=== PATIENT | female | born 1950 ===

== ENCOUNTER 2018-04-23 08:14 | Inpatient (IN) | payer MEDICARE, MEDICAID ==
[2018-04-23 08:14] VITALS: BMI 29.8
[2018-04-23] MEDS ORDERED: Sodium Chloride 0.9% 1,000 ML IV ONE (08:51)
--- NOTE | 2018-04-23 08:56 | C.PDOC ---
History Of Present Illness 67 y/o female presents to ED c/o abdominal pain associated with n/v/d ongoing for the past 10 days. Notes being seen by PMD 3 days ago and was instructed to report to ER if symptoms persist. Patient is on IV antibiotics for back skin infection secondary to back surgery. Denies recent travel, blood in stool, or other complaints. [employer] used. 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) History/Exam Limitations: no limitations Past Medical History Reviewed: Historical Data, Nursing Documentation, Vital Signs Vital Signs: Last Vital Signs Temp 101.4 F H 04/23/18 14:35 Pulse 104 H 04/23/18 14:35 Resp 20 04/23/18 14:35 BP 122/73 04/23/18 14:35 Pulse Ox 98 04/23/18 12:37 - Medical History PMH: HTN - [facility] Procedures LAPAROSCOPIC CHOLECYSTECTOMY (04/09/13) VASCULAR CATH IRRIGATION (04/10/13) Family History: States: Unknown Family Hx - Social History Hx Alcohol Use: No Hx Substance Use: No - Immunization History Hx Tetanus Toxoid Vaccination: No Hx Influenza Vaccination: No Hx Pneumococcal Vaccination: No Review Of Systems Except As Marked, All Systems Reviewed And Found Negative. Constitutional: Positive for: Fever (tactile). Negative for: Chills Gastrointestinal: Positive for: Nausea, Vomiting, Abdominal Pain, Diarrhea. Negative for: Melena, Hematochezia, Hematemesis Genitourinary: Negative for: Dysuria, Frequency, Hematuria, Vaginal Discharge Physical Exam - Physical Exam Appears: Non-toxic, No Acute Distress Skin: Normal Color, Warm, Dry Head: Atraumatic, Normacephalic Eye(s): bilateral: Normal Inspection Oral Mucosa: Moist Neck: Normal ROM, Supple Cardiovascular: Rhythm Regular, No Murmur Respiratory: Normal Breath Sounds, No Rales, No Rhonchi, No Wheezing Gastrointestinal/Abdominal: Soft, Tenderness (periumbilical), No Guarding, No Rebound Back: Normal Inspection Extremity: Normal ROM Neurological/Psych: Oriented x3, Normal Speech ED Course And Treatment - Laboratory Results Result Diagrams: 04/23/18 09:12 04/23/18 09:12 ECG: Interpreted By Me, Viewed By Me ECG Rhythm: Sinus Rhythm ECG Interpretation: No Acute Changes Interpretation Of ECG: Normal intervals, normal axis. Non-specific ST wave changes. Rate From EC O2 Sat by Pulse Oximetry: 98 (RA) Pulse Ox Interpretation: Normal Medical Decision Making Medical Decision Making: Impression: Abdominal pain Plan: Abd Pelvis CT Blood work UA CXR EKG Pepcid, Zofran, Toradol, IV fluids cdiff ordered krider given case discussed with DR Vik Gauthier and will admit to medical surgical floor. Disposition Discussed With Dr.: Compa Gauthier Counseled Patient/Family Regarding: Studies Performed, Diagnosis - Disposition Disposition: HOSPITALIZED Disposition Time: 12:35 Condition: FAIR - Clinical Impression Clinical Impression: Colitis, Hypokalemia - Scribe Statement The provider has reviewed the documentation as recorded by the Scribe KP All medical record entries made by the Scribe were at my direction and personally dictated by me. I have reviewed the chart and agree that the record accurately reflects my personal performance of the history, physical exam, medical decision making, and the department course for this patient. I have also personally directed, reviewed, and agree with the discharge instructions and disposition.
[2018-04-23 09:15] LABS: PLATELET COUNT 351 K/uL (130-400)
[2018-04-23 09:25] LABS: BASO % 0.2 % (0.0-2.0); HEMOGLOBIN 9.8 g/dL (11.0-16.0); LYMPH # 0.7 K/uL (1.0-4.3); LYMPH % 4.6 % (20.0-40.0); MEAN CELL VOLUME 77.8 fL (81.0-99.0); MEAN CORPUSCULAR HEMOGLOBIN 25.6 pg (27.0-31.0); MEAN CORPUSCULAR HGB CONC 32.9 g/dL (33.0-37.0); MEAN PLATELET VOLUME 7.7 fL (7.2-11.7); MONO # 0.5 K/uL (0.0-0.8); MONO % 3.3 % (0.0-10.0); NEUT # 13.8 K/uL (1.8-7.0); NEUT % 91.9 % (50.0-75.0); RBC 3.83 Mil/uL (3.80-5.20); RED CELL DISTRIBUTION WIDTH 14.8 % (11.5-14.5)
[2018-04-23] MEDS ORDERED: Sodium Chloride 0.9% 1,000 ML ONE (09:28)
[2018-04-23 09:41] LABS: ALB/GLOB RATIO 1.2 (1.0-2.1); ALBUMIN 3.7 g/dL (3.5-5.0); ALT/SGPT 23 U/L (9-52); AST/SGOT 16 U/L (14-36); BLOOD UREA NITROGEN 9 mg/dL (7-17); CALCIUM 7.9 mg/dl (8.6-10.4); GFR AFRICAN-AMERICAN > 60; GFR NON-AFRICAN AMERICAN > 60; LIPASE 31 U/L (23-300)
[2018-04-23] MEDS ORDERED: Potassium Chloride 20 mEq 100 ML ONE ×2 (09:46→12:08)
--- NOTE | 2018-04-23 09:57 | RAD ---
Date of service: 04/23/2018 PROCEDURE: CHEST RADIOGRAPH, 1 VIEW HISTORY: abd pain COMPARISON: None available. FINDINGS: LUNGS: No acute infiltrate bilaterally. PLEURA: No pneumothorax or pleural fluid seen. CARDIOVASCULAR: Cardiac size appears normal. No pulmonary vascular congestion. Right sided MediPort in place terminating at the cavoatrial junction region. OSSEOUS STRUCTURES: No significant abnormalities. VISUALIZED UPPER ABDOMEN: Surgical clips noted right upper quadrant abdomen. OTHER FINDINGS: None. IMPRESSION: No acute cardiopulmonary disease appreciated.
[2018-04-23] MEDS ORDERED: Iodixanol 320 MG/ML 100 ML BOTTLE IV ONE (10:24)
[2018-04-23 10:50] LABS: GRANULAR CAST 1 /lpf (0-1); SQUAMOUS EPITHIAL 1 /hpf (0-5); URINE BACTERIA RARE (<OCC); URINE BILIRUBIN NEGATIVE (NEGATIVE); URINE BLOOD 1+ (NEGATIVE); URINE CLARITY Hazy (Clear); URINE COLOR Yellow (YELLOW); URINE GLUCOSE (UA) NORMAL (Normal); URINE LEUKOCYTE ESTERASE 1+ Leu/uL (Negative); URINE PROTEIN 2+ mg/dL (NEGATIVE); URINE UROBILINOGEN NORMAL mg/dL (0.2-1.0)
[2018-04-23 11:59] LABS: LYMPHOCYTE 4 % (20-40); MONOCYTE 6 % (0-10); NEUTROPHIL 90 % (50-75); TOTAL CELLS COUNTED 100
[2018-04-23 12:00] LABS: ANISOCYTOSIS SLIGHT; HYPOCHROMIC SLIGHT; OVALOCYTES SLIGHT; PLATELET ESTIMATE NORMAL (NORMAL); POLYCHROMIC SLIGHT
--- NOTE | 2018-04-23 12:07 | CT ---
Date of service: 04/23/2018 PROCEDURE: CT Abdomen and Pelvis with contrast HISTORY: abd pain COMPARISON: None. TECHNIQUE: Contrast dose: Visipaque 320, 100 cc Radiation dose: Total exam DLP = 533.32 mGy-cm. This CT exam was performed using one or more of the following dose reduction techniques: Automated exposure control, adjustment of the mA and/or kV according to patient size, and/or use of iterative reconstruction technique. FINDINGS: LOWER THORAX: Bibasilar dependent atelectasis identified as well a small hiatal hernia. Cardiomegaly is identified as well. No pleural or pericardial effusion appreciated. A catheter is identified in the distal superior vena cava and right atrium. LIVER: Diffuse diminished attenuation throughout the liver suggests hepatic steatosis without focal mass or intrahepatic biliary dilatation identified. GALLBLADDER AND BILE DUCTS: Gallbladder is not identified and may be surgically absent. Clinically correlate. PANCREAS: Unremarkable. No gross lesion or ductal dilatation. SPLEEN: Unremarkable. ADRENALS: Unremarkable. No mass. KIDNEYS AND URETERS: No obstructive uropathy bilaterally. Small lucencies are seen at the upper as well as midpole left kidney, both of which too small to characterize. No perinephric reaction bilaterally. VASCULATURE: Unremarkable. No aortic aneurysm. BOWEL: The stomach is collapsed and is not evaluated well. There is no small or large bowel obstruction identified however there is diffuse thickening of the entire large bowel including the rectum suggestive of potential C difficile colitis. Clinically correlate further. No abscess or free air. No significant ascites. Small-bowel appears unremarkable as imaged. APPENDIX: The appendix not identified. No CT evidence to suggest appendicitis at this time peer PERITONEUM: Unremarkable. No free fluid. No free air. LYMPH NODES: Unremarkable. No enlarged lymph nodes. BLADDER: Unremarkable. REPRODUCTIVE: Unremarkable. BONES: There is a moderate anterior wedge compression fracture of L1, age indeterminate. Further, there are bilateral laminectomies at L4 and L5 with posterior spinal fusion achieved by transpedicular screws and interconnecting rods and as well as bone graft material from L4-S1 inclusively. L4-5 Grade 1 spondylolisthesis stabilized by the fusion. OTHER FINDINGS: None. IMPRESSION: 1. Pancolitis as discussed above without abscess or free air or ascites. Consider potential C difficile etiology. 2. Hepatic steatosis. 3. L1 anterior wedge compression fracture, moderate severity of indeterminate age. 4. Postoperative changes lower lumbar sacral spine as discussed above.
--- NOTE | 2018-04-23 13:36 | CP.PCM.HP ---
Present on Admission - Present on Admission Any Indicators Present on Admission: No Past Patient History - Past Social History Smoking Status: Never Smoked - CARDIAC Hx Hypertension: Yes - MUSCULOSKELETAL/RHEUMATOLOGICAL Other/Comment: Ambulates with a cane. - GASTROINTESTINAL Other/Comment: Colon CA - PSYCHIATRIC Hx Substance Use: No - SURGICAL HISTORY Other/Comment: back surgery ,March 2018,in [facility] - ANESTHESIA Hx Anesthesia: No Hx Anesthesia Reactions: No Meds Allergies/Adverse Reactions: Allergies Allergy/AdvReac Type Severity Reaction Status Date / Time morphine Allergy Verified 04/23/18 08:25 Physical Exam - Constitutional Appears: Well - Head Exam Head Exam: ATRAUMATIC, NORMAL INSPECTION, NORMOCEPHALIC - Eye Exam Eye Exam: EOMI, Normal appearance, PERRL Pupil Exam: NORMAL ACCOMODATION, PERRL - ENT Exam ENT Exam: Mucous Membranes Moist, Normal Exam - Respiratory Exam Respiratory Exam: Decreased Breath Sounds - Cardiovascular Exam Cardiovascular Exam: REGULAR RHYTHM, +S1, +S2 - GI/Abdominal Exam GI & Abdominal Exam: Diminished Bowel Sounds, Soft - Rectal Exam Rectal Exam: Deferred Results - Vital Signs Recent Vital Signs: Last Vital Signs Temp 98.7 F 04/23/18 08:15 Pulse 97 H 04/23/18 12:32 Resp 22 04/23/18 12:32 BP 136/81 04/23/18 12:32 Pulse Ox 98 04/23/18 12:37 - Labs Result Diagrams: 04/23/18 09:12 04/23/18 09:12 Labs: Laboratory Results - last 24 hr 04/23/18 04/23/18 04/23/18 09:12 09:12 10:22 WBC 15.0 H RBC 3.83 Hgb 9.8 L Hct 29.8 L MCV 77.8 L MCH 25.6 L MCHC 32.9 L RDW 14.8 H Plt Count 351 MPV 7.7 Neut % (Auto) 91.9 H Lymph % (Auto) 4.6 L Gilmer % (Auto) 3.3 Eos % (Auto) 0.0 Baso % (Auto) 0.2 Neut # (Auto) 13.8 H Lymph # (Auto) 0.7 L Gil[place] # (Auto) 0.5 Eos # (Auto) 0.0 Baso # (Auto) 0.0 Neutrophils % (Manual) 90 H Lymphocytes % (Manual) 4 L Monocytes % (Manual) 6 Platelet Estimate Normal Polychromasia Slight Hypochromasia (manual) Slight Anisocytosis (manual) Slight Ovalocytes Slight Sodium 142 Potassium 2.5 L* Chloride 97 L Carbon Dioxide 30 Anion Gap 17 BUN 9 Creatinine 0.9 Est GFR ( Amer) > 60 Est GFR (Non-Af Amer) > 60 Random Glucose 140 H Calcium 7.9 L Total Bilirubin 0.6 AST 16 ALT 23 Alkaline Phosphatase 141 H Troponin I 0.0290 Total Protein 6.9 Albumin 3.7 Globulin 3.2 Albumin/Globulin Ratio 1.2 Lipase 31 Urine Color Yellow Urine Clarity Hazy Urine pH 5.0 Ur Specific [place] 1.016 Urine Protein 2+ H Urine Glucose (UA) Normal Urine Ketones Negative Urine Blood 1+ H Urine Nitrate Negative Urine Bilirubin Negative Urine Urobilinogen Normal Ur Leukocyte Esterase 1+ H Urine WBC (Auto) 21 H Urine RBC (Auto) 7 H Ur Squamous Epith Cells 1 Urine Bacteria Rare Hyaline Casts 3-5 H Granular Casts (Auto) 1 Assessment & Plan - Assessment and Plan (Free Text) Plan: cipro ivpb bid protonix lovenox flagyl 500mg iv pb bid id with dr. chavarria kcl 20 total 5 dose cbc cmp mg po4 tomorrow gi with dr. dwyer
[2018-04-23] MEDS: metroNIDAZOLE IV 500 mg/100 ml 500 MG/100 ML BAG IVPB SCH (18:40)
[2018-04-23] MEDS: Ciprofloxacin 400mg/200ml D5W 400 MG/200 ML BAG IVPB SCH (19:40)
--- NOTE | 2018-04-23 19:54 | PCM.FALL ---
Post Fall Progress Note - Post Fall Fall Date: 04/23/18 Fall Time: 07:18 Description of Fall: Patient is a 67 year female who is admitted for colitis. Patient reports that she had a fall as she was trying to get to the bathroom; she was entangled in the IV lines. Patient reports that she did not hit her head but did landed on her right hip. Patient states that she is not in pain. Patient was AA0x3; oriented to place, time and person. Patient had an unremarkable Neurology exam but with unsteady gait. - Post Fall Exam Vital Sign: Vital Sign Post- Fall: BP: 142/84, HR: 110, Temp: 97.6, O2: 95 % RA and RR: 18 Temp Pulse Resp BP Pulse Ox 99.3 F 95 H 22 135/85 97 04/23/18 16:50 04/23/18 16:50 04/23/18 16:50 04/23/18 16:50 04/23/18 16:50 Skull Exam: Negative for: Scalp wound, Scalp hematoma, Scalp depression, Ridge in skull Eye Exam: Positive for: Pupils equal, Pupils reactive Ear Exam: Negative for: Discharge, Bleeding Nose Exam: Negative for: Discharge, Bleeding Skin Exam: Negative for: Colour, Lacerations, Grazes, Bruising Mouth Exam: Negative for: Tongue bitten, Teeth dislodge Neck Exam: Negative for: Tenderness, Tingling, Weakness Spinal Exam: Negative for: Tenderness, Tingling, Weakness Chest Exam: Negative for: Difficulty breathing, Tenderness in collar bones, Tenderness in ribs Abdomen Exam: Positive for: Tenderness (Lower abdominal tenderness due to patient's current diagnosis of colitis ) Pelvic Exam: Negative for: Tenderness Arm Exam: Negative for: Deformity, Alteration in range of movement Leg Exam: Negative for: Deformity, Alteration in range of movement Impression/Plan: Patient is a 67 year female who is admitted for colitis. Patient reports that she had a fall as she was trying to get to the bathroom; she was entangled in the IV lines; mechanical fall: 1. Encourage to call nursing staff for assistance 2. Bedside commode 3. Fall risk precautions 4. Initiate bed alarm 5. Order right hip X-ray, to rule any acute issues post -fall \
[2018-04-23] MEDS: Enoxaparin 40 mg Syringe SC SCH (23:00)
[2018-04-24] MEDS: metroNIDAZOLE IV 500 mg/100 ml 500 MG/100 ML BAG IVPB SCH ×2 (05:21→18:17)
[2018-04-24] MEDS: Ciprofloxacin 400mg/200ml D5W 400 MG/200 ML BAG IVPB SCH ×2 (06:27→19:09)
[2018-04-24 07:18] LABS: BASO # 0.1 K/uL (0.0-0.2); BASO % 0.2 % (0.0-2.0); EOS % 0.1 % (0.0-4.0); HEMOGLOBIN 11.5 g/dL (11.0-16.0); LYMPH # 0.7 K/uL (1.0-4.3); LYMPH % 2.6 % (20.0-40.0); MEAN CELL VOLUME 78.3 fL (81.0-99.0); MEAN CORPUSCULAR HEMOGLOBIN 25.9 pg (27.0-31.0); MEAN CORPUSCULAR HGB CONC 33.1 g/dL (33.0-37.0); MEAN PLATELET VOLUME 8.3 fL (7.2-11.7); MONO # 0.6 K/uL (0.0-0.8); MONO % 2.3 % (0.0-10.0); NEUT # 26.2 K/uL (1.8-7.0); NEUT % 94.8 % (50.0-75.0); PLATELET COUNT 436 K/uL (130-400); RBC 4.43 Mil/uL (3.80-5.20); RED CELL DISTRIBUTION WIDTH 15.1 % (11.5-14.5)
[2018-04-24 07:25] LABS: WHITE BLOOD COUNT 27.7 K/uL (4.8-10.8)
[2018-04-24 07:38] LABS: ALT/SGPT 20 U/L (9-52); AST/SGOT 22 U/L (14-36); BLOOD UREA NITROGEN 15 mg/dL (7-17); CALCIUM 6.8 mg/dl (8.6-10.4); GFR AFRICAN-AMERICAN > 60; GFR NON-AFRICAN AMERICAN > 60
--- NOTE | 2018-04-24 07:49 | CP.PCM.CON ---
<Darlene Gauthier - Last Filed: 04/24/18 14:36> History of Present Illness - History of Present Illness History of Present Illness: PGY5 GI Initial COnsult Lois Garrison is a 67 y/o female who presents to ED c/o abdominal pain associated with nausea vomiting and diarrhea for the past 2 weeks. Pt states that her symptoms started after her back surgery. She notes starting multiple courses of abx inpt and oupt. She notes having 4-5x BM daily. She notes that the BM are liquidy with some formed BM. Denies any rectal bleeding. Pt also reports having nausea and vomiting for the past 3 days. Her last episode was last night. She notes bilous emesis w/o blood. She is also complaining of abd pain which is diffuse, she notes the pain as 4 out of 10. denies any recent travel or sick exposure. She notes previous colonoscopy but does not recall the findings or results. CT abd revealed lucas colitis. Pt was started on Cipro, IV flagyl and Po vanco. PMHx: HTN, lower back pain PSHx: lumbar back fixation, lap jase Family hx: reviewed, neg otherwise ROS: 12 point ROS conducted, neg other than above Past Patient History - Past Medical History & Family History Past Medical History?: Yes - Past Social History Smoking Status: Never Smoked - CARDIAC Hx Cardiac Disorders: No - PULMONARY Hx Respiratory Disorders: No - NEUROLOGICAL Hx Neurological Disorder: Yes Hx Alzheimer's Disease: Yes (slight as per pt. daughter) - HEENT Hx HEENT Problems: Yes Other/Comment: wear eyeglasses - RENAL Hx Chronic Kidney Disease: No - ENDOCRINE/METABOLIC Hx Endocrine Disorders: No - HEMATOLOGICAL/ONCOLOGICAL Hx Blood Disorders: No - INTEGUMENTARY Hx Dermatological Problems: No - MUSCULOSKELETAL/RHEUMATOLOGICAL Hx Arthritis: Yes Hx Back Pain: Yes Hx Falls: Yes Hx Unsteady Gait: Yes Other/Comment: Ambulates with a cane, pt. uses walker - GASTROINTESTINAL Hx Gastrointestinal Disorders: Yes Hx Colitis: Yes Hx Diarrhea: Yes Hx Gastritis: Yes Other/Comment: Colon CA - GENITOURINARY/GYNECOLOGICAL Hx Genitourinary Disorders: No - PSYCHIATRIC Hx Psychophysiologic Disorder: No Hx Substance Use: No - SURGICAL HISTORY Hx Surgeries: Yes Hx Cholecystectomy: Yes Other/Comment: back surgery ,March 2018,in [facility] - ANESTHESIA Hx Anesthesia: No Hx Anesthesia Reactions: No Hx Malignant Hyperthermia: No Has any member of the family had a problem w/ anesthesia?: No Meds Allergies/Adverse Reactions: Allergies Allergy/AdvReac Type Severity Reaction Status Date / Time morphine Allergy Verified 04/23/18 08:25 - Medications Medications: Current Medications Acetaminophen (Tylenol 325mg Tab) 650 mg PO Q8 PRN PRN Reason: fever Aspirin (Aspirin Chewable) 81 mg PO DAILY [facility] Enoxaparin Sodium (Lovenox) 40 mg SC DAILY [facility] Last Admin: 04/23/18 23:00 Dose: 40 mg Ergocalciferol (Drisdol 50,000 Intl Units Cap) 1 cap PO QWK [facility] Home Med (Meloxicam [Mobic]) 1 tab PO DAILY [facility] Ciprofloxacin (Cipro 400mg/200ml Dsw) 400 mg in 200 mls @ 133 mls/hr IVPB Q12H [facility] PRN Reason: Protocol Last Admin: 04/24/18 06:27 Dose: 133 mls/hr Metronidazole (Flagyl) 500 mg in 100 mls @ 100 mls/hr IVPB Q12H [facility] PRN Reason: Protocol Last Admin: 04/24/18 05:21 Dose: 100 mls/hr Ondansetron HCl (Zofran Inj) 4 mg IVP Q8 PRN PRN Reason: Nausea/Vomiting Last Admin: 04/24/18 04:12 Dose: 4 mg Tramadol HCl (Ultram) 50 mg PO Q6H PRN PRN Reason: Pain, moderate (4-7) Physical Exam - Constitutional Appears: In Acute Distress - Head Exam Head Exam: ATRAUMATIC, NORMOCEPHALIC - Eye Exam Eye Exam: Normal appearance - ENT Exam ENT Exam: Mucous Membranes Moist, Normal Exam - Neck Exam Neck exam: Positive for: Normal Inspection - Respiratory Exam Respiratory Exam: Clear to Auscultation Bilateral, NORMAL BREATHING PATTERN. absent: Rales, Rhonchi, Wheezes, Respiratory Distress - Cardiovascular Exam Cardiovascular Exam: REGULAR RHYTHM, +S1, +S2 - GI/Abdominal Exam GI & Abdominal Exam: Normal Bowel Sounds, Soft. absent: Firm, Guarding, Organomegaly, Rebound, Rigid - Extremities Exam Extremities exam: Negative for: joint swelling, pedal edema - Neurological Exam Neurological exam: Alert, Oriented x3 - Psychiatric Exam Psychiatric exam: Normal Affect, Normal Mood - Skin Skin Exam: Dry, Intact, Normal Color, Warm Results - Vital Signs Recent Vital Signs: Last Vital Signs Temp 98.2 F 04/24/18 04:20 Pulse 112 H 04/24/18 04:20 Resp 20 04/24/18 04:20 BP 116/70 04/24/18 04:20 Pulse Ox 97 04/24/18 04:20 - Labs Result Diagrams: 04/24/18 07:03 04/24/18 07:03 Labs: Laboratory Results - last 24 hr 04/23/18 04/23/18 04/23/18 09:12 09:12 10:22 WBC 15.0 H RBC 3.83 Hgb 9.8 L Hct 29.8 L MCV 77.8 L MCH 25.6 L MCHC 32.9 L RDW 14.8 H Plt Count 351 MPV 7.7 Neut % (Auto) 91.9 H Lymph % (Auto) 4.6 L [place] % (Auto) 3.3 Eos % (Auto) 0.0 Baso % (Auto) 0.2 Neut # (Auto) 13.8 H Lymph # (Auto) 0.7 L [place] # (Auto) 0.5 Eos # (Auto) 0.0 Baso # (Auto) 0.0 Neutrophils % (Manual) 90 H Lymphocytes % (Manual) 4 L Monocytes % (Manual) 6 Platelet Estimate Normal Polychromasia Slight Hypochromasia (manual) Slight Anisocytosis (manual) Slight Ovalocytes Slight Sodium 142 Potassium 2.5 L* Chloride 97 L Carbon Dioxide 30 Anion Gap 17 BUN 9 Creatinine 0.9 Est GFR ( Amer) > 60 Est GFR (Non-Af Amer) > 60 Random Glucose 140 H Calcium 7.9 L Phosphorus Total Bilirubin 0.6 AST 16 ALT 23 Alkaline Phosphatase 141 H Troponin I 0.0290 Total Protein 6.9 Albumin 3.7 Globulin 3.2 Albumin/Globulin Ratio 1.2 Lipase 31 Urine Color Yellow Urine Clarity Hazy Urine pH 5.0 Ur Specific [place] 1.016 Urine Protein 2+ H Urine Glucose (UA) Normal Urine Ketones Negative Urine Blood 1+ H Urine Nitrate Negative Urine Bilirubin Negative Urine Urobilinogen Normal Ur Leukocyte Esterase 1+ H Urine WBC (Auto) 21 H Urine RBC (Auto) 7 H Ur Squamous Epith Cells 1 Urine Bacteria Rare Hyaline Casts 3-5 H Granular Casts (Auto) 1 04/24/18 04/24/18 07:03 07:03 WBC 27.7 H D RBC 4.43 Hgb 11.5 Hct 34.7 MCV 78.3 L MCH 25.9 L MCHC 33.1 RDW 15.1 H Plt Count 436 H MPV 8.3 Neut % (Auto) 94.8 H Lymph % (Auto) 2.6 L [place] % (Auto) 2.3 Eos % (Auto) 0.1 Baso % (Auto) 0.2 Neut # (Auto) 26.2 H Lymph # (Auto) 0.7 L [place] # (Auto) 0.6 Eos # (Auto) 0.0 Baso # (Auto) 0.1 Neutrophils % (Manual) Lymphocytes % (Manual) Monocytes % (Manual) Platelet Estimate Polychromasia Hypochromasia (manual) Anisocytosis (manual) Ovalocytes Sodium 137 Potassium 3.3 L Chloride 104 Carbon Dioxide 22 Anion Gap 15 BUN 15 Creatinine 0.8 Est GFR ( Amer) > 60 Est GFR (Non-Af Amer) > 60 Random Glucose 174 H Calcium 6.8 L Phosphorus 2.1 L Total Bilirubin 0.5 AST 22 ALT 20 Alkaline Phosphatase 146 H Troponin I Total Protein 5.9 L Albumin 3.0 L Globulin 2.9 Albumin/Globulin Ratio 1.0 Lipase Urine Color Urine Clarity Urine pH Ur Specific Barron Urine Protein Urine Glucose (UA) Urine Ketones Urine Blood Urine Nitrate Urine Bilirubin Urine Urobilinogen Ur Leukocyte Esterase Urine WBC (Auto) Urine RBC (Auto) Ur Squamous Epith Cells Urine Bacteria Hyaline Casts Granular Casts (Auto) Assessment & Plan - Assessment and Plan (Free Text) Assessment: Lois Garrison is a 67 y/o female who presents to ED c/o abdominal pain associated with nausea vomiting and diarrhea for the past 2 weeks. Pancolitis, etiology unknown, suspect c. diff; r/o autoimmune and other infectous etiology intractable nausea and vomiting diarrhea 2/2 above SIRS recent lumbar sx Plan: -continue cipro flagyl as per ID -started on vanco 500mg QID -stool c.diff and culture pending -blood cultures pending -continue diet as tolerated -continue IV fluids -recommend strict K monitoring - will eventually benefit from oupt colonoscopy D/W Dr. Myrick <Ariella Myrick - Last Filed: 04/25/18 08:51> Meds - Medications Medications: Current Medications Acetaminophen (Tylenol 325mg Tab) 650 mg PO Q8 PRN PRN Reason: fever Aspirin (Aspirin Chewable) 81 mg PO DAILY [facility] Last Admin: 04/24/18 09:29 Dose: 81 mg Enoxaparin Sodium (Lovenox) 40 mg SC DAILY [facility] Last Admin: 04/24/18 09:29 Dose: 40 mg Ergocalciferol (Drisdol 50,000 Intl Units Cap) 1 cap PO QWK [facility] Last Admin: 04/24/18 09:29 Dose: 1 cap Dexmedetomidine HCl 200 mcg/ (Sodium Chloride) 50 mls @ 3.74 mls/hr IV TITR PRN ; Protocol; 0.2 MCG/KG/HR PRN Reason: Agitation Last Admin: 04/25/18 07:40 Dose: 0.2 mcg/kg/hr, 3.74 mls/hr Meropenem 500 mg/ Sodium (Chloride) 100 mls @ 100 mls/hr IVPB Q8H [facility] PRN Reason: Protocol Last Admin: 04/25/18 07:42 Dose: 100 mls/hr Metronidazole (Flagyl) 500 mg in 100 mls @ 100 mls/hr IVPB Q8H [facility] PRN Reason: Protocol Last Admin: 04/25/18 08:38 Dose: 100 mls/hr Sodium Bicarbonate 100 meq/ (Sodium Chloride) 1,100 mls @ 75 mls/hr IV .[id number] [facility] Last Admin: 04/25/18 07:57 Dose: 75 mls/hr Lactated Ringer's (Lactated Ringer's) 1,000 mls @ 125 mls/hr IV .Q8H [facility] Last Admin: 04/25/18 08:36 Dose: 125 mls/hr Ondansetron HCl (Zofran Inj) 4 mg IVP Q8 PRN PRN Reason: Nausea/Vomiting Last Admin: 04/24/18 13:09 Dose: 4 mg Vancomycin HCl (Vancocin (Oral Or Rectal Use)) 500 mg PO QID [facility] PRN Reason: Protocol Last Admin: 04/24/18 22:50 Dose: 500 mg Results - Vital Signs Recent Vital Signs: Last Vital Signs Temp 98.7 F 04/25/18 06:00 Pulse 113 H 04/25/18 07:10 Resp 20 04/25/18 07:10 BP 108/90 04/25/18 06:48 Pulse Ox 96 04/25/18 07:10 - Labs Result Diagrams: 04/25/18 04:19 04/25/18 04:19 Labs: Laboratory Results - last 24 hr 04/24/18 04/24/18 04/25/18 07:03 22:27 04:13 WBC RBC Hgb Hct MCV MCH MCHC RDW Plt Count MPV Neut % (Auto) Lymph % (Auto) [place] % (Auto) Eos % (Auto) Baso % (Auto) Neut # (Auto) Lymph # (Auto) [place] # (Auto) Eos # (Auto) Baso # (Auto) Neutrophils % (Manual) 92 H Band Neutrophils % 4 H Lymphocytes % (Manual) 3 L Monocytes % (Manual) 1 Myelocytes % Platelet Estimate Normal Large Platelets Present Hypochromasia (manual) Slight Poikilocytosis (manual Slight Anisocytosis (manual) Slight D-Dimer, Quantitative Puncture Site Femoral by pCO2 23 L pO2 56 L HCO3 6.0 L* ABG pH 7.03 L* ABG Total CO2 6.8 L ABG O2 Saturation 82.9 L ABG Base Excess -23.3 L Brandon Test Pos ABG Potassium 4.3 A-a O2 Difference 628.0 Respiratory Index 11.2 Sodium 130.0 L Chloride 97.0 L Glucose 373 H Lactate 12.9 H* Vent Mode Mechanical Rate FiO2 100.0 Tidal Volume PEEP Inspiratory BiPAP 12 Expiratory BiPAP 5 Crit Value Called To Crit Value Called By Devin Crit Value Read Back Y Blood Gas Notified Time 416 Potassium Carbon Dioxide Anion Gap BUN Creatinine Est GFR ( Amer) Est GFR (Non-Af Amer) Random Glucose Calcium Phosphorus Magnesium Total Bilirubin AST ALT Alkaline Phosphatase Troponin I Total Protein Albumin Globulin Albumin/Globulin Ratio Arterial Blood Potassium 4.3 Influenza Typ A,B (EIA) Negative for flu a/b Blood Type Antibody Screen 04/25/18 04/25/18 04/25/18 04:19 04:19 05:06 WBC 70.2 H* D RBC 5.55 H Hgb 13.9 D Hct 46.0 MCV 82.8 D MCH 25.1 L MCHC 30.3 L RDW 16.2 H Plt Count 347 MPV 9.3 Neut % (Auto) 90.9 H Lymph % (Auto) 6.1 L [place] % (Auto) 2.4 Eos % (Auto) 0.4 Baso % (Auto) 0.2 Neut # (Auto) 63.8 H Lymph # (Auto) 4.2 [place] # (Auto) 1.7 H Eos # (Auto) 0.3 Baso # (Auto) 0.1 Neutrophils % (Manual) 75 Band Neutrophils % 12 H* Lymphocytes % (Manual) 9 L Monocytes % (Manual) 2 Myelocytes % 2 H Platelet Estimate Normal Large Platelets Hypochromasia (manual) Poikilocytosis (manual Anisocytosis (manual) Slight D-Dimer, Quantitative Puncture Site R fem pCO2 23 L pO2 226 H HCO3 9.2 L* ABG pH 7.12 L* ABG Total CO2 8.2 L ABG O2 Saturation 100.7 H ABG Base Excess -20.2 L Brandon Test Na ABG Potassium 3.1 L A-a O2 Difference 458.0 Respiratory Index 2.0 Sodium 136 134.0 Chloride 101 104.0 Glucose 291 H Lactate 8.5 H* Vent Mode Prvc Mechanical Rate 20 FiO2 100.0 Tidal Volume 400 PEEP 5 Inspiratory BiPAP Expiratory BiPAP Crit Value Called To Crit Value Called By Jose R mallet cutter Crit Value Read Back Y Blood Gas Notified Time 510 Potassium 4.2 Carbon Dioxide 8 L* D Anion Gap 31 H BUN 23 H Creatinine 2.3 H Est GFR ( Amer) 26 Est GFR (Non-Af Amer) 21 Random Glucose 335 H Calcium 6.7 L Phosphorus 5.7 H Magnesium 2.2 Total Bilirubin 0.5 AST 50 H D ALT 18 Alkaline Phosphatase 160 H Troponin I 0.0370 Total Protein 5.8 L Albumin 2.7 L Globulin 3.1 Albumin/Globulin Ratio 0.9 L Arterial Blood Potassium 3.1 L Influenza Typ A,B (EIA) Blood Type Antibody Screen 04/25/18 04/25/18 05:30 05:35 WBC RBC Hgb Hct MCV MCH MCHC RDW Plt Count MPV Neut % (Auto) Lymph % (Auto) [place] % (Auto) Eos % (Auto) Baso % (Auto) Neut # (Auto) Lymph # (Auto) [place] # (Auto) Eos # (Auto) Baso # (Auto) Neutrophils % (Manual) Band Neutrophils % Lymphocytes % (Manual) Monocytes % (Manual) Myelocytes % Platelet Estimate Large Platelets Hypochromasia (manual) Poikilocytosis (manual Anisocytosis (manual) D-Dimer, Quantitative 5364 H Puncture Site pCO2 pO2 HCO3 ABG pH ABG Total CO2 ABG O2 Saturation ABG Base Excess Brandon Test ABG Potassium A-a O2 Difference Respiratory Index Sodium Chloride Glucose Lactate Vent Mode Mechanical Rate FiO2 Tidal Volume PEEP Inspiratory BiPAP Expiratory BiPAP Crit Value Called To Crit Value Called By Crit Value Read Back Blood Gas Notified Time Potassium Carbon Dioxide Anion Gap BUN Creatinine Est GFR ( Amer) Est GFR (Non-Af Amer) Random Glucose Calcium Phosphorus Magnesium Total Bilirubin AST ALT Alkaline Phosphatase Troponin I Total Protein Albumin Globulin Albumin/Globulin Ratio Arterial Blood Potassium Influenza Typ A,B (EIA) Blood Type O NEGATIVE Antibody Screen Negative Attending/Attestation - Attestation I have personally seen and examined this patient.: Yes I have fully participated in the care of the patient.: Yes I have reviewed all pertinent clinical information: Yes Notes (Text): 04/25/18 08:50 This is a 67 y/o female who presents to ED c/o abdominal pain associated with nausea vomiting and diarrhea for the past 2 weeks likely C diff colitis. Ct reviewed. Will start vancomycin po due to age and SIRS. Send stool infectious work up. Diet as tolerated
[2018-04-24 09:23] LABS: BANDS 4 % (0-2); LYMPHOCYTE 3 % (20-40); MONOCYTE 1 % (0-10); NEUTROPHIL 92 % (50-75); PLATELET ESTIMATE NORMAL (NORMAL); TOTAL CELLS COUNTED 100
[2018-04-24 09:24] LABS: ANISOCYTOSIS SLIGHT; HYPOCHROMIC SLIGHT; LARGE PLATELETS PRESENT; POIKILOCYTOSIS SLIGHT
[2018-04-24] MEDS: Enoxaparin 40 mg Syringe SC SCH (09:29)
[2018-04-24] MEDS ORDERED: Ergocalciferol 50,000 Intl Units Cap PO SCH (10:00)
[2018-04-24] MEDS: Magnesium Sulfate 1 gm in D5W 1 GM/100 ML BAG IVPB SCH ×2 (10:17→10:47)
--- NOTE | 2018-04-24 10:27 | RAD ---
PROCEDURE: Radiographs of the pelvis and bilateral hips HISTORY: Post-fall COMPARISON: None. FINDINGS: BONES: Pelvis: Unremarkable. Right hip:Unremarkable. Left hip:Unremarkable. JOINTS: Right hip: Unremarkable. Left hip: Unremarkable. Sacroiliac Joints: Unremarkable. Pubic symphysis: Unremarkable. SOFT TISSUES: Normal. OTHER FINDINGS: Incidentally noted excreted contrast material in the urinary bladder. Evidence of prior lumbar fixation with pedicle screws and rods. IMPRESSION: No acute fracture.
--- NOTE | 2018-04-24 12:11 | CP.PCM.CON ---
History of Present Illness - History of Present Illness History of Present Illness: 67 y/o female who presents to ED c/o abdominal pain associated with nausea vomiting and diarrhea for the past 2 weeks. Pt states that her symptoms started after her back surgery. hx HTN/ LBP /Colon Ca admitted with colitis PO Vanco added cultures pending GI eval in progress Review of Systems - Review of Systems All systems: reviewed and no additional remarkable complaints except - Constitutional Constitutional: As Per HPI - EENT Eyes: absent: As Per HPI, Blind Spots, Blurred Vision, Change in Vision, Decreased Night Vision, Diplopia, Discharge, Dry Eye, Exophthalmos, Floaters, Irritation, Itchy Eyes, Loss of Peripheral Vision, Pain, Photophobia, Requires Corrective Lenses, Sees Flashes, Spots in Vision, Tunnel Vision, Other Visual Disturbances, Loss of Vision, Other Ears: absent: As Per HPI, Decreased Hearing, Ear Discharge, Ear Pain, Tinnitus, Abnormal Hearing, Disequilibrium, Dizziness, Other Nose/Mouth/Throat: absent: As Per HPI, Epistaxis, Nasal Congestion, Nasal Discharge, Nasal Obstruction, Nasal Trauma, Nose Pain, Post Nasal Drip, Sinus Pain, Sinus Pressure, Bleeding Gums, Change in Voice, Dental Pain, Dry Mouth, Dysphagia, Halitosis, Hoarsness, Lip Swelling, Mouth Lesions, Mouth Pain, Odynophagia, Sore Throat, Throat Swelling, Tongue Swelling, Facial Pain, Neck Pain, Neck Mass, Other - Breasts Breasts: absent: As Per HPI, Change in Shape, Mass, Pain, Nipple Discharge, Nipple Inversion, Skin Changes, Swelling, Other - Cardiovascular Cardiovascular: As Per HPI - Respiratory Respiratory: absent: As Per HPI, Cough, Dyspnea, Hemoptysis, Dyspnea on Exertion , Wheezing, Snoring, Stridor, Pain on Inspiration, Chest Congestion, Excessive Mucous Production, Change in Mucous Color, Pain with Coughing, Other - Gastrointestinal Gastrointestinal: As Per HPI - Genitourinary Genitourinary: absent: As Per HPI, Change in Urinary Stream, Difficulty Urinating, Dysuria, Flank Pain, Hematuria, Pyuria, Nocturia, Urinary Incontinence, Urinary Frequency, Urinary Hesitance, Urinary Urgency, Voiding Freq/Small Amts, Freq UTI, Hx Renal/Bladder Calculi, Hx /Renal Surgery, Bladder Distension, Other - Reproductive: Female Reproductive:Female: absent: As Per HPI, Amenorrhea, Amenorrhea/ Control, Currently Menstual, Cycle <21 Days, Cycle >35 Days, Cycle Variable, Menses 1-7 Days, Menses >/= 8 Days, Menses Variable, Cycle > 4 Weeks Between, No Menses for 6 Months, Heavy Menses, Light Menses, Normal Menses, Spotting Between Cycles , S/P Hysterectomy, Menopausal, Post Menopausal, Premenarche, Abnormal Vaginal Bleeding, Dysmenorrhea, Dyspareunia, Genital Lesions, Genital Pruritis, Pelvic Pain, Prolapse Symptoms, Sexual Dysfunction, Vaginal Discharge, Vaginal Dryness , Vaginal Odor, Vaginal Pruritis, Other - Menstruation Menstruation: absent: As Per HPI, Amenorrhea, Amenorrhea/ Control, Currently Menstual, Cycle <21 Days, Cycle >35 Days, Cycle Variable, Menses 1-7 Days, Menses >/= 8 Days, Menses Variable, Cycle > 4 Weeks Between, No Menses for 6 Months, Heavy Menses, Light Menses, Normal Menses, Spotting Between Cycles , S/P Hysterectomy, Menopausal, Post Menopausal, Premenarche, Abnormal Vaginal Bleeding, Dysmenorrhea, Other - Musculoskeletal Musculoskeletal: absent: As Per HPI, Abnormal Gait, Arthralgias, Atrophy, Back Pain, Deformity, Joint Swelling, Limited Range of Motion, Loss of Height, Muscle Cramps, Muscle Weakness, Myalgias, Neck Pain, Numbness, Radiating Pain into Limb, Stiffness, Tingling, Other - Integumentary Integumentary: absent: As Per HPI, Acne, Alopecia, Bleeding Lesions, Change in Hair, Change in Nails, Change in Pigmentation, Changing Lesions, Dry Skin, Erythema, Furuncle, Hirsutism, Lesions, New Lesions, Non-Healing Lesions, Photosensitivity, Pruritus, Rash, Skin Pain, Skin Ulcer, Sores, Striae, Swelling , Unusual Bruising, Wounds, Jaundice, Other Past Patient History - Past Medical History & Family History Past Medical History?: Yes - Past Social History Smoking Status: Never Smoked - CARDIAC Hx Cardiac Disorders: No - PULMONARY Hx Respiratory Disorders: No - NEUROLOGICAL Hx Neurological Disorder: Yes Hx Alzheimer's Disease: Yes (slight as per pt. daughter) - HEENT Hx HEENT Problems: Yes Other/Comment: wear eyeglasses - RENAL Hx Chronic Kidney Disease: No - ENDOCRINE/METABOLIC Hx Endocrine Disorders: No - HEMATOLOGICAL/ONCOLOGICAL Hx Blood Disorders: No - INTEGUMENTARY Hx Dermatological Problems: No - MUSCULOSKELETAL/RHEUMATOLOGICAL Hx Arthritis: Yes Hx Back Pain: Yes Hx Falls: Yes Hx Unsteady Gait: Yes Other/Comment: Ambulates with a cane, pt. uses walker - GASTROINTESTINAL Hx Gastrointestinal Disorders: Yes Hx Colitis: Yes Hx Diarrhea: Yes Hx Gastritis: Yes Other/Comment: Colon CA - GENITOURINARY/GYNECOLOGICAL Hx Genitourinary Disorders: No - PSYCHIATRIC Hx Psychophysiologic Disorder: No Hx Substance Use: No - SURGICAL HISTORY Hx Surgeries: Yes Hx Cholecystectomy: Yes Other/Comment: back surgery ,March 2018,in [facility] - ANESTHESIA Hx Anesthesia: No Hx Anesthesia Reactions: No Hx Malignant Hyperthermia: No Has any member of the family had a problem w/ anesthesia?: No Meds Allergies/Adverse Reactions: Allergies Allergy/AdvReac Type Severity Reaction Status Date / Time morphine Allergy Verified 04/23/18 08:25 - Medications Medications: Current Medications Acetaminophen (Tylenol 325mg Tab) 650 mg PO Q8 PRN PRN Reason: fever Aspirin (Aspirin Chewable) 81 mg PO DAILY [facility] Last Admin: 04/24/18 09:29 Dose: 81 mg Enoxaparin Sodium (Lovenox) 40 mg SC DAILY [facility] Last Admin: 04/24/18 09:29 Dose: 40 mg Ergocalciferol (Drisdol 50,000 Intl Units Cap) 1 cap PO QWK [facility] Last Admin: 04/24/18 09:29 Dose: 1 cap Home Med (Meloxicam [Mobic]) 1 tab PO DAILY [facility] Ciprofloxacin (Cipro 400mg/200ml Dsw) 400 mg in 200 mls @ 133 mls/hr IVPB Q12H [facility] PRN Reason: Protocol Last Admin: 04/24/18 06:27 Dose: 133 mls/hr Metronidazole (Flagyl) 500 mg in 100 mls @ 100 mls/hr IVPB Q12H [facility] PRN Reason: Protocol Last Admin: 04/24/18 05:21 Dose: 100 mls/hr Ondansetron HCl (Zofran Inj) 4 mg IVP Q8 PRN PRN Reason: Nausea/Vomiting Last Admin: 04/24/18 04:12 Dose: 4 mg Tramadol HCl (Ultram) 50 mg PO Q6H PRN PRN Reason: Pain, moderate (4-7) Vancomycin HCl (Vancocin (Oral Or Rectal Use)) 500 mg PO QID [facility] PRN Reason: Protocol Physical Exam - Constitutional Appears: Non-toxic, Chronically Ill - Head Exam Head Exam: NORMOCEPHALIC - Eye Exam Eye Exam: absent: Scleral icterus - ENT Exam ENT Exam: Mucous Membranes Dry - Neck Exam Neck exam: Negative for: Lymphadenopathy - Respiratory Exam Respiratory Exam: Decreased Breath Sounds - Cardiovascular Exam Cardiovascular Exam: REGULAR RHYTHM - GI/Abdominal Exam GI & Abdominal Exam: Diminished Bowel Sounds, Distended, Tenderness. absent: Guarding, Rebound, Rigid - Rectal Exam Rectal Exam: Deferred - Exam Exam: NORMAL INSPECTION - Extremities Exam Extremities exam: Negative for: calf tenderness, pedal edema - Back Exam Back exam: absent: CVA tenderness (L), CVA tenderness (R) - Neurological Exam Neurological exam: Alert, CN II-XII Intact, Oriented x3, Reflexes Normal - Psychiatric Exam Psychiatric exam: Normal Mood - Skin Skin Exam: Dry Results - Vital Signs Recent Vital Signs: Last Vital Signs Temp 98.2 F 04/24/18 08:41 Pulse 110 H 04/24/18 08:41 Resp 18 04/24/18 08:41 BP 101/67 04/24/18 08:41 Pulse Ox 94 L 04/24/18 08:41 - Labs Result Diagrams: 04/25/18 10:42 04/25/18 04:19 Labs: Laboratory Results - last 24 hr 04/24/18 04/24/18 07:03 07:03 WBC 27.7 H D RBC 4.43 Hgb 11.5 Hct 34.7 MCV 78.3 L MCH 25.9 L MCHC 33.1 RDW 15.1 H Plt Count 436 H MPV 8.3 Neut % (Auto) 94.8 H Lymph % (Auto) 2.6 L [place] % (Auto) 2.3 Eos % (Auto) 0.1 Baso % (Auto) 0.2 Neut # (Auto) 26.2 H Lymph # (Auto) 0.7 L [place] # (Auto) 0.6 Eos # (Auto) 0.0 Baso # (Auto) 0.1 Neutrophils % (Manual) 92 H Band Neutrophils % 4 H Lymphocytes % (Manual) 3 L Monocytes % (Manual) 1 Platelet Estimate Normal Large Platelets Present Hypochromasia (manual) Slight Poikilocytosis (manual Slight Anisocytosis (manual) Slight Sodium 137 Potassium 3.3 L Chloride 104 Carbon Dioxide 22 Anion Gap 15 BUN 15 Creatinine 0.8 Est GFR ( Amer) > 60 Est GFR (Non-Af Amer) > 60 Random Glucose 174 H Calcium 6.8 L Phosphorus 2.1 L Magnesium 1.0 L* Total Bilirubin 0.5 AST 22 ALT 20 Alkaline Phosphatase 146 H Total Protein 5.9 L Albumin 3.0 L Globulin 2.9 Albumin/Globulin Ratio 1.0 Assessment & Plan - Assessment and Plan (Free Text) Plan: colitis r/o c diff hx colon Ca GI eval start PO Vanco send cultures and c diff
[2018-04-24] MEDS: Vancomycin 125 MG/5 ML SOLN (ORAL/RECTAL) PO SCH ×3 (13:43→22:50)
[2018-04-24] MEDS ORDERED: Sodium Chloride 0.9% 500 ML IV ONE (17:08)
--- NOTE | 2018-04-24 17:22 | PCM.RRT ---
NUCLEAR SECURITY OFFICER Nurses Assessment New IV Insertion Tolerance: Good - Head Head Exam: ATRAUMATIC, NORMAL INSPECTION, NORMOCEPHALIC - Eyes Eye Exam: EOMI, Normal appearance, PERRL - Respiratory Exam Respiratory Exam: Clear to Ausculation Bilateral, NORMAL BREATHING PATTERN - Cardiovascular Exam Cardiovascular Exam: REGULAR RHYTHM, +S1, +S2 - GI/Abdominal Exam GI & Abdominal Exam: Soft, Normal Bowel Sounds - Neurological Exam Neurological Exam: Alert, Awake, CN II-XII Intact, Oriented x3 Plan - Assessment of Findings&Treatment Plan 67 year old female with a past medical history of hypertension and lower back pain who was admitted for abdominal pain associated with nausea and vomiting for the past two weeks. NUCLEAR SECURITY OFFICER was called when patient finished urinating and extremities began to shake and her eyes rolled began rolling per Nurse. NUCLEAR SECURITY OFFICER was called for suspected Seizure. After examining patient it was ruled out a seizure and more likely a vasovagal response from using the toilet. Initial VS: BP:116/83 T:97.3 95% on Room Air Blood sugar:225 Heart Rate:96 Plan: -Ativan 2mg IVP (Ativan cancelled after examining patient and was found to not have seizure activity) -500 CC NS Bolus -STAT EKG (showed Sinus tachycardia @109bpm) Dispo: Patient given fluid boluse. Repeat Vital signs after bolus is completed in an hour. Patient hemodynamically stable. NUCLEAR SECURITY OFFICER called @5:20p.m.
[2018-04-24] MEDS ORDERED: Naproxen 550 mg Tab PO PRN (18:00)
--- NOTE | 2018-04-24 19:20 | CP.PCM.PN ---
Subjective - Date & Time of Evaluation Date of Evaluation: 04/24/18 Time of Evaluation: 10:00 - Subjective Subjective: clinically same Objective - Vital Signs/Intake and Output Vital Signs (last 24 hours): Temp Pulse Resp BP Pulse Ox 98.3 F 115 H 20 124/86 96 04/24/18 16:00 04/24/18 16:00 04/24/18 16:00 04/24/18 16:00 04/24/18 16:00 - Medications Medications: Current Medications Acetaminophen (Tylenol 325mg Tab) 650 mg PO Q8 PRN PRN Reason: fever Aspirin (Aspirin Chewable) 81 mg PO DAILY [facility] Last Admin: 04/24/18 09:29 Dose: 81 mg Enoxaparin Sodium (Lovenox) 40 mg SC DAILY [facility] Last Admin: 04/24/18 09:29 Dose: 40 mg Ergocalciferol (Drisdol 50,000 Intl Units Cap) 1 cap PO QWK [facility] Last Admin: 04/24/18 09:29 Dose: 1 cap Ciprofloxacin (Cipro 400mg/200ml Dsw) 400 mg in 200 mls @ 133 mls/hr IVPB Q12H [facility] PRN Reason: Protocol Last Admin: 04/24/18 19:09 Dose: 133 mls/hr Metronidazole (Flagyl) 500 mg in 100 mls @ 100 mls/hr IVPB Q12H [facility] PRN Reason: Protocol Last Admin: 04/24/18 18:17 Dose: 100 mls/hr Naproxen (Anaprox Ds) 550 mg PO BID PRN PRN Reason: Pain, Mild (1-3) Ondansetron HCl (Zofran Inj) 4 mg IVP Q8 PRN PRN Reason: Nausea/Vomiting Last Admin: 04/24/18 13:09 Dose: 4 mg Tramadol HCl (Ultram) 50 mg PO Q6H PRN PRN Reason: Pain, moderate (4-7) Vancomycin HCl (Vancocin (Oral Or Rectal Use)) 500 mg PO QID [facility] PRN Reason: Protocol Last Admin: 04/24/18 13:43 Dose: 500 mg - Labs Labs: 04/24/18 07:03 04/24/18 07:03 - Constitutional Appears: Well - Head Exam Head Exam: ATRAUMATIC, NORMAL INSPECTION, NORMOCEPHALIC - Eye Exam Eye Exam: EOMI, Normal appearance, PERRL Pupil Exam: NORMAL ACCOMODATION, PERRL - ENT Exam ENT Exam: Mucous Membranes Moist, Normal Exam - Neck Exam Neck Exam: Full ROM, Normal Inspection. absent: Lymphadenopathy - Respiratory Exam Respiratory Exam: Decreased Breath Sounds - Cardiovascular Exam Cardiovascular Exam: REGULAR RHYTHM, +S1, +S2 - GI/Abdominal Exam GI & Abdominal Exam: Soft, Diminished Bowel Sounds - Rectal Exam Rectal Exam: Deferred
[2018-04-24] MEDS ORDERED: Dextrose 5%/0.45% NS 1,000 ML IV SCH (19:45)
--- NOTE | 2018-04-24 23:59 | CARD ---
APPROVED REPORT Date of service: 04/23/2018 EKG Measurement Heart [id number] [id number] <Conclusion> Normal sinus rhythm Nonspecific ST abnormality Abnormal ECG
[2018-04-25] MEDS: Magnesium Sulfate 1 gm in D5W 1 GM/100 ML BAG IVPB SCH ×2 (04:10→04:30)
[2018-04-25 04:16] LABS: ABG ALLEN TEST POS; ARTERIAL BLOOD GAS O2 SAT 82.9 % (95-98); ARTERIAL BLOOD GAS PCO2 23 mm/Hg (35-45); ARTERIAL BLOOD GAS PH 7.03 (7.35-7.45); ARTERIAL BLOOD GAS PO2 56 mm/Hg (80-100); ARTERIAL BLOOD GAS TCO2 6.8 mmol/L (22-28)
[2018-04-25 04:32] LABS: BASO # 0.1 K/uL (0.0-0.2); BASO % 0.2 % (0.0-2.0); EOS # 0.3 K/uL (0.0-0.7); EOS % 0.4 % (0.0-4.0); LYMPH # 4.2 K/uL (1.0-4.3); LYMPH % 6.1 % (20.0-40.0); MEAN CELL VOLUME 82.8 fL (81.0-99.0); MEAN CORPUSCULAR HEMOGLOBIN 25.1 pg (27.0-31.0); MEAN CORPUSCULAR HGB CONC 30.3 g/dL (33.0-37.0); MEAN PLATELET VOLUME 9.3 fL (7.2-11.7); MONO # 1.7 K/uL (0.0-0.8); MONO % 2.4 % (0.0-10.0); NEUT # 63.8 K/uL (1.8-7.0); NEUT % 90.9 % (50.0-75.0); PLATELET COUNT 347 K/uL (130-400); RBC 5.55 Mil/uL (3.80-5.20); RED CELL DISTRIBUTION WIDTH 16.2 % (11.5-14.5)
[2018-04-25 04:36] LABS: HEMOGLOBIN 13.9 g/dL (11.0-16.0); WHITE BLOOD COUNT 70.2 K/uL (4.8-10.8)
[2018-04-25 04:49] LABS: TROPONIN I 0.037 ng/mL (0.00-0.120)
[2018-04-25 05:06] LABS: ALB/GLOB RATIO 0.9 (1.0-2.1); ALBUMIN 2.7 g/dL (3.5-5.0); CALCIUM 6.7 mg/dl (8.6-10.4)
[2018-04-25 05:10] LABS: ARTERIAL BLOOD GAS HCO3 9.2 mmol/L (21-28); ARTERIAL BLOOD GAS O2 SAT 100.7 % (95-98); ARTERIAL BLOOD GAS PCO2 23 mm/Hg (35-45); ARTERIAL BLOOD GAS PH 7.12 (7.35-7.45); ARTERIAL BLOOD GAS PO2 226 mm/Hg (80-100); ARTERIAL BLOOD GAS TCO2 8.2 mmol/L (22-28)
[2018-04-25] MEDS ORDERED: Sodium Chloride 0.9% 1,000 ML IV ONE ×2 (05:30→06:24)
--- NOTE | 2018-04-25 06:03 | CP.PCM.CON ---
History of Present Illness - History of Present Illness History of Present Illness: CCM 67 yo female with hx HTN/ LBP /Colon Ca admitted with colitis had rapid response yest for ?vagal episode after bathroom. Today had Rapid responise for tachypnea / lethargy /hypotension. Pt placed on BIPAP then intubated by hospitalist and brought to ICU. Pt receiving IV fluid. Pt received etomidate and ativan. Unable to give hx at present. ROS- as noted All-morphine social- no tob/ etoh/ drugs Meds- reviewed FH- Unknown PE T-98.7 P-112 R-25 BP85/63-->109/78 Intubated, sedated Perrl Neck- no jvd lungs- bilat bs Heart-rr abd-sl. distended, bs+, soft Ext- no edema Labs, EKG, x-rays reviewed A&P Acute Resp Failure Metabolic Acidosis Sauer-Colitis- r/o C.Dif CHANDAN Hx Colon Ca Hx HTN cont IV fluid optimize vent support cont C.Dif emperic Rx maintain optimal lytes Repeat labs /lactate/ abg titrate sedation / analesia ID f/u Surgery eval DVT & GI prophylaxis Critical care time with patient 40 min Past Patient History - Past Medical History & Family History Past Medical History?: Yes - Past Social History Smoking Status: Never Smoked - CARDIAC Hx Cardiac Disorders: No - PULMONARY Hx Respiratory Disorders: No - NEUROLOGICAL Hx Neurological Disorder: Yes Hx Alzheimer's Disease: Yes (slight as per pt. daughter) - HEENT Hx HEENT Problems: Yes Other/Comment: wear eyeglasses - RENAL Hx Chronic Kidney Disease: No - ENDOCRINE/METABOLIC Hx Endocrine Disorders: No - HEMATOLOGICAL/ONCOLOGICAL Hx Blood Disorders: No - INTEGUMENTARY Hx Dermatological Problems: No - MUSCULOSKELETAL/RHEUMATOLOGICAL Hx Arthritis: Yes Hx Back Pain: Yes Hx Falls: Yes Hx Unsteady Gait: Yes Other/Comment: Ambulates with a cane, pt. uses walker - GASTROINTESTINAL Hx Gastrointestinal Disorders: Yes Hx Colitis: Yes Hx Diarrhea: Yes Hx Gastritis: Yes Other/Comment: Colon CA - GENITOURINARY/GYNECOLOGICAL Hx Genitourinary Disorders: No - PSYCHIATRIC Hx Psychophysiologic Disorder: No Hx Substance Use: No - SURGICAL HISTORY Hx Surgeries: Yes Hx Cholecystectomy: Yes Other/Comment: back surgery ,March 2018,in [facility] - ANESTHESIA Hx Anesthesia: No Hx Anesthesia Reactions: No Hx Malignant Hyperthermia: No Has any member of the family had a problem w/ anesthesia?: No Meds Allergies/Adverse Reactions: Allergies Allergy/AdvReac Type Severity Reaction Status Date / Time morphine Allergy Verified 04/23/18 08:25 - Medications Medications: Current Medications Acetaminophen (Tylenol 325mg Tab) 650 mg PO Q8 PRN PRN Reason: fever Aspirin (Aspirin Chewable) 81 mg PO DAILY [facility] Last Admin: 04/24/18 09:29 Dose: 81 mg Enoxaparin Sodium (Lovenox) 40 mg SC DAILY [facility] Last Admin: 04/24/18 09:29 Dose: 40 mg Ergocalciferol (Drisdol 50,000 Intl Units Cap) 1 cap PO QWK [facility] Last Admin: 04/24/18 09:29 Dose: 1 cap Ciprofloxacin (Cipro 400mg/200ml Dsw) 400 mg in 200 mls @ 133 mls/hr IVPB Q12H [facility] PRN Reason: Protocol Last Admin: 04/24/18 19:09 Dose: 133 mls/hr Metronidazole (Flagyl) 500 mg in 100 mls @ 100 mls/hr IVPB Q12H [facility] PRN Reason: Protocol Last Admin: 04/24/18 18:17 Dose: 100 mls/hr Dextrose/Sodium Chloride (Dextrose 5%/0.45% Ns 1000 Ml) 1,000 mls @ 50 mls/hr IV .Q20H [facility] Last Admin: 04/24/18 20:01 Dose: 50 mls/hr Sodium Chloride (Sodium Chloride 0.9%) 1,000 mls @ 1,000 mls/hr IV .Q1H ONE Stop: 04/25/18 06:29 Fentanyl Citrate 2,500 mcg/ (Sodium Chloride) 250 mls @ 14.96 mls/hr IV .[id number] [facility]; 2 MCG/KG/HR PRN Reason: Protocol Naproxen (Anaprox Ds) 550 mg PO BID PRN PRN Reason: Pain, Mild (1-3) Ondansetron HCl (Zofran Inj) 4 mg IVP Q8 PRN PRN Reason: Nausea/Vomiting Last Admin: 04/24/18 13:09 Dose: 4 mg Vancomycin HCl (Vancocin (Oral Or Rectal Use)) 500 mg PO QID [facility] PRN Reason: Protocol Last Admin: 04/24/18 22:50 Dose: 500 mg Results - Vital Signs Recent Vital Signs: Last Vital Signs Temp 97.3 F L 04/24/18 23:55 Pulse 115 H 04/24/18 23:55 Resp 20 04/24/18 23:55 BP 108/81 04/24/18 23:55 Pulse Ox 96 04/24/18 23:55 - Labs Result Diagrams: 04/25/18 04:19 04/25/18 04:19 Labs: Laboratory Results - last 24 hr 04/24/18 04/24/18 04/24/18 07:03 07:03 22:27 WBC 27.7 H D RBC 4.43 Hgb 11.5 Hct 34.7 MCV 78.3 L MCH 25.9 L MCHC 33.1 RDW 15.1 H Plt Count 436 H MPV 8.3 Neut % (Auto) 94.8 H Lymph % (Auto) 2.6 L [place] % (Auto) 2.3 Eos % (Auto) 0.1 Baso % (Auto) 0.2 Neut # (Auto) 26.2 H Lymph # (Auto) 0.7 L [place] # (Auto) 0.6 Eos # (Auto) 0.0 Baso # (Auto) 0.1 Neutrophils % (Manual) 92 H Band Neutrophils % 4 H Lymphocytes % (Manual) 3 L Monocytes % (Manual) 1 Platelet Estimate Normal Large Platelets Present Hypochromasia (manual) Slight Poikilocytosis (manual Slight Anisocytosis (manual) Slight Puncture Site pCO2 pO2 HCO3 ABG pH ABG Total CO2 ABG O2 Saturation ABG Base Excess [place] Test ABG Potassium A-a O2 Difference Respiratory Index Glucose Lactate Vent Mode Mechanical Rate FiO2 Tidal Volume PEEP Inspiratory BiPAP Expiratory BiPAP Crit Value Called To Crit Value Called By Crit Value Read Back Blood Gas Notified Time Sodium 137 Potassium 3.3 L Chloride 104 Carbon Dioxide 22 Anion Gap 15 BUN 15 Creatinine 0.8 Est GFR ( Amer) > 60 Est GFR (Non-Af Amer) > 60 Random Glucose 174 H Calcium 6.8 L Phosphorus 2.1 L Magnesium 1.0 L* Total Bilirubin 0.5 AST 22 ALT 20 Alkaline Phosphatase 146 H Troponin I Total Protein 5.9 L Albumin 3.0 L Globulin 2.9 Albumin/Globulin Ratio 1.0 Arterial Blood Potassium Influenza Typ A,B (EIA) Negative for flu a/b 04/25/18 04/25/18 04/25/18 04:13 04:19 04:19 WBC 70.2 H* D RBC 5.55 H Hgb 13.9 D Hct 46.0 MCV 82.8 D MCH 25.1 L MCHC 30.3 L RDW 16.2 H Plt Count 347 MPV 9.3 Neut % (Auto) 90.9 H Lymph % (Auto) 6.1 L [place] % (Auto) 2.4 Eos % (Auto) 0.4 Baso % (Auto) 0.2 Neut # (Auto) 63.8 H Lymph # (Auto) 4.2 [place] # (Auto) 1.7 H Eos # (Auto) 0.3 Baso # (Auto) 0.1 Neutrophils % (Manual) Band Neutrophils % Lymphocytes % (Manual) Monocytes % (Manual) Platelet Estimate Large Platelets Hypochromasia (manual) Poikilocytosis (manual Anisocytosis (manual) Puncture Site Femoral by pCO2 23 L pO2 56 L HCO3 6.0 L* ABG pH 7.03 L* ABG Total CO2 6.8 L ABG O2 Saturation 82.9 L ABG Base Excess -23.3 L Brandon Test Pos ABG Potassium 4.3 A-a O2 Difference 628.0 Respiratory Index 11.2 Glucose 373 H Lactate 12.9 H* Vent Mode Mechanical Rate FiO2 100.0 Tidal Volume PEEP Inspiratory BiPAP 12 Expiratory BiPAP 5 Crit Value Called To Crit Value Called By Devin Crit Value Read Back Y Blood Gas Notified Time 416 Sodium 130.0 L 136 Potassium 4.2 Chloride 97.0 L 101 Carbon Dioxide 8 L* D Anion Gap 31 H BUN 23 H Creatinine 2.3 H Est GFR ( Amer) 26 Est GFR (Non-Af Amer) 21 Random Glucose 335 H Calcium 6.7 L Phosphorus 5.7 H Magnesium 2.2 Total Bilirubin 0.5 AST 50 H D ALT 18 Alkaline Phosphatase 160 H Troponin I 0.0370 Total Protein 5.8 L Albumin 2.7 L Globulin 3.1 Albumin/Globulin Ratio 0.9 L Arterial Blood Potassium 4.3 Influenza Typ A,B (EIA) 04/25/18 05:06 WBC RBC Hgb Hct MCV MCH MCHC RDW Plt Count MPV Neut % (Auto) Lymph % (Auto) [place] % (Auto) Eos % (Auto) Baso % (Auto) Neut # (Auto) Lymph # (Auto) [place] # (Auto) Eos # (Auto) Baso # (Auto) Neutrophils % (Manual) Band Neutrophils % Lymphocytes % (Manual) Monocytes % (Manual) Platelet Estimate Large Platelets Hypochromasia (manual) Poikilocytosis (manual Anisocytosis (manual) Puncture Site R fem pCO2 23 L pO2 226 H HCO3 9.2 L* ABG pH 7.12 L* ABG Total CO2 8.2 L ABG O2 Saturation 100.7 H ABG Base Excess -20.2 L [place] Test Na ABG Potassium 3.1 L A-a O2 Difference 458.0 Respiratory Index 2.0 Glucose 291 H Lactate 8.5 H* Vent Mode Prvc Mechanical Rate 20 FiO2 100.0 Tidal Volume 400 PEEP 5 Inspiratory BiPAP Expiratory BiPAP Crit Value Called To Crit Value Called By Jose R medication aide Crit Value Read Back Y Blood Gas Notified Time 510 Sodium 134.0 Potassium Chloride 104.0 Carbon Dioxide Anion Gap BUN Creatinine Est GFR ( Amer) Est GFR (Non-Af Amer) Random Glucose Calcium Phosphorus Magnesium Total Bilirubin AST ALT Alkaline Phosphatase Troponin I Total Protein Albumin Globulin Albumin/Globulin Ratio Arterial Blood Potassium 3.1 L Influenza Typ A,B (EIA) Assessment & Plan (1) Acute respiratory failure Status: Acute (2) Colitis Status: Acute (3) CHANDAN (acute kidney injury) Status: Acute (4) Metabolic acidosis due to diabetes mellitus Status: Acute (5) Metabolic acidosis Status: Acute
[2018-04-25] MEDS ORDERED: Dexmedetomidine Hydrochloride 200 MCG in Sodium Chloride 0.9% 48 ML IV PRN (06:07)
--- NOTE | 2018-04-25 06:16 | CP.PCM.PN ---
Subjective - Date & Time of Evaluation Date of Evaluation: 04/25/18 Time of Evaluation: 04:00 - Subjective Subjective: Responded to eval as patient noticed sob, tachypnic, cold, clammy, vital could not be recorded, she was admitted with lucas colitis, leucocytosis. Again patient was cold clammy pulses hard to feel by me, RR 40-50/min, HR 130/min sinus on the monitor, VBG showed ph7 co2 23, lactate 12. Decision made to intubate her, as she was unable to compenseate severe acidosis, ivf bolus was run, her port was accessed, CXR done didn't show any pulmonary pathology. Patient intubated by me second attempt with size 7, see note, initial attempt made with size 7.5 but difficult to insert. Patient brought to ICU, type and cross ordered, OG tube inserted, 18G line inserted in right EJ, with good flow and return. IJ viewed with USG was very collapsable. lab started to show wbc 70K, hemoglobin 13.9, creat2.3, bicarb8. CXR showed ET tip at aye, ET will be pulled 2-3 cm. Patient signed out to executive marketing assistant at bedside in ICU. Objective - Vital Signs/Intake and Output Vital Signs (last 24 hours): Temp Pulse Resp BP Pulse Ox 97.3 F L 115 H 20 108/81 96 04/24/18 23:55 04/24/18 23:55 04/24/18 23:55 04/24/18 23:55 04/24/18 23:55 Intake and Output: 04/24/18 04/25/18 18:59 06:59 Intake Total 1200 Balance 1200 - Medications Medications: Current Medications Acetaminophen (Tylenol 325mg Tab) 650 mg PO Q8 PRN PRN Reason: fever Aspirin (Aspirin Chewable) 81 mg PO DAILY [facility] Last Admin: 04/24/18 09:29 Dose: 81 mg Enoxaparin Sodium (Lovenox) 40 mg SC DAILY [facility] Last Admin: 04/24/18 09:29 Dose: 40 mg Ergocalciferol (Drisdol 50,000 Intl Units Cap) 1 cap PO QWK [facility] Last Admin: 04/24/18 09:29 Dose: 1 cap Ciprofloxacin (Cipro 400mg/200ml Dsw) 400 mg in 200 mls @ 133 mls/hr IVPB Q12H [facility] PRN Reason: Protocol Last Admin: 04/24/18 19:09 Dose: 133 mls/hr Metronidazole (Flagyl) 500 mg in 100 mls @ 100 mls/hr IVPB Q12H [facility] PRN Reason: Protocol Last Admin: 04/24/18 18:17 Dose: 100 mls/hr Dextrose/Sodium Chloride (Dextrose 5%/0.45% Ns 1000 Ml) 1,000 mls @ 50 mls/hr IV .Q20H [facility] Last Admin: 04/24/18 20:01 Dose: 50 mls/hr Sodium Chloride (Sodium Chloride 0.9%) 1,000 mls @ 1,000 mls/hr IV .Q1H ONE Stop: 04/25/18 06:29 Fentanyl Citrate 2,500 mcg/ (Sodium Chloride) 250 mls @ 14.96 mls/hr IV .[id number] [facility]; 2 MCG/KG/HR PRN Reason: Protocol Dexmedetomidine HCl 200 mcg/ (Sodium Chloride) 50 mls @ 3.74 mls/hr IV TITR PRN ; Protocol; 0.2 MCG/KG/HR PRN Reason: Agitation Naproxen (Anaprox Ds) 550 mg PO BID PRN PRN Reason: Pain, Mild (1-3) Ondansetron HCl (Zofran Inj) 4 mg IVP Q8 PRN PRN Reason: Nausea/Vomiting Last Admin: 04/24/18 13:09 Dose: 4 mg Vancomycin HCl (Vancocin (Oral Or Rectal Use)) 500 mg PO QID [facility] PRN Reason: Protocol Last Admin: 04/24/18 22:50 Dose: 500 mg - Labs Labs: 04/25/18 04:19 04/25/18 04:19
--- NOTE | 2018-04-25 06:18 | PCM.RRT ---
<Orly Wills E - Last Filed: 04/25/18 09:43> [employer] Nurses Assessment - Situation Date: 04/24/18 Time [employer] was called: 03:58 [employer] Responder Arrival Time:: 03:58 [employer] Location:: Med/Surg Room Number: 671a [employer] Reason for Call: Tachycardia [employer] Called By: RN - IV IV Inserted during [employer]ANG[employer]?: Yes New IV Insertion Tolerance: Good - Respiratory [employer] Delivery Method: Intubated Oxygen Flow Rate: 2 Received Nebulizer Treatments: No Was the Patient Ventilated with Bag/Mask 100% O2?: Yes Secretions Suctioned?: Yes Was the Patient Intubated?: Yes Was the Patient Placed on a Ventilator?: Yes - Ventilator Settings Mode: PRVC Ventilator Respiratory Rate Settin Ventilator Tidal Volume Settin PEEP/CPAP (cm H2O): 5 SAO2 %: 97 FIO2 (% Oxygen): 100 - Medication Medications Administered During [employer]: none,ivf 500cc bolus - Diagnostic Test Ordered EKG: Yes (sinus tachy) Chest X-Ray: No CT Scan: No CPR started during [employer]?: No - Vital Signs Vital Signs: Rapid Response Vital Sign Blood Pressure 116/83 Pulse Rate 106 Respiratory Rate 20 Temperature 97.3 F Oxygen Saturation 96 - [place] Coma Scale Coma Scale Eye Opening: Spontaneous Coma Scale Motor: Obeys Commands Movement Coma Scale Verbal: Oriented Coma Scale Total: 15 - Sepsis Screen Part 1 Sepsis Screen Part 1: Hypotensive, Skin Mottled - Time [employer] Ended Time [employer] Ended: 05:30 - Vital Signs at end of [employer] Vital Signs at end of [employer]: Rapid Response End Vital Sign, right Before was transferred to the ICU Blood Pressure 118/82 Pulse Rate 106 Respiratory Rate 20 Temperature 97.2 F O2 Sat by Pulse Oximetry 98% on Intubation - Recommendations Notifications: Attending Physician I.Reason for [employer] - A) Acute Change in Patient: (Select all that apply): Acute change in mental status, Acute change in SBP below Subjective: Patient is 67 year old female admitted for colitis, who had a [employer] at 3:58am for shallow breathing and hypotension. Patient was given 500cc bolus X2 through her tiffany-cath, EJ line was placed, labs were drawn, patient was placed ib BiPAP. Patient was very agitated and attempted to pull off BiPAP, therefore, decision was made to intubate patient and transfer to the ICU - Neurological Status (Select all that apply): Responsive, Verbal, Follows Commands, Aggressive - Respiratory Oxygen Delivery Method: Intubated Oxygen Flow Rate: 2 - Constitutional Appears: No Acute Distress - Head Head Exam: ATRAUMATIC, NORMAL INSPECTION - Eyes Eye Exam: EOMI - Respiratory Exam Respiratory Exam: Accessory Muscle Use, Respiratory Distress. absent: Chest Wall Tenderness, Decreased Breath Sounds, Clear to Ausculation Bilateral, Prolonged Expiratory Phase, Rales, Rhonchi, Wheezes - Cardiovascular Exam Cardiovascular Exam: Tachycardia, REGULAR RHYTHM, +S1, +S2 - GI/Abdominal Exam GI & Abdominal Exam: Soft, Normal Bowel Sounds. absent: Firm, Guarding, Rigid, Tenderness, Hyperactive Bowel Sounds - Neurological Exam Neurological Exam: Alert, Awake. absent: Oriented x3 - Extremities Exam Extremities Exam: Normal Inspection Plan - Assessment of Findings&Treatment Plan Intubation Transfer to the ICU 500 cc boluses X2 EJ line placed <Fabrice Marrero P - Last Filed: 04/28/18 07:54> [employer] Nurses Assessment - Vital Signs Vital Signs: Rapid Response Vital Sign Blood Pressure 90/58 Pulse Rate 133 Respiratory Rate 20 Temperature 97.3 F Oxygen Saturation 96 - Vital Signs at end of [employer] Vital Signs at end of [employer]: Rapid Response End Vital Sign Blood Pressure 118/63 Pulse Rate 113 Respiratory Rate 20 Temperature 97.2 F O2 Sat by Pulse Oximetry 98 Attending/Attestation - Attestation I have personally seen and examined this patient.: Yes I have fully participated in the care of the patient.: Yes I have reviewed all pertinent clinical information, including history, physical exam and plan: Yes Notes (Text): See notes on the same day.
--- NOTE | 2018-04-25 06:20 | PCM.PROC ---
Procedures Attestation:: I certify that I have explained the specified Operation(s) or Procedure(s), risks, benefits and reasonable alternatives to the Patient and/or other person responsible. The opportunity was given to ask questions and all questions answered - Intubation Time Out Performed: Yes Sedative: Etomidate Laryngoscope: Silvia (3) Assist Device Used: Other (stylet) ET Tube Size: 7.0 ET Tube Uncuffed: No ET Tube Secured at Depth: 21 ET Tube Secured Locarion: Teeth ET Tube Placement Confirmation: Visualized Passing Through Cords, Breath Sounds Equal Bilaterally, No Breath Sounds Over Epigastrum, Confirmation w/Capnometry Patient Tolerated Procedure: Well Procedure Immediate Complications: None Additional comments: Patient initially tried to intubate with ET size 7.5, would not pass, then used 7.0 which passed. Patient given ativan 2mg post eotmidate during intubation as patient was clenching her teeth.
[2018-04-25] MEDS ORDERED: Lactated Ringer's 1,000 ML IV SCH (07:00)
[2018-04-25] MEDS: Ciprofloxacin 400mg/200ml D5W 400 MG/200 ML BAG IVPB SCH (07:00)
--- NOTE | 2018-04-25 07:03 | CP.PCM.PN ---
<Darlene Gauthier - Last Filed: 04/25/18 08:18> Subjective - Date & Time of Evaluation Date of Evaluation: 04/25/18 Time of Evaluation: 07:00 - Subjective Subjective: PGY5 GI follow-up Pt seen and examined bedside Overnight events noted upgraded to ICU and intubated sedated at the time of evaluation stable in the ICU at this moment ROS: could not be conducted 2/2 AMS Objective - Vital Signs/Intake and Output Vital Signs (last 24 hours): Temp Pulse Resp BP Pulse Ox 98.7 F 115 H 20 108/81 96 04/25/18 06:00 04/24/18 23:55 04/24/18 23:55 04/24/18 23:55 04/24/18 23:55 Intake and Output: 04/25/18 04/25/18 06:59 18:59 Intake Total 3200 Output Total 0 Balance 3200 - Medications Medications: Current Medications Acetaminophen (Tylenol 325mg Tab) 650 mg PO Q8 PRN PRN Reason: fever Aspirin (Aspirin Chewable) 81 mg PO DAILY [facility] Last Admin: 04/24/18 09:29 Dose: 81 mg Enoxaparin Sodium (Lovenox) 40 mg SC DAILY [facility] Last Admin: 04/24/18 09:29 Dose: 40 mg Ergocalciferol (Drisdol 50,000 Intl Units Cap) 1 cap PO QWK [facility] Last Admin: 04/24/18 09:29 Dose: 1 cap Ciprofloxacin (Cipro 400mg/200ml Dsw) 400 mg in 200 mls @ 133 mls/hr IVPB Q12H OSMAR PRN Reason: Protocol Last Admin: 04/24/18 19:09 Dose: 133 mls/hr Dextrose/Sodium Chloride (Dextrose 5%/0.45% Ns 1000 Ml) 1,000 mls @ 50 mls/hr IV .Q20H [facility] Last Admin: 04/24/18 20:01 Dose: 50 mls/hr Dexmedetomidine HCl 200 mcg/ (Sodium Chloride) 50 mls @ 3.74 mls/hr IV TITR PRN ; Protocol; 0.2 MCG/KG/HR PRN Reason: Agitation Sodium Chloride (Sodium Chloride 0.9%) 1,000 mls @ 1,000 mls/hr IV .Q1H ONE Stop: 04/25/18 07:23 Last Admin: 04/25/18 06:59 Dose: 1,000 mls/hr Meropenem 500 mg/ Sodium (Chloride) 100 mls @ 100 mls/hr IVPB Q8H OSMAR PRN Reason: Protocol Lactated Ringer's (Lactated Ringer's) 1,000 mls @ 200 mls/hr IV .Q5H [facility] Metronidazole (Flagyl) 500 mg in 100 mls @ 100 mls/hr IVPB Q8H OSMAR PRN Reason: Protocol Ondansetron HCl (Zofran Inj) 4 mg IVP Q8 PRN PRN Reason: Nausea/Vomiting Last Admin: 04/24/18 13:09 Dose: 4 mg Vancomycin HCl (Vancocin (Oral Or Rectal Use)) 500 mg PO QID [facility] PRN Reason: Protocol Last Admin: 04/24/18 22:50 Dose: 500 mg - Labs Labs: 04/25/18 04:19 04/25/18 04:19 - Constitutional Appears: No Acute Distress - Head Exam Head Exam: ATRAUMATIC, NORMOCEPHALIC - Eye Exam Eye Exam: Normal appearance - ENT Exam ENT Exam: Mucous Membranes Moist, Normal Exam - Neck Exam Neck Exam: Normal Inspection - Respiratory Exam Respiratory Exam: Clear to Ausculation Bilateral, NORMAL BREATHING PATTERN. absent: Rales, Rhonchi, Wheezes, Respiratory Distress - Cardiovascular Exam Cardiovascular Exam: REGULAR RHYTHM, +S1, +S2 - GI/Abdominal Exam GI & Abdominal Exam: Distended, Guarding, Soft, Hypoactive Bowel Sounds. absent : Firm, Hernia, Mass, Organomegaly, Rebound - Extremities Exam Extremities Exam: absent: Joint Swelling, Pedal Edema - Neurological Exam Neurological Exam: Altered - Psychiatric Exam Additional comments: could not assess 2/2 AMS - Skin Skin Exam: Dry, Intact, Normal Color, Warm Assessment and Plan - Assessment and Plan (Free Text) Assessment: Lois Garrison is a 67 y/o female who presents to ED c/o abdominal pain associated with nausea vomiting and diarrhea for the past 2 weeks. Pancolitis, etiology unknown, suspect c. diff, r/o fulminant colitis, toxic megacolon, perforation intractable nausea and vomiting diarrhea 2/2 above Sepsis recent lumbar sx hx of rectal cancer, as per pt diagnosed 11 years prior only radiation, denies surgery; colonoscopy 1 year prior Plan: -merrem added by primary team, agree with broadening coverage, continue IV flagyl -continue vanco 500mg QID -stool c.diff and culture pending -keep NPO -continue IV fluids -spoke with ICU team, will get a abd flat plate -recommend surgical eval -repeat CT pending will d/w Dr. Bergman <Tom Bergman - Last Filed: 04/25/18 08:37> Objective - Vital Signs/Intake and Output Vital Signs (last 24 hours): Temp Pulse Resp BP Pulse Ox 98.7 F 113 H 20 108/90 96 04/25/18 06:00 04/25/18 07:10 04/25/18 07:10 04/25/18 06:48 04/25/18 07:10 Intake and Output: 04/25/18 04/25/18 06:59 18:59 Intake Total 3200 1200 Output Total 0 Balance 3200 1200 - Medications Medications: Current Medications Acetaminophen (Tylenol 325mg Tab) 650 mg PO Q8 PRN PRN Reason: fever Aspirin (Aspirin Chewable) 81 mg PO DAILY [facility] Last Admin: 04/24/18 09:29 Dose: 81 mg Enoxaparin Sodium (Lovenox) 40 mg SC DAILY [facility] Last Admin: 04/24/18 09:29 Dose: 40 mg Ergocalciferol (Drisdol 50,000 Intl Units Cap) 1 cap PO QWK [facility] Last Admin: 04/24/18 09:29 Dose: 1 cap Dexmedetomidine HCl 200 mcg/ (Sodium Chloride) 50 mls @ 3.74 mls/hr IV TITR PRN ; Protocol; 0.2 MCG/KG/HR PRN Reason: Agitation Last Admin: 04/25/18 07:40 Dose: 0.2 mcg/kg/hr, 3.74 mls/hr Meropenem 500 mg/ Sodium (Chloride) 100 mls @ 100 mls/hr IVPB Q8H OSMAR PRN Reason: Protocol Last Admin: 04/25/18 07:42 Dose: 100 mls/hr Metronidazole (Flagyl) 500 mg in 100 mls @ 100 mls/hr IVPB Q8H OSMAR PRN Reason: Protocol Sodium Bicarbonate 100 meq/ (Sodium Chloride) 1,100 mls @ 75 mls/hr IV .[id number] [facility] Last Admin: 04/25/18 07:57 Dose: 75 mls/hr Lactated Ringer's (Lactated Ringer's) 1,000 mls @ 125 mls/hr IV .Q8H [facility] Ondansetron HCl (Zofran Inj) 4 mg IVP Q8 PRN PRN Reason: Nausea/Vomiting Last Admin: 04/24/18 13:09 Dose: 4 mg Vancomycin HCl (Vancocin (Oral Or Rectal Use)) 500 mg PO QID [facility] PRN Reason: Protocol Last Admin: 04/24/18 22:50 Dose: 500 mg - Labs Labs: 04/25/18 04:19 04/25/18 04:19 Attending/Attestation - Attestation I have personally seen and examined this patient.: Yes I have fully participated in the care of the patient.: Yes I have reviewed all pertinent clinical information, including history, physical exam and plan: Yes Notes (Text): 04/25/18 08:33 I have seen and examined patient with GI fellow. Events from overnight noted, patient with respiratory distress s/p intubation, currently seen in intensive care unit. She is currently sedated, as per nursing staff no bowel movements since being moved to intensive care. Receiving oral medication via OGT. Review of vitals shows elevated BP, tachycardia. Abdominal pain Colitis - unclear etiology though suspect infectious given clinical presentation History of rectal cancer Sepsis Respiratory distress s/p intubation Acute renal insufficiency - NPO - Continue with antibiotic therapy, broaden coverage - Obtain abdominal imaging to rule out toxic megacolon - Suggest surgical evaluation - Continue with IVF hydration, monitor creatinine - Obtain blood, stool, urine cultures - Will continue to monitor patient clinical course
[2018-04-25] MEDS ORDERED: Sodium Bicarbonate (8.4%) 50 Meq Syringe ONE ×4 (07:30→17:31)
[2018-04-25] MEDS: Meropenem 500 MG in Sodium Chloride 0.9% 100 ML IVPB SCH ×3 (07:42→22:30)
[2018-04-25 07:51] LABS: LYMPHOCYTE 9 % (20-40); MONOCYTE 2 % (0-10); NEUTROPHIL 75 % (50-75); TOTAL CELLS COUNTED 100
[2018-04-25 07:52] LABS: MYELOCYTE 2 % (0-0)
[2018-04-25 07:55] LABS: ANISOCYTOSIS SLIGHT; BANDS 12 % (0-2); PLATELET ESTIMATE NORMAL (NORMAL)
[2018-04-25] MEDS ORDERED: Sodium Bicarbonate (8.4%) 50 Meq Syringe IVP ONE ×5 (07:58→22:11)
[2018-04-25] MEDS: Lactated Ringer's 1,000 ML IV SCH ×4 (08:36→23:59)
[2018-04-25] MEDS: metroNIDAZOLE IV 500 mg/100 ml 500 MG/100 ML BAG IVPB SCH ×3 (08:38→23:57)
--- NOTE | 2018-04-25 08:49 | CP.PCM.CON ---
History of Present Illness - History of Present Illness History of Present Illness: General surgery consult note for Dr. Garcia Consulted for possible fulminant colitis, possible perforation Mrs. Garrison is a 67 yr old female PMH HTN, Lower back pain, and Colon Cancer who presented to [facility] on 04/23 complaining of 2 weeks of nausea vomiting and diarrhea. She recently had a Lumbar fusion March 2018 at [facility] and had been on IV antibiotics for a postoperative skin infection. Yesterday the patient had an DIRECTOR [employer] called and it was determined that she had had a vagal episode. This morning at approximately 0400 an additional DIRECT[employer] was called d/t hypotension lethargy and respiratory distress. Lowest recorded BP 74/52. Patient was intubated, sedated on precedex and transferred to the ICU. Her abg at that time revealed a pH of 7.03 bicarb of 6 and a lactate of 12.5. Bicarb was given and repeat abg at approximately 0500 revealed pH of 7.12 bicarb 9.2 and lactate 8.5. Additionally her WBC has increased from 27.7 to 70 this morning. PMH: HTN, chronic low back pain, colon cancer PSH: laparoscopic cholecystectomy (04/10/2013), vascular catheter irrigation () Allergies: Morphine Social: nonsmoker Review of Systems - Review of Systems Systems not reviewed;Unavailable: Acuity of Condition, Intubated Past Patient History - Past Medical History & Family History Past Medical History?: Yes - Past Social History Smoking Status: Never Smoked - CARDIAC Hx Cardiac Disorders: No - PULMONARY Hx Respiratory Disorders: No - NEUROLOGICAL Hx Neurological Disorder: Yes Hx Alzheimer's Disease: Yes (slight as per pt. daughter) - HEENT Hx HEENT Problems: Yes Other/Comment: wear eyeglasses - RENAL Hx Chronic Kidney Disease: No - ENDOCRINE/METABOLIC Hx Endocrine Disorders: No - HEMATOLOGICAL/ONCOLOGICAL Hx Blood Disorders: No - INTEGUMENTARY Hx Dermatological Problems: No - MUSCULOSKELETAL/RHEUMATOLOGICAL Hx Arthritis: Yes Hx Back Pain: Yes Hx Falls: Yes Hx Unsteady Gait: Yes Other/Comment: Ambulates with a cane, pt. uses walker - GASTROINTESTINAL Hx Gastrointestinal Disorders: Yes Hx Colitis: Yes Hx Diarrhea: Yes Hx Gastritis: Yes Other/Comment: Colon CA - GENITOURINARY/GYNECOLOGICAL Hx Genitourinary Disorders: No - PSYCHIATRIC Hx Psychophysiologic Disorder: No Hx Substance Use: No - SURGICAL HISTORY Hx Surgeries: Yes Hx Cholecystectomy: Yes Other/Comment: back surgery ,March 2018,in [facility] - ANESTHESIA Hx Anesthesia: No Hx Anesthesia Reactions: No Hx Malignant Hyperthermia: No Has any member of the family had a problem w/ anesthesia?: No Meds Allergies/Adverse Reactions: Allergies Allergy/AdvReac Type Severity Reaction Status Date / Time morphine Allergy Verified 04/23/18 08:25 - Medications Medications: Current Medications Acetaminophen (Tylenol 325mg Tab) 650 mg PO Q8 PRN PRN Reason: fever Aspirin (Aspirin Chewable) 81 mg PO DAILY [facility] Last Admin: 04/24/18 09:29 Dose: 81 mg Enoxaparin Sodium (Lovenox) 40 mg SC DAILY [facility] Last Admin: 04/24/18 09:29 Dose: 40 mg Ergocalciferol (Drisdol 50,000 Intl Units Cap) 1 cap PO QWK [facility] Last Admin: 04/24/18 09:29 Dose: 1 cap Dexmedetomidine HCl 200 mcg/ (Sodium Chloride) 50 mls @ 3.74 mls/hr IV TITR PRN ; Protocol; 0.2 MCG/KG/HR PRN Reason: Agitation Last Admin: 04/25/18 07:40 Dose: 0.2 mcg/kg/hr, 3.74 mls/hr Meropenem 500 mg/ Sodium (Chloride) 100 mls @ 100 mls/hr IVPB Q8H [facility] PRN Reason: Protocol Last Admin: 04/25/18 07:42 Dose: 100 mls/hr Metronidazole (Flagyl) 500 mg in 100 mls @ 100 mls/hr IVPB Q8H [facility] PRN Reason: Protocol Last Admin: 04/25/18 08:38 Dose: 100 mls/hr Sodium Bicarbonate 100 meq/ (Sodium Chloride) 1,100 mls @ 75 mls/hr IV .[id number] [facility] Last Admin: 04/25/18 07:57 Dose: 75 mls/hr Lactated Ringer's (Lactated Ringer's) 1,000 mls @ 125 mls/hr IV .Q8H [facility] Last Admin: 04/25/18 08:36 Dose: 125 mls/hr Ondansetron HCl (Zofran Inj) 4 mg IVP Q8 PRN PRN Reason: Nausea/Vomiting Last Admin: 04/24/18 13:09 Dose: 4 mg Vancomycin HCl (Vancocin (Oral Or Rectal Use)) 500 mg PO QID OSMAR PRN Reason: Protocol Last Admin: 04/24/18 22:50 Dose: 500 mg Physical Exam - Constitutional Appears: Toxic Additional comments: Patient is intubated and sedated - Head Exam Head Exam: ATRAUMATIC, NORMOCEPHALIC - ENT Exam ENT Exam: Mucous Membranes Dry - Respiratory Exam Respiratory Exam: Clear to Auscultation Bilateral Additional comments: patient is intubated - Cardiovascular Exam Cardiovascular Exam: Tachycardia - GI/Abdominal Exam GI & Abdominal Exam: Normal Bowel Sounds, Soft, Tenderness. absent: Distended, Guarding, Rebound, Rigid Additional comments: Diffuse tenderness and grimacing with palpation - Neurological Exam Additional comments: patient is intubated and sedated on precedex - Skin Skin Exam: Dry, Intact, Normal Color, Warm Results - Vital Signs Recent Vital Signs: Last Vital Signs Temp 98.7 F 04/25/18 06:00 Pulse 113 H 04/25/18 07:10 Resp 20 04/25/18 07:10 BP 108/90 04/25/18 06:48 Pulse Ox 96 04/25/18 07:10 - Labs Result Diagrams: 04/25/18 18:12 04/25/18 18:12 Labs: Laboratory Results - last 24 hr 04/24/18 04/24/18 04/25/18 07:03 22:27 04:13 WBC RBC Hgb Hct MCV MCH MCHC RDW Plt Count MPV Neut % (Auto) Lymph % (Auto) Mcleod % (Auto) Eos % (Auto) Baso % (Auto) Neut # (Auto) Lymph # (Auto) Mcleod # (Auto) Eos # (Auto) Baso # (Auto) Neutrophils % (Manual) 92 H Band Neutrophils % 4 H Lymphocytes % (Manual) 3 L Monocytes % (Manual) 1 Myelocytes % Platelet Estimate Normal Large Platelets Present Hypochromasia (manual) Slight Poikilocytosis (manual Slight Anisocytosis (manual) Slight D-Dimer, Quantitative Puncture Site Femoral by pCO2 23 L pO2 56 L HCO3 6.0 L* ABG pH 7.03 L* ABG Total CO2 6.8 L ABG O2 Saturation 82.9 L ABG Base Excess -23.3 L Brandon Test Pos ABG Potassium 4.3 A-a O2 Difference 628.0 Respiratory Index 11.2 Sodium 130.0 L Chloride 97.0 L Glucose 373 H Lactate 12.9 H* Vent Mode Mechanical Rate FiO2 100.0 Tidal Volume PEEP Inspiratory BiPAP 12 Expiratory BiPAP 5 Crit Value Called To Crit Value Called By Devin Crit Value Read Back Y Blood Gas Notified Time 416 Potassium Carbon Dioxide Anion Gap BUN Creatinine Est GFR ( Amer) Est GFR (Non-Af Amer) Random Glucose Calcium Phosphorus Magnesium Total Bilirubin AST ALT Alkaline Phosphatase Troponin I Total Protein Albumin Globulin Albumin/Globulin Ratio Arterial Blood Potassium 4.3 Influenza Typ A,B (EIA) Negative for flu a/b Blood Type Antibody Screen 04/25/18 04/25/18 04/25/18 04:19 04:19 05:06 WBC 70.2 H* D RBC 5.55 H Hgb 13.9 D Hct 46.0 MCV 82.8 D MCH 25.1 L MCHC 30.3 L RDW 16.2 H Plt Count 347 MPV 9.3 Neut % (Auto) 90.9 H Lymph % (Auto) 6.1 L Mcleod % (Auto) 2.4 Eos % (Auto) 0.4 Baso % (Auto) 0.2 Neut # (Auto) 63.8 H Lymph # (Auto) 4.2 Mcleod # (Auto) 1.7 H Eos # (Auto) 0.3 Baso # (Auto) 0.1 Neutrophils % (Manual) 75 Band Neutrophils % 12 H* Lymphocytes % (Manual) 9 L Monocytes % (Manual) 2 Myelocytes % 2 H Platelet Estimate Normal Large Platelets Hypochromasia (manual) Poikilocytosis (manual Anisocytosis (manual) Slight D-Dimer, Quantitative Puncture Site R fem pCO2 23 L pO2 226 H HCO3 9.2 L* ABG pH 7.12 L* ABG Total CO2 8.2 L ABG O2 Saturation 100.7 H ABG Base Excess -20.2 L Brandon Test Na ABG Potassium 3.1 L A-a O2 Difference 458.0 Respiratory Index 2.0 Sodium 136 134.0 Chloride 101 104.0 Glucose 291 H Lactate 8.5 H* Vent Mode Prvc Mechanical Rate 20 FiO2 100.0 Tidal Volume 400 PEEP 5 Inspiratory BiPAP Expiratory BiPAP Crit Value Called To Crit Value Called By Joes R pie baker Crit Value Read Back Y Blood Gas Notified Time 510 Potassium 4.2 Carbon Dioxide 8 L* D Anion Gap 31 H BUN 23 H Creatinine 2.3 H Est GFR ( Amer) 26 Est GFR (Non-Af Amer) 21 Random Glucose 335 H Calcium 6.7 L Phosphorus 5.7 H Magnesium 2.2 Total Bilirubin 0.5 AST 50 H D ALT 18 Alkaline Phosphatase 160 H Troponin I 0.0370 Total Protein 5.8 L Albumin 2.7 L Globulin 3.1 Albumin/Globulin Ratio 0.9 L Arterial Blood Potassium 3.1 L Influenza Typ A,B (EIA) Blood Type Antibody Screen 04/25/18 04/25/18 05:30 05:35 WBC RBC Hgb Hct MCV MCH MCHC RDW Plt Count MPV Neut % (Auto) Lymph % (Auto) Mcleod % (Auto) Eos % (Auto) Baso % (Auto) Neut # (Auto) Lymph # (Auto) Mcleod # (Auto) Eos # (Auto) Baso # (Auto) Neutrophils % (Manual) Band Neutrophils % Lymphocytes % (Manual) Monocytes % (Manual) Myelocytes % Platelet Estimate Large Platelets Hypochromasia (manual) Poikilocytosis (manual Anisocytosis (manual) D-Dimer, Quantitative 5364 H Puncture Site pCO2 pO2 HCO3 ABG pH ABG Total CO2 ABG O2 Saturation ABG Base Excess Brandon Test ABG Potassium A-a O2 Difference Respiratory Index Sodium Chloride Glucose Lactate Vent Mode Mechanical Rate FiO2 Tidal Volume PEEP Inspiratory BiPAP Expiratory BiPAP Crit Value Called To Crit Value Called By Crit Value Read Back Blood Gas Notified Time Potassium Carbon Dioxide Anion Gap BUN Creatinine Est GFR ( Amer) Est GFR (Non-Af Amer) Random Glucose Calcium Phosphorus Magnesium Total Bilirubin AST ALT Alkaline Phosphatase Troponin I Total Protein Albumin Globulin Albumin/Globulin Ratio Arterial Blood Potassium Influenza Typ A,B (EIA) Blood Type O NEGATIVE Antibody Screen Negative Assessment & Plan - Assessment and Plan (Free Text) Assessment: 67 yr old female with pancolitis likely c difficile Plan: - upright XR shows no signs of free air or perforation - stat PT, PTT and INR ordered - management of acid base status and electrolyte abnormalities as per ICU team - Dusty morales - called grandson Robb Anderson to obtain consent for surgery - Patient acutely worsened in ICU; refractory to medical management - plan emergent colectomy, discussed risks and benefits with family, all questions answered, family elected to proceed with surgery - discussed plan with Dr. Radha Jewell, PGY 1 - Date & Time Date: 04/25/18 Time: 07:40
[2018-04-25] MEDS ORDERED: Iohexol 240 (50 ml) PO ONE (09:15)
[2018-04-25] MEDS ORDERED: Albumin Human 25% (12.5 gm/50 ml) IV ONE (10:00)
[2018-04-25] MEDS: Vancomycin 125 MG/5 ML SOLN (ORAL/RECTAL) PO SCH ×4 (10:18→22:00)
--- NOTE | 2018-04-25 10:20 | RAD ---
Date of service: 04/25/2018 HISTORY: SOB COMPARISON: 04/23/2018 FINDINGS: LUNGS: No consolidation. Lung volumes now more shallow than before. Heart size accentuated with shallow inspiration. Pulmonary vasculature probably top-normal for same reasons. MediPort right sided tip cavoatrial junction as before. PLEURA: No significant pleural effusion identified, no pneumothorax apparent. Probable minimal right costophrenic angle pleural thickening and/or trace fluid. Can be reassessed with follow-up chest x-ray with greater inspiration. CARDIOVASCULAR: Heart size accentuated with shallow inspiration. Pulmonary vasculature probably top-normal for same reasons. OSSEOUS STRUCTURES: Thoraco lumbar spondylosis. Partially visualized is inferior lumbar spine pedicle screws. VISUALIZED UPPER ABDOMEN: Right upper quadrant post cholecystectomy clips. OTHER FINDINGS: None. IMPRESSION: Current chest x-ray more shallow than before. Probable trace right costophrenic angle pleural thickening and/or trace fluid here -as discussed above. Pulmonary vasculature probably top-normal.
--- NOTE | 2018-04-25 10:27 | RAD ---
Date of service: 04/25/2018 HISTORY: s/p intubation COMPARISON: 04/25/2018 FINDINGS: LUNGS: No consolidation appreciated. Study rotated towards the right. Endotracheal tube at and/or approximating the entry to the right mainstem bronchus. Recommend retraction 1-1/2 cm. PLEURA: No significant pleural effusion identified, no pneumothorax apparent. CARDIOVASCULAR: Top-normal heart size. Pulmonary vasculature minimally increased-accentuated in large part as well due to shallow lung inspiration. Right-sided MediPort tip in right atrium. OSSEOUS STRUCTURES: Thoracic spondylosis. Bilateral shoulder arthrosis. VISUALIZED UPPER ABDOMEN: An NG tube is also inserted is a expected to be progressing into the and/or along the stomach and/or coursing on the inferior edge of this image. Past the GE junction OTHER FINDINGS: None. IMPRESSION: Interval endotracheal tube insertion - tip at and/or bordering the orifice to the right mainstem bronchus. This was called up to the ICU floor and given to nurse, Norma Trotter at 10:23 a.m. on 04/25/2018. The feedback from Norma is that this has already been retracted. No post retraction chest x-ray available. NG tube insertion as above. Lung volumes. Minimally increased pulmonary vasculature also likely present.
[2018-04-25 10:31] LABS: ARTERIAL BLOOD GAS HCO3 16.1 mmol/L (21-28); ARTERIAL BLOOD GAS O2 SAT 98.9 % (95-98); ARTERIAL BLOOD GAS PCO2 21 mm/Hg (35-45); ARTERIAL BLOOD GAS PH 7.36 (7.35-7.45); ARTERIAL BLOOD GAS PO2 91 mm/Hg (80-100); ARTERIAL BLOOD GAS TCO2 12.5 mmol/L (22-28)
--- NOTE | 2018-04-25 10:51 | RAD ---
Date of service: 04/25/2018 HISTORY: rule out free air COMPARISON: 04/25/2018 at 0546 hours FINDINGS: LUNGS: Lung volumes still low. Interval endotracheal tube retraction tip approximately 3.5 cm from the aye. PLEURA: There is trace fluid in the right minor fissure. No more significant appearing pleural effusion present. No pneumothorax apparent. CARDIOVASCULAR: Probable top-normal heart size pulmonary vasculature appears minimally increased. The right sided MediPort tip in the right atrium is similar. OSSEOUS STRUCTURES: Minimal thoraco lumbar spondylosis. VISUALIZED UPPER ABDOMEN: Faint right upper quadrant cholecystectomy clips suggested. The NG tube tip is visually included now over the gastric greater curvature upper body location OTHER FINDINGS: None. IMPRESSION: Interval retraction endotracheal tube its position is satisfactory. NG tube tip satisfactory Interval trace fluid in the minor fissure Pulmonary vasculature minimally increased.
[2018-04-25 10:53] LABS: BASO # 0.5 K/uL (0.0-0.2); BASO % 0.7 % (0.0-2.0); EOS # 0.3 K/uL (0.0-0.7); EOS % 0.4 % (0.0-4.0); HEMOGLOBIN 13.3 g/dL (11.0-16.0); LYMPH # 3.5 K/uL (1.0-4.3); LYMPH % 4.8 % (20.0-40.0); MEAN CORPUSCULAR HGB CONC 31.2 g/dL (33.0-37.0); MEAN PLATELET VOLUME 9.5 fL (7.2-11.7); MONO # 1.2 K/uL (0.0-0.8); MONO % 1.7 % (0.0-10.0); NEUT # 67.1 K/uL (1.8-7.0); NEUT % 92.4 % (50.0-75.0); NRBC % 0.1 % (0.0-2.0); PLATELET COUNT 294 K/uL (130-400); RBC 5.33 Mil/uL (3.80-5.20); RED CELL DISTRIBUTION WIDTH 16.3 % (11.5-14.5)
[2018-04-25 10:57] LABS: WHITE BLOOD COUNT 72.6 K/uL (4.8-10.8)
[2018-04-25 11:03] LABS: INR 1.4
--- NOTE | 2018-04-25 11:03 | RAD ---
Date of service: 04/25/2018 HISTORY: r/o megacolon COMPARISON: And pelvis CT 04/23/2018. FINDINGS: BOWEL: Gas is mildly distending the stomach with gas in both small large-bowel segments. Pattern suggests potential mild ileus developing. Surgical clips are identified in the right upper quadrant abdomen. No prominent free intra peritoneal gas identified. BONES: Prior L4-L5 laminectomies with post spinal fusion from L4-S1 bilaterally. OTHER FINDINGS: None. IMPRESSION: Potential developing ileus pattern. Bowel obstruction unlikely. Continued clinical and radiographic monitor advised.
[2018-04-25 11:05] LABS: PROTHROMBIN TIME 15.2 SECONDS (9.7-12.2)
--- NOTE | 2018-04-25 11:05 | CP.CCUPN ---
<Chance Vazquez - Last Filed: 04/25/18 13:00> CCU Subjective - Physician Review Subjective (Free Text): Chance Vazquez DO PGY-1, ICU progress note for Dr. Dodge Pt was seen and examined at bedside. ROS is unobtainable due to intubation and sedation. Surgery team evaluated the pt at bedside and will bring the pt to the OR. Pt noted to be hypotensive with NIBP systolic in the 60s and NIBP diastolic in the 40s (MAP in the 40s). Decision was made to place on Levophed gtt for septic shock. Right femoral TLC successfully placed by digital field service technician. After a-line placement, pt's SBP is noted to be in 80s, with MAP of 60. Phenylephrine added to maintain MAP>65 mmHg. A 12-point ROS is unobtainable due to intubation and sedation. CCU Objective - Vital Signs / Intake & Output Vital Signs (Last 4 hours): Vital Signs Temp Pulse Resp BP Pulse Ox 04/25/18 10:42 101/69 04/25/18 10:41 118 H 30 H 80 L 04/25/18 10:40 118 H 32 H 82 L 04/25/18 10:37 117 H 26 H 96 04/25/18 09:37 110 H 32 H 67/58 L 98 04/25/18 08:00 99.1 F 125 H 26 H 125/100 H 96 04/25/18 07:10 113 H 20 96 Intake and Output (Last 8hrs): Intake & Output 04/24/18 04/25/18 04/25/18 22:59 06:59 14:59 Intake Total 3200 2131.2 Output Total 0 0 Balance 3200 2131.2 Weight 75.115 kg Intake: Intake, IV Amount 2900 2131.2 Right Antecubital 900 Right Distal Port Femoral 37.5 Right Medial Port Femoral 43.7 Right Proximal Port 225 Femoral Right Subclavian 2000 1375 Rt SC Y-port 450 Oral 300 Output: Urine 0 0 Urethral (Frazier) 0 0 Other: # Voids Urine, Voided 2 - Physical Exam Head: Positive for: Normocephalic Pupils: Positive for: PERRL Extroacular Muscles: Positive for: EOMI Conjunctiva: Positive for: Normal Mouth: Positive for: Moist Mucous Membranes, Other ((+) ETT, (+) NGT) Respiratory/Chest: Positive for: Clear to Auscultation Cardiovascular: Positive for: Tachycardic Abdomen: Negative for: Normal Bowel Sounds (decreased bowel sounds in all four quadrants), Peritoneal Signs ((+) firmness, non-rigid) Upper Extremity: Positive for: Normal Inspection, NORMAL PULSES Lower Extremity: Negative for: NORMAL PULSES (bilateral DPs not obtainable by dopplars prior to femoral TLC placement, (+) popliteal and femoral pulses on palpation) Neurological: Positive for: Other (intubated and sedated). Negative for: GCS=15 Skin: Positive for: Warm, Dry Psychiatric: Positive for: Other (intubated and sedated) - Medications Active Medications: Active Medications Generic Name Dose Route Start Last Admin Trade Name Freq PRN Reason Stop Dose Admin Acetaminophen 650 mg 04/23/18 17:44 Tylenol 325mg Tab PO Q8 PRN fever Aspirin 81 mg 04/24/18 10:00 04/25/18 10:18 Aspirin Chewable PO Not Given DAILY OSMAR Enoxaparin Sodium 40 mg 04/23/18 17:45 04/24/18 09:29 Lovenox SC 40 mg DAILY OSMAR Administration Ergocalciferol 1 cap 04/24/18 10:00 04/24/18 09:29 Drisdol 50,000 Intl Units Cap PO 1 cap QWK OSMAR Administration Hydromorphone HCl 0.5 mg 04/25/18 10:26 Dilaudid IVP 04/25/18 10:27 STAT STA Dexmedetomidine HCl 200 mcg/ 50 mls @ 3.74 mls/hr 04/25/18 06:07 04/25/18 07: 40 Sodium Chloride IV 0.2 mcg/kg/hr TITR PRN 3.74 mls/hr Agitation Administration Protocol 0.2 MCG/KG/HR Meropenem 500 mg/ Sodium 100 mls @ 100 mls/hr 04/25/18 06:30 04/25/18 07:42 Chloride IVPB 100 mls/hr Q8H OSMAR Administration Protocol Metronidazole 500 mg in 100 mls @ 100 mls/hr 04/25/18 07:30 04/25/18 08:38 Flagyl IVPB 100 mls/hr Q8H OSMAR Administration Protocol Sodium Bicarbonate 100 meq/ 1,100 mls @ 75 mls/hr 04/25/18 07:45 04/25/18 07: 57 Sodium Chloride IV 75 mls/hr .[id number] OSMAR Administration Lactated Ringer's 1,000 mls @ 125 mls/hr 04/25/18 07:58 04/25/18 08:36 Lactated Ringer's IV 125 mls/hr .Q8H OSMAR Administration Norepinephrine Bitartrate 8 mg 258 mls @ 7.74 mls/hr 04/25/18 09:25 04/25/18 09:37 / Dextrose IV 4 mcg/min .Q24H PRN 7.74 mls/hr TITRATE PER MD ORDER Administration Protocol 4 MCG/MIN Ondansetron HCl 4 mg 04/23/18 17:42 04/24/18 13:09 Zofran Inj IVP 4 mg Q8 PRN Administration Nausea/Vomiting Vancomycin HCl 500 mg 04/24/18 14:00 04/25/18 10:18 Vancocin (Oral Or Rectal Use) PO Not Given QID [facility] Protocol - Patient Studies Lab Studies: Microbiology Studies 04/23/18 09:30 Blood Culture - Preliminary Blood NO GROWTH AFTER 48 HOURS 04/23/18 09:00 Blood Culture - Preliminary Blood NO GROWTH AFTER 48 HOURS 04/23/18 10:22 Urine Culture - Final Urine No Growth (<1,000 CFU/ML) Lab Studies 04/25/18 04/25/18 04/25/18 Range/Units 10:42 10:27 05:35 WBC 72.6 H* (4.8-10.8) K/uL RBC 5.33 H (3.80-5.20) Mil/uL Hgb 13.3 (11.0-16.0) g/dL Hct 42.6 (34.0-47.0) % MCV 80.0 L D (81.0-99.0) fL MCH 25.0 L (27.0-31.0) pg MCHC 31.2 L (33.0-37.0) g/dL RDW 16.3 H (11.5-14.5) % Plt Count 294 (130-400) K/uL MPV 9.5 (7.2-11.7) fL Neut % (Auto) 92.4 H (50.0-75.0) % Lymph % (Auto) 4.8 L (20.0-40.0) % Starr % (Auto) 1.7 (0.0-10.0) % Eos % (Auto) 0.4 (0.0-4.0) % Baso % (Auto) 0.7 (0.0-2.0) % Neut # (Auto) 67.1 H (1.8-7.0) K/uL Lymph # (Auto) 3.5 (1.0-4.3) K/uL Starr # (Auto) 1.2 H (0.0-0.8) K/uL Eos # (Auto) 0.3 (0.0-0.7) K/uL Baso # (Auto) 0.5 H (0.0-0.2) K/uL Neutrophils % (Manual) (50-75) % Band Neutrophils % (0-2) % Lymphocytes % (Manual) (20-40) % Monocytes % (Manual) (0-10) % Myelocytes % (0-0) % Platelet Estimate (NORMAL) Anisocytosis (manual) Smear Path Review D-Dimer, Quantitative 5364 H (0-243) ng/mlDDU Puncture Site Lf pCO2 21 L (35-45) mm/Hg pO2 91 (80-100) mm/Hg HCO3 16.1 L (21-28) mmol/L ABG pH 7.36 (7.35-7.45) ABG Total CO2 12.5 L (22-28) mmol/L ABG O2 Saturation 98.9 H (95-98) % ABG Base Excess -11.3 L (-2.0-3.0) mmol/L Brandon Test Na ABG Potassium 3.7 (3.6-5.2) mmol/L A-a O2 Difference 311.0 mm/Hg Respiratory Index 3.4 Sodium 135.0 (132-148) mmol/l Chloride 105.0 (98-107) mmol/L Glucose 164 H (65-105) mg/dl Lactate 6.1 H* (0.7-2.1) mmol/L Vent Mode Prvc Mechanical Rate 25 FiO2 60.0 % Tidal Volume 500 PEEP 5 Inspiratory BiPAP Expiratory BiPAP Crit Value Called To Dr antoine dodge Crit Value Called By Nicole turner drill presser Crit Value Read Back Y Blood Gas Notified Time 1030 Potassium (3.6-5.2) mmol/L Carbon Dioxide (22-30) mmol/L Anion Gap (10-20) BUN (7-17) mg/dL Creatinine (0.7-1.2) mg/dL Est GFR ( Amer) Est GFR (Non-Af Amer) POC Glucose (mg/dL) (65-110) mg/dL Random Glucose (65-105) mg/dL Calcium (8.6-10.4) mg/dl Phosphorus (2.5-4.5) mg/dL Magnesium (1.6-2.3) mg/dL Total Bilirubin (0.2-1.3) mg/dL AST (14-36) U/L ALT (9-52) U/L Alkaline Phosphatase (38-126) U/L Troponin I (0.00-0.120) ng/mL Total Protein (6.3-8.3) g/dL Albumin (3.5-5.0) g/dL Globulin (2.2-3.9) gm/dL Albumin/Globulin Ratio (1.0-2.1) Arterial Blood Potassium 3.7 (3.6-5.2) mmol/L Influenza Typ A,B (EIA) (NEGATIVE) Blood Type Antibody Screen 04/25/18 04/25/18 04/25/18 Range/Units 05:30 05:06 04:19 WBC (4.8-10.8) K/uL RBC (3.80-5.20) Mil/uL Hgb (11.0-16.0) g/dL Hct (34.0-47.0) % MCV (81.0-99.0) fL MCH (27.0-31.0) pg MCHC (33.0-37.0) g/dL RDW (11.5-14.5) % Plt Count (130-400) K/uL MPV (7.2-11.7) fL Neut % (Auto) (50.0-75.0) % Lymph % (Auto) (20.0-40.0) % Starr % (Auto) (0.0-10.0) % Eos % (Auto) (0.0-4.0) % Baso % (Auto) (0.0-2.0) % Neut # (Auto) (1.8-7.0) K/uL Lymph # (Auto) (1.0-4.3) K/uL Starr # (Auto) (0.0-0.8) K/uL Eos # (Auto) (0.0-0.7) K/uL Baso # (Auto) (0.0-0.2) K/uL Neutrophils % (Manual) (50-75) % Band Neutrophils % (0-2) % Lymphocytes % (Manual) (20-40) % Monocytes % (Manual) (0-10) % Myelocytes % (0-0) % Platelet Estimate (NORMAL) Anisocytosis (manual) Smear Path Review D-Dimer, Quantitative (0-243) ng/mlDDU Puncture Site R fem pCO2 23 L (35-45) mm/Hg pO2 226 H (80-100) mm/Hg HCO3 9.2 L* (21-28) mmol/L ABG pH 7.12 L* (7.35-7.45) ABG Total CO2 8.2 L (22-28) mmol/L ABG O2 Saturation 100.7 H (95-98) % ABG Base Excess -20.2 L (-2.0-3.0) mmol/L Brandon Test Na ABG Potassium 3.1 L (3.6-5.2) mmol/L A-a O2 Difference 458.0 mm/Hg Respiratory Index 2.0 Sodium 134.0 136 (132-148) mmol/l Chloride 104.0 101 (98-107) mmol/L Glucose 291 H (65-105) mg/dl Lactate 8.5 H* (0.7-2.1) mmol/L Vent Mode Prvc Mechanical Rate 20 FiO2 100.0 % Tidal Volume 400 PEEP 5 Inspiratory BiPAP Expiratory BiPAP Crit Value Called To Crit Value Called By Jose R drill presser Crit Value Read Back Y Blood Gas Notified Time 510 Potassium 4.2 (3.6-5.2) mmol/L Carbon Dioxide 8 L* D (22-30) mmol/L Anion Gap 31 H (10-20) BUN 23 H (7-17) mg/dL Creatinine 2.3 H (0.7-1.2) mg/dL Est GFR ( Amer) 26 Est GFR (Non-Af Amer) 21 POC Glucose (mg/dL) (65-110) mg/dL Random Glucose 335 H (65-105) mg/dL Calcium 6.7 L (8.6-10.4) mg/dl Phosphorus 5.7 H (2.5-4.5) mg/dL Magnesium 2.2 (1.6-2.3) mg/dL Total Bilirubin 0.5 (0.2-1.3) mg/dL AST 50 H D (14-36) U/L ALT 18 (9-52) U/L Alkaline Phosphatase 160 H (38-126) U/L Troponin I 0.0370 (0.00-0.120) ng/mL Total Protein 5.8 L (6.3-8.3) g/dL Albumin 2.7 L (3.5-5.0) g/dL Globulin 3.1 (2.2-3.9) gm/dL Albumin/Globulin Ratio 0.9 L (1.0-2.1) Arterial Blood Potassium 3.1 L (3.6-5.2) mmol/L Influenza Typ A,B (EIA) (NEGATIVE) Blood Type O NEGATIVE Antibody Screen Negative 04/25/18 04/25/18 04/25/18 Range/Units 04:19 04:13 04:02 WBC 70.2 H* D (4.8-10.8) K/uL RBC 5.55 H (3.80-5.20) Mil/uL Hgb 13.9 D (11.0-16.0) g/dL Hct 46.0 (34.0-47.0) % MCV 82.8 D (81.0-99.0) fL MCH 25.1 L (27.0-31.0) pg MCHC 30.3 L (33.0-37.0) g/dL RDW 16.2 H (11.5-14.5) % Plt Count 347 (130-400) K/uL MPV 9.3 (7.2-11.7) fL Neut % (Auto) 90.9 H (50.0-75.0) % Lymph % (Auto) 6.1 L (20.0-40.0) % Starr % (Auto) 2.4 (0.0-10.0) % Eos % (Auto) 0.4 (0.0-4.0) % Baso % (Auto) 0.2 (0.0-2.0) % Neut # (Auto) 63.8 H (1.8-7.0) K/uL Lymph # (Auto) 4.2 (1.0-4.3) K/uL Starr # (Auto) 1.7 H (0.0-0.8) K/uL Eos # (Auto) 0.3 (0.0-0.7) K/uL Baso # (Auto) 0.1 (0.0-0.2) K/uL Neutrophils % (Manual) 75 (50-75) % Band Neutrophils % 12 H* (0-2) % Lymphocytes % (Manual) 9 L (20-40) % Monocytes % (Manual) 2 (0-10) % Myelocytes % 2 H (0-0) % Platelet Estimate Normal (NORMAL) Anisocytosis (manual) Slight Smear Path Review D-Dimer, Quantitative (0-243) ng/mlDDU Puncture Site Femoral by pCO2 23 L (35-45) mm/Hg pO2 56 L (80-100) mm/Hg HCO3 6.0 L* (21-28) mmol/L ABG pH 7.03 L* (7.35-7.45) ABG Total CO2 6.8 L (22-28) mmol/L ABG O2 Saturation 82.9 L (95-98) % ABG Base Excess -23.3 L (-2.0-3.0) mmol/L Brandon Test Pos ABG Potassium 4.3 (3.6-5.2) mmol/L A-a O2 Difference 628.0 mm/Hg Respiratory Index 11.2 Sodium 130.0 L (132-148) mmol/l Chloride 97.0 L (98-107) mmol/L Glucose 373 H (65-105) mg/dl Lactate 12.9 H* (0.7-2.1) mmol/L Vent Mode Mechanical Rate FiO2 100.0 % Tidal Volume PEEP Inspiratory BiPAP 12 Expiratory BiPAP 5 Crit Value Called To Crit Value Called By Devin Crit Value Read Back Y Blood Gas Notified Time 416 Potassium (3.6-5.2) mmol/L Carbon Dioxide (22-30) mmol/L Anion Gap (10-20) BUN (7-17) mg/dL Creatinine (0.7-1.2) mg/dL Est GFR ( Amer) Est GFR (Non-Af Amer) POC Glucose (mg/dL) 288 H (65-110) mg/dL Random Glucose (65-105) mg/dL Calcium (8.6-10.4) mg/dl Phosphorus (2.5-4.5) mg/dL Magnesium (1.6-2.3) mg/dL Total Bilirubin (0.2-1.3) mg/dL AST (14-36) U/L ALT (9-52) U/L Alkaline Phosphatase (38-126) U/L Troponin I (0.00-0.120) ng/mL Total Protein (6.3-8.3) g/dL Albumin (3.5-5.0) g/dL Globulin (2.2-3.9) gm/dL Albumin/Globulin Ratio (1.0-2.1) Arterial Blood Potassium 4.3 (3.6-5.2) mmol/L Influenza Typ A,B (EIA) (NEGATIVE) Blood Type Antibody Screen 04/24/18 04/24/18 04/24/18 Range/Units 22:27 17:04 13:22 WBC (4.8-10.8) K/uL RBC (3.80-5.20) Mil/uL Hgb (11.0-16.0) g/dL Hct (34.0-47.0) % MCV (81.0-99.0) fL MCH (27.0-31.0) pg MCHC (33.0-37.0) g/dL RDW (11.5-14.5) % Plt Count (130-400) K/uL MPV (7.2-11.7) fL Neut % (Auto) (50.0-75.0) % Lymph % (Auto) (20.0-40.0) % Starr % (Auto) (0.0-10.0) % Eos % (Auto) (0.0-4.0) % Baso % (Auto) (0.0-2.0) % Neut # (Auto) (1.8-7.0) K/uL Lymph # (Auto) (1.0-4.3) K/uL Starr # (Auto) (0.0-0.8) K/uL Eos # (Auto) (0.0-0.7) K/uL Baso # (Auto) (0.0-0.2) K/uL Neutrophils % (Manual) (50-75) % Band Neutrophils % (0-2) % Lymphocytes % (Manual) (20-40) % Monocytes % (Manual) (0-10) % Myelocytes % (0-0) % Platelet Estimate (NORMAL) Anisocytosis (manual) Smear Path Review D-Dimer, Quantitative (0-243) ng/mlDDU Puncture Site pCO2 (35-45) mm/Hg pO2 (80-100) mm/Hg HCO3 (21-28) mmol/L ABG pH (7.35-7.45) ABG Total CO2 (22-28) mmol/L ABG O2 Saturation (95-98) % ABG Base Excess (-2.0-3.0) mmol/L Brandon Test ABG Potassium (3.6-5.2) mmol/L A-a O2 Difference mm/Hg Respiratory Index Sodium (132-148) mmol/l Chloride (98-107) mmol/L Glucose (65-105) mg/dl Lactate (0.7-2.1) mmol/L Vent Mode Mechanical Rate FiO2 % Tidal Volume PEEP Inspiratory BiPAP Expiratory BiPAP Crit Value Called To Crit Value Called By Crit Value Read Back Blood Gas Notified Time Potassium (3.6-5.2) mmol/L Carbon Dioxide (22-30) mmol/L Anion Gap (10-20) BUN (7-17) mg/dL Creatinine (0.7-1.2) mg/dL Est GFR ( Amer) Est GFR (Non-Af Amer) POC Glucose (mg/dL) 225 H 228 H (65-110) mg/dL Random Glucose (65-105) mg/dL Calcium (8.6-10.4) mg/dl Phosphorus (2.5-4.5) mg/dL Magnesium (1.6-2.3) mg/dL Total Bilirubin (0.2-1.3) mg/dL AST (14-36) U/L ALT (9-52) U/L Alkaline Phosphatase (38-126) U/L Troponin I (0.00-0.120) ng/mL Total Protein (6.3-8.3) g/dL Albumin (3.5-5.0) g/dL Globulin (2.2-3.9) gm/dL Albumin/Globulin Ratio (1.0-2.1) Arterial Blood Potassium (3.6-5.2) mmol/L Influenza Typ A,B (EIA) Negative for flu a/b (NEGATIVE) Blood Type Antibody Screen Laboratory Results - last 24 hr 04/24/18 04/24/18 04/24/18 13:22 17:04 22:27 WBC RBC Hgb Hct MCV MCH MCHC RDW Plt Count MPV Neut % (Auto) Lymph % (Auto) Starr % (Auto) Eos % (Auto) Baso % (Auto) Neut # (Auto) Lymph # (Auto) Starr # (Auto) Eos # (Auto) Baso # (Auto) Neutrophils % (Manual) Band Neutrophils % Lymphocytes % (Manual) Monocytes % (Manual) Myelocytes % Platelet Estimate Anisocytosis (manual) Smear Path Review D-Dimer, Quantitative Puncture Site pCO2 pO2 HCO3 ABG pH ABG Total CO2 ABG O2 Saturation ABG Base Excess Brandon Test ABG Potassium A-a O2 Difference Respiratory Index Sodium Chloride Glucose Lactate Vent Mode Mechanical Rate FiO2 Tidal Volume PEEP Inspiratory BiPAP Expiratory BiPAP Crit Value Called To Crit Value Called By Crit Value Read Back Blood Gas Notified Time Potassium Carbon Dioxide Anion Gap BUN Creatinine Est GFR ( Amer) Est GFR (Non-Af Amer) POC Glucose (mg/dL) 228 H 225 H Random Glucose Calcium Phosphorus Magnesium Total Bilirubin AST ALT Alkaline Phosphatase Troponin I Total Protein Albumin Globulin Albumin/Globulin Ratio Arterial Blood Potassium Influenza Typ A,B (EIA) Negative for flu a/b Blood Type Antibody Screen 04/25/18 04/25/18 04/25/18 04:02 04:13 04:19 WBC 70.2 H* D RBC 5.55 H Hgb 13.9 D Hct 46.0 MCV 82.8 D MCH 25.1 L MCHC 30.3 L RDW 16.2 H Plt Count 347 MPV 9.3 Neut % (Auto) 90.9 H Lymph % (Auto) 6.1 L Starr % (Auto) 2.4 Eos % (Auto) 0.4 Baso % (Auto) 0.2 Neut # (Auto) 63.8 H Lymph # (Auto) 4.2 Starr # (Auto) 1.7 H Eos # (Auto) 0.3 Baso # (Auto) 0.1 Neutrophils % (Manual) 75 Band Neutrophils % 12 H* Lymphocytes % (Manual) 9 L Monocytes % (Manual) 2 Myelocytes % 2 H Platelet Estimate Normal Anisocytosis (manual) Slight Smear Path Review D-Dimer, Quantitative Puncture Site Femoral by md pCO2 23 L pO2 56 L HCO3 6.0 L* ABG pH 7.03 L* ABG Total CO2 6.8 L ABG O2 Saturation 82.9 L ABG Base Excess -23.3 L Brandon Test Pos ABG Potassium 4.3 A-a O2 Difference 628.0 Respiratory Index 11.2 Sodium 130.0 L Chloride 97.0 L Glucose 373 H Lactate 12.9 H* Vent Mode Mechanical Rate FiO2 100.0 Tidal Volume PEEP Inspiratory BiPAP 12 Expiratory BiPAP 5 Crit Value Called To Crit Value Called By Devin Crit Value Read Back Y Blood Gas Notified Time 416 Potassium Carbon Dioxide Anion Gap BUN Creatinine Est GFR ( Amer) Est GFR (Non-Af Amer) POC Glucose (mg/dL) 288 H Random Glucose Calcium Phosphorus Magnesium Total Bilirubin AST ALT Alkaline Phosphatase Troponin I Total Protein Albumin Globulin Albumin/Globulin Ratio Arterial Blood Potassium 4.3 Influenza Typ A,B (EIA) Blood Type Antibody Screen 04/25/18 04/25/18 04/25/18 04:19 05:06 05:30 WBC RBC Hgb Hct MCV MCH MCHC RDW Plt Count MPV Neut % (Auto) Lymph % (Auto) Starr % (Auto) Eos % (Auto) Baso % (Auto) Neut # (Auto) Lymph # (Auto) Starr # (Auto) Eos # (Auto) Baso # (Auto) Neutrophils % (Manual) Band Neutrophils % Lymphocytes % (Manual) Monocytes % (Manual) Myelocytes % Platelet Estimate Anisocytosis (manual) Smear Path Review D-Dimer, Quantitative Puncture Site R fem pCO2 23 L pO2 226 H HCO3 9.2 L* ABG pH 7.12 L* ABG Total CO2 8.2 L ABG O2 Saturation 100.7 H ABG Base Excess -20.2 L Brandon Test Na ABG Potassium 3.1 L A-a O2 Difference 458.0 Respiratory Index 2.0 Sodium 136 134.0 Chloride 101 104.0 Glucose 291 H Lactate 8.5 H* Vent Mode Prvc Mechanical Rate 20 FiO2 100.0 Tidal Volume 400 PEEP 5 Inspiratory BiPAP Expiratory BiPAP Crit Value Called To Crit Value Called By Jose R drill presser Crit Value Read Back Y Blood Gas Notified Time 510 Potassium 4.2 Carbon Dioxide 8 L* D Anion Gap 31 H BUN 23 H Creatinine 2.3 H Est GFR ( Amer) 26 Est GFR (Non-Af Amer) 21 POC Glucose (mg/dL) Random Glucose 335 H Calcium 6.7 L Phosphorus 5.7 H Magnesium 2.2 Total Bilirubin 0.5 AST 50 H D ALT 18 Alkaline Phosphatase 160 H Troponin I 0.0370 Total Protein 5.8 L Albumin 2.7 L Globulin 3.1 Albumin/Globulin Ratio 0.9 L Arterial Blood Potassium 3.1 L Influenza Typ A,B (EIA) Blood Type O NEGATIVE Antibody Screen Negative 04/25/18 04/25/18 04/25/18 05:35 10:27 10:42 WBC 72.6 H* RBC 5.33 H Hgb 13.3 Hct 42.6 MCV 80.0 L D MCH 25.0 L MCHC 31.2 L RDW 16.3 H Plt Count 294 MPV 9.5 Neut % (Auto) 92.4 H Lymph % (Auto) 4.8 L Starr % (Auto) 1.7 Eos % (Auto) 0.4 Baso % (Auto) 0.7 Neut # (Auto) 67.1 H Lymph # (Auto) 3.5 Starr # (Auto) 1.2 H Eos # (Auto) 0.3 Baso # (Auto) 0.5 H Neutrophils % (Manual) Band Neutrophils % Lymphocytes % (Manual) Monocytes % (Manual) Myelocytes % Platelet Estimate Anisocytosis (manual) Smear Path Review D-Dimer, Quantitative 5364 H Puncture Site Lf pCO2 21 L pO2 91 HCO3 16.1 L ABG pH 7.36 ABG Total CO2 12.5 L ABG O2 Saturation 98.9 H ABG Base Excess -11.3 L Brandon Test Na ABG Potassium 3.7 A-a O2 Difference 311.0 Respiratory Index 3.4 Sodium 135.0 Chloride 105.0 Glucose 164 H Lactate 6.1 H* Vent Mode Prvc Mechanical Rate 25 FiO2 60.0 Tidal Volume 500 PEEP 5 Inspiratory BiPAP Expiratory BiPAP Crit Value Called To Dr antoine dodge Crit Value Called By Nicole turner drill presser Crit Value Read Back Y Blood Gas Notified Time 1030 Potassium Carbon Dioxide Anion Gap BUN Creatinine Est GFR ( Amer) Est GFR (Non-Af Amer) POC Glucose (mg/dL) Random Glucose Calcium Phosphorus Magnesium Total Bilirubin AST ALT Alkaline Phosphatase Troponin I Total Protein Albumin Globulin Albumin/Globulin Ratio Arterial Blood Potassium 3.7 Influenza Typ A,B (EIA) Blood Type Antibody Screen EKG/Cardiology Studies: Cardiology / EKG Studies 04/24/18 17:07 EKG [ELECTROCARDIOGRAM] Stat Comment: Mode Of Transportation: Reason For Exam: ?seizure 04/25/18 03:55 EKG [ELECTROCARDIOGRAM] Stat Comment: Mode Of Transportation: Reason For Exam: SOB Isolation: Contact Review of Systems - Review of Systems Systems not reviewed;Unavailable: Intubated All systems: reviewed and no additional remarkable complaints except (as per HPI ) Critical Care Progress Note - Vent Settings MODE:: PRVC TIDAL VOLUME:: 500 RESP RATE:: 25 FIO2:: 100 PEEP:: 5 - Extremities/Vascular Does the Patient have a Central Venous Catheter?: Yes Insertion Site: Femoral Vein (right) Does the Patient have a Frazier Catheter?: Yes Does the Patient need a Frazier Catheter?: Yes (chandan, strict i and o) - Nutrition Nutrition: Nutrition Category Date Time Status NPO Diet [DIET] Diets 04/25/18 Breakfast Active Assessment/Plan - Assessment and Plan (Free Text) Assessment: This is a 67 y/o female with PMHx of HTN, lap jase, rectal ca (11 years ago treated with radiation only), lumbar back fixation who presented to the ED on 04/23/18 with complaints of abdominal pain w/ n/v/d. Pt was admitted to a regular floor after Abdominal CT showed pancolitis and pt was started on antibiotics. Later that day, pt sustained a fall without head trauma and normal subsequent neurological exam. On 04/24 a BOX TOE CUTTER was called at 1720 for vasovagal episode after using the toilet. EKG at that time was ST at 109, and she was given a 500 mL bolus of NS. Earlier this morning at 0358, BOX TOE CUTTER was called for tachypnea (rr 40-50)/sinus tach at 130 with lethargy and hypotension. Pt was placed on BPAP, but quickly intubated as ABG showed severe metabolic acidosis ( lactate 12.9). Pt treated with 1 amp of sodium bicarb and sodium bicarb gtt. Latest ABG shows some improvement of metabolic acidosis. Pt is currently intubated on PRVC mode, receiving Precedex for sedation, with levophed and phenylephrine for BP management. Pt will go to OR today. Treated in ICU for septic shock secondary to pancolitis, with chandan. Plan: Neuro: - monitor for mental status changes - Pt is AAOx3 at baseline - continue precedex for sedation Cardio: - maintain MAP>65 mmHg - levophed, phenylephrine drips - continue LR at 125 - troponin is negative x 2 Pulmonary: - PRVC: 500/5/25/100; 1005 spo2 - CXR: shows minimal increase of pulmonary vasculature - maintain HoB>30 degrees - oral hygiene - ABG shows improving metabolic acidosis GI: - (04/23) Abd/Pelv CT: Pancolitis without abcess or free air or ascites. hepatic steatosis. compression fx. (see report) - (04/25) abdominal x-ray shows potential developing ileus (see report) - surgical team evaluated the pt, and will bring the pt to OR today - NPO; zofran prn nausea - transaminitis (50/18/160) - GI is following, recs appreciated - pepcid for pud ppx ID: - ct scan shows pancolitis as above (see report) - pt noted to be in septic shock, secondary to pancolitis (possible perforation , r/o toxic megacolon) - leukocytosis is uptrending (70.2) with 12 bands - continue merrem, flagyl, oral vancomycin - ID consulted, recs appreciated - f/u c.diff toxin Renal: - CHANDAN (BUN/Cr is 23/2.3) - continue ivf - continue sodium bicarb gtt as pt with metabolic acidosis and CO2 of 8 - frazier catheter in place - strict I's and O's - avoid nephrotoxic medications - lactate is downtrending - maintain euvolemia Endo: - maintain euglycemia - ISS low q6h - accucheck q6h Heme: - H/H is stable - hold heparin as pt is going to OR today PPX: pepcid for pud; hold heparin for OR, SCDs Dispo: prognosis guarded; OR planned for today Case was reviewed and discussed with attending physician, Dr. Dodge <Darnell Dodge - Last Filed: 04/25/18 17:01> CCU Objective - Vital Signs / Intake & Output Vital Signs (Last 4 hours): Vital Signs Temp Pulse Resp BP 04/25/18 13:45 98.4 F 116 H 32 H 94/56 L 04/25/18 13:40 98 F 110 H 29 H 90/56 L 04/25/18 13:35 34 H 92/56 L 04/25/18 13:30 114 H 31 H 98/52 L 04/25/18 13:25 98.2 F 111 H 29 H 98/56 L 04/25/18 13:10 98.2 F 112 H 28 H 100/56 L 04/25/18 13:00 112 H 28 H 94/56 L Intake and Output (Last 8hrs): Intake & Output 04/25/18 04/25/18 04/25/18 06:59 14:59 22:59 Intake Total 3200 3207.3 Output Total 0 0 Balance 3200 3207.3 Weight 165 lb 9.6 oz Intake: Intake, IV Amount 2900 3207.3 Right Antecubital 900 Right Distal Port Femoral 187.5 Right Medial Port Femoral 54.8 Right Proximal Port 525 Femoral Right Subclavian 2000 1875 Rt SC Y-port 565 Oral 300 Blood Product 0 Red Blood Cells Cpd As1 0 Lr Unit [id number] Output: Urine 0 0 Urethral (Frazier) 0 0 Other: # Voids Urine, Voided 2 - Medications Active Medications: Active Medications Generic Name Dose Route Start Last Admin Trade Name Freq PRN Reason Stop Dose Admin Acetaminophen 650 mg 04/23/18 17:44 Tylenol 325mg Tab PO Q8 PRN fever Aspirin 81 mg 04/24/18 10:00 04/25/18 10:18 Aspirin Chewable PO Not Given DAILY OSMAR Dextrose 0 gm 04/25/18 13:33 Glutose 15 PO ONCE PRN Hypoglycemia Protocol Protocol Dextrose 0 ml 04/25/18 13:33 Dextrose 50% Inj IV STAT PRN Hypoglycemia Protocol Protocol Ergocalciferol 1 cap 04/24/18 10:00 08/06/18 09:29 Drisdol 50,000 Intl Units Cap PO 1 cap QWK OSMAR Administration Famotidine 20 mg 04/26/18 10:00 Pepcid IVP DAILY OSMAR Glucagon 0 mg 04/25/18 13:33 Glucagen Diagnostic Kit IM STAT PRN Hypoglycemia Protocol Protocol Hydrocortisone Sodium Succinate 100 mg 04/25/18 17:00 Solu-Cortef IV Q8H OSMAR Dexmedetomidine HCl 200 mcg/ 50 mls @ 3.74 mls/hr 04/25/18 06:07 04/25/18 07: 40 Sodium Chloride IV 0.2 mcg/kg/hr TITR PRN 3.74 mls/hr Agitation Administration Protocol 0.2 MCG/KG/HR Meropenem 500 mg/ Sodium 100 mls @ 100 mls/hr 04/25/18 06:30 04/25/18 14:30 Chloride IVPB 100 mls Q8H OSMAR Administration Protocol Metronidazole 500 mg in 100 mls @ 100 mls/hr 04/25/18 07:30 04/25/18 08:38 Flagyl IVPB 100 mls/hr Q8H OSMAR Administration Protocol Sodium Bicarbonate 100 meq/ 1,100 mls @ 75 mls/hr 04/25/18 07:45 04/25/18 07: 57 Sodium Chloride IV 75 mls/hr .[id number] OSMAR Administration Lactated Ringer's 1,000 mls @ 125 mls/hr 04/25/18 07:58 04/25/18 08:36 Lactated Ringer's IV 125 mls/hr .Q8H OSMAR Administration Norepinephrine Bitartrate 8 mg 258 mls @ 7.74 mls/hr 04/25/18 09:25 04/25/18 09:37 / Dextrose IV 4 mcg/min .Q24H PRN 7.74 mls/hr TITRATE PER MD ORDER Administration Protocol 4 MCG/MIN Phenylephrine HCl 30 mg/ 253 mls @ 10.12 mls/hr 04/25/18 12:35 04/25/18 13:35 Sodium Chloride IV 20 mcg/min .Q24H PRN 10.12 mls/hr TITRATE PER MD ORDER Administration Protocol 20 MCG/MIN Dextrose 1,000 mls @ 0 mls/hr 04/25/18 13:33 Dextrose 5% In Water 1000 Ml IV .Q0M PRN Hypoglycemia Protocol Protocol Per Protocol Epinephrine HCl 1 mg/ Sodium 251 mls @ 15.06 mls/hr 04/25/18 16:00 Chloride IV .[id number] PRN TITRATE PER MD ORDER Protocol 1 MCG/MIN Insulin Human Regular 0 unit 04/25/18 18:00 Novolin R SC Q6 [facility] Protocol Ondansetron HCl 4 mg 04/23/18 17:42 04/24/18 13:09 Zofran Inj IVP 4 mg Q8 PRN Administration Nausea/Vomiting Vancomycin HCl 500 mg 04/24/18 14:00 04/25/18 13:46 Vancocin (Oral Or Rectal Use) PO Not Given QID [facility] Protocol - Patient Studies Lab Studies: Microbiology Studies 04/23/18 09:30 Blood Culture - Preliminary Blood NO GROWTH AFTER 48 HOURS 04/23/18 09:00 Blood Culture - Preliminary Blood NO GROWTH AFTER 48 HOURS 04/23/18 10:22 Urine Culture - Final Urine No Growth (<1,000 CFU/ML) Lab Studies 04/25/18 04/25/18 04/25/18 Range/Units 16:15 15:41 15:41 WBC 57.9 H* (4.8-10.8) K/uL RBC 3.40 L (3.80-5.20) Mil/uL Hgb 8.3 L D (11.0-16.0) g/dL Hct 28.8 L (34.0-47.0) % MCV 84.7 D (81.0-99.0) fL MCH 24.6 L (27.0-31.0) pg MCHC 29.0 L (33.0-37.0) g/dL RDW 16.1 H (11.5-14.5) % Plt Count 103 L D (130-400) K/uL MPV 9.0 (7.2-11.7) fL Neut % (Auto) (50.0-75.0) % Lymph % (Auto) (20.0-40.0) % Starr % (Auto) (0.0-10.0) % Eos % (Auto) (0.0-4.0) % Baso % (Auto) (0.0-2.0) % Neut # (Auto) (1.8-7.0) K/uL Lymph # (Auto) (1.0-4.3) K/uL Starr # (Auto) (0.0-0.8) K/uL Eos # (Auto) (0.0-0.7) K/uL Baso # (Auto) (0.0-0.2) K/uL Neutrophils % (Manual) (50-75) % Band Neutrophils % (0-2) % Lymphocytes % (Manual) (20-40) % Reactive Lymphs % (0-0) % Monocytes % (Manual) (0-10) % Metamyelocytes % (0-0) % Myelocytes % (0-0) % Differential Comment Platelet Estimate (NORMAL) Large Platelets Anisocytosis (manual) Juanita Cells Smear Path Review PT (9.7-12.2) SECONDS INR APTT (21-34) SECONDS D-Dimer, Quantitative (0-243) ng/mlDDU Puncture Site Line pCO2 45 (35-45) mm/Hg pO2 67 L (80-100) mm/Hg HCO3 5.6 L* (21-28) mmol/L ABG pH 6.90 L* (7.35-7.45) ABG Total CO2 10.2 L (22-28) mmol/L ABG O2 Saturation 90.1 L (95-98) % ABG Base Excess -23.9 L (-2.0-3.0) mmol/L Brandon Test Na ABG Potassium 4.9 (3.6-5.2) mmol/L A-a O2 Difference 590.0 mm/Hg Respiratory Index 8.8 Sodium 136.0 141 (132-148) mmol/l Chloride 103.0 102 (98-107) mmol/L Glucose 170 H (65-105) mg/dl Lactate 17.4 H* (0.7-2.1) mmol/L Vent Mode A/c Mechanical Rate FiO2 100.0 % Tidal Volume PEEP Inspiratory BiPAP Expiratory BiPAP Crit Value Called To Dr artis Crit Value Called By Nicole turner drill presser Crit Value Read Back Y Blood Gas Notified Time 1622 Potassium 5.3 H (3.6-5.2) mmol/L Carbon Dioxide 12 L (22-30) mmol/L Anion Gap 33 H (10-20) BUN 21 H (7-17) mg/dL Creatinine 2.1 H (0.7-1.2) mg/dL Est GFR ( Amer) 28 Est GFR (Non-Af Amer) 23 POC Glucose (mg/dL) (65-110) mg/dL Random Glucose 162 H (65-105) mg/dL Calcium 9.9 (8.6-10.4) mg/dl Phosphorus 10.7 H (2.5-4.5) mg/dL Magnesium 2.1 (1.6-2.3) mg/dL Total Bilirubin 0.3 (0.2-1.3) mg/dL AST (14-36) U/L ALT 507 H D (9-52) U/L Alkaline Phosphatase 77 (38-126) U/L Troponin I (0.00-0.120) ng/mL Total Protein 2.5 L (6.3-8.3) g/dL Albumin 1.2 L D (3.5-5.0) g/dL Globulin 1.3 L (2.2-3.9) gm/dL Albumin/Globulin Ratio 0.9 L (1.0-2.1) Arterial Blood Potassium 4.9 (3.6-5.2) mmol/L Influenza Typ A,B (EIA) (NEGATIVE) Blood Type Antibody Screen 04/25/18 04/25/18 04/25/18 Range/Units 15:13 14:54 12:36 WBC (4.8-10.8) K/uL RBC (3.80-5.20) Mil/uL Hgb (11.0-16.0) g/dL Hct (34.0-47.0) % MCV (81.0-99.0) fL MCH (27.0-31.0) pg MCHC (33.0-37.0) g/dL RDW (11.5-14.5) % Plt Count (130-400) K/uL MPV (7.2-11.7) fL Neut % (Auto) (50.0-75.0) % Lymph % (Auto) (20.0-40.0) % Starr % (Auto) (0.0-10.0) % Eos % (Auto) (0.0-4.0) % Baso % (Auto) (0.0-2.0) % Neut # (Auto) (1.8-7.0) K/uL Lymph # (Auto) (1.0-4.3) K/uL Starr # (Auto) (0.0-0.8) K/uL Eos # (Auto) (0.0-0.7) K/uL Baso # (Auto) (0.0-0.2) K/uL Neutrophils % (Manual) (50-75) % Band Neutrophils % (0-2) % Lymphocytes % (Manual) (20-40) % Reactive Lymphs % (0-0) % Monocytes % (Manual) (0-10) % Metamyelocytes % (0-0) % Myelocytes % (0-0) % Differential Comment Platelet Estimate (NORMAL) Large Platelets Anisocytosis (manual) Flynn Cells Smear Path Review PT (9.7-12.2) SECONDS INR APTT (21-34) SECONDS D-Dimer, Quantitative (0-243) ng/mlDDU Puncture Site Line Line pCO2 49 H 94 H* (35-45) mm/Hg pO2 56 L 35 L* (80-100) mm/Hg HCO3 5.1 L* 36.6 H (21-28) mmol/L ABG pH 6.88 L* 7.31 L (7.35-7.45) ABG Total CO2 10.7 L 50.2 H (22-28) mmol/L ABG O2 Saturation 80.0 L 64.4 L (95-98) % ABG Base Excess -24.1 L 16.2 H (-2.0-3.0) mmol/L Brandon Test Na Na ABG Potassium 4.8 4.8 (3.6-5.2) mmol/L A-a O2 Difference 596.0 561.0 mm/Hg Respiratory Index 10.6 16.0 Sodium 138.0 158.0 H (132-148) mmol/l Chloride 102.0 108.0 H (98-107) mmol/L Glucose 141 H 86 (65-105) mg/dl Lactate 18.3 H* 17.9 H* (0.7-2.1) mmol/L Vent Mode A/c Mechanical Rate FiO2 100.0 100.0 % Tidal Volume PEEP Inspiratory BiPAP Expiratory BiPAP Crit Value Called To Dr chandra artis Crit Value Called By Nicole turner drill presser Nicole norman drill presser Crit Value Read Back Y Y Blood Gas Notified Time 1518 1458 Potassium (3.6-5.2) mmol/L Carbon Dioxide (22-30) mmol/L Anion Gap (10-20) BUN (7-17) mg/dL Creatinine (0.7-1.2) mg/dL Est GFR ( Amer) Est GFR (Non-Af Amer) POC Glucose (mg/dL) 152 H (65-110) mg/dL Random Glucose (65-105) mg/dL Calcium (8.6-10.4) mg/dl Phosphorus (2.5-4.5) mg/dL Magnesium (1.6-2.3) mg/dL Total Bilirubin (0.2-1.3) mg/dL AST (14-36) U/L ALT (9-52) U/L Alkaline Phosphatase (38-126) U/L Troponin I (0.00-0.120) ng/mL Total Protein (6.3-8.3) g/dL Albumin (3.5-5.0) g/dL Globulin (2.2-3.9) gm/dL Albumin/Globulin Ratio (1.0-2.1) Arterial Blood Potassium 4.8 4.8 (3.6-5.2) mmol/L Influenza Typ A,B (EIA) (NEGATIVE) Blood Type Antibody Screen 04/25/18 04/25/18 04/25/18 Range/Units 10:42 10:42 10:27 WBC 72.6 H* (4.8-10.8) K/uL RBC 5.33 H (3.80-5.20) Mil/uL Hgb 13.3 (11.0-16.0) g/dL Hct 42.6 (34.0-47.0) % MCV 80.0 L D (81.0-99.0) fL MCH 25.0 L (27.0-31.0) pg MCHC 31.2 L (33.0-37.0) g/dL RDW 16.3 H (11.5-14.5) % Plt Count 294 (130-400) K/uL MPV 9.5 (7.2-11.7) fL Neut % (Auto) 92.4 H (50.0-75.0) % Lymph % (Auto) 4.8 L (20.0-40.0) % Starr % (Auto) 1.7 (0.0-10.0) % Eos % (Auto) 0.4 (0.0-4.0) % Baso % (Auto) 0.7 (0.0-2.0) % Neut # (Auto) 67.1 H (1.8-7.0) K/uL Lymph # (Auto) 3.5 (1.0-4.3) K/uL Starr # (Auto) 1.2 H (0.0-0.8) K/uL Eos # (Auto) 0.3 (0.0-0.7) K/uL Baso # (Auto) 0.5 H (0.0-0.2) K/uL Neutrophils % (Manual) 71 (50-75) % Band Neutrophils % 14 H* (0-2) % Lymphocytes % (Manual) 6 L (20-40) % Reactive Lymphs % 1 H (0-0) % Monocytes % (Manual) 5 (0-10) % Metamyelocytes % 3 H (0-0) % Myelocytes % (0-0) % Differential Comment Platelet Estimate Normal (NORMAL) Large Platelets Present Anisocytosis (manual) Slight Flynn Cells Moderate Smear Path Review PT 15.2 H (9.7-12.2) SECONDS INR 1.4 APTT 36 H (21-34) SECONDS D-Dimer, Quantitative (0-243) ng/mlDDU Puncture Site Lf pCO2 21 L (35-45) mm/Hg pO2 91 (80-100) mm/Hg HCO3 16.1 L (21-28) mmol/L ABG pH 7.36 (7.35-7.45) ABG Total CO2 12.5 L (22-28) mmol/L ABG O2 Saturation 98.9 H (95-98) % ABG Base Excess -11.3 L (-2.0-3.0) mmol/L Brandon Test Na ABG Potassium 3.7 (3.6-5.2) mmol/L A-a O2 Difference 311.0 mm/Hg Respiratory Index 3.4 Sodium 135.0 (132-148) mmol/l Chloride 105.0 (98-107) mmol/L Glucose 164 H (65-105) mg/dl Lactate 6.1 H* (0.7-2.1) mmol/L Vent Mode Prvc Mechanical Rate 25 FiO2 60.0 % Tidal Volume 500 PEEP 5 Inspiratory BiPAP Expiratory BiPAP Crit Value Called To Dr antoine dodge Crit Value Called By Nicole turner drill presser Crit Value Read Back Y Blood Gas Notified Time 1030 Potassium (3.6-5.2) mmol/L Carbon Dioxide (22-30) mmol/L Anion Gap (10-20) BUN (7-17) mg/dL Creatinine (0.7-1.2) mg/dL Est GFR ( Amer) Est GFR (Non-Af Amer) POC Glucose (mg/dL) (65-110) mg/dL Random Glucose (65-105) mg/dL Calcium (8.6-10.4) mg/dl Phosphorus (2.5-4.5) mg/dL Magnesium (1.6-2.3) mg/dL Total Bilirubin (0.2-1.3) mg/dL AST (14-36) U/L ALT (9-52) U/L Alkaline Phosphatase (38-126) U/L Troponin I (0.00-0.120) ng/mL Total Protein (6.3-8.3) g/dL Albumin (3.5-5.0) g/dL Globulin (2.2-3.9) gm/dL Albumin/Globulin Ratio (1.0-2.1) Arterial Blood Potassium 3.7 (3.6-5.2) mmol/L Influenza Typ A,B (EIA) (NEGATIVE) Blood Type Antibody Screen 04/25/18 04/25/18 04/25/18 Range/Units 05:35 05:30 05:06 WBC (4.8-10.8) K/uL RBC (3.80-5.20) Mil/uL Hgb (11.0-16.0) g/dL Hct (34.0-47.0) % MCV (81.0-99.0) fL MCH (27.0-31.0) pg MCHC (33.0-37.0) g/dL RDW (11.5-14.5) % Plt Count (130-400) K/uL MPV (7.2-11.7) fL Neut % (Auto) (50.0-75.0) % Lymph % (Auto) (20.0-40.0) % Starr % (Auto) (0.0-10.0) % Eos % (Auto) (0.0-4.0) % Baso % (Auto) (0.0-2.0) % Neut # (Auto) (1.8-7.0) K/uL Lymph # (Auto) (1.0-4.3) K/uL Starr # (Auto) (0.0-0.8) K/uL Eos # (Auto) (0.0-0.7) K/uL Baso # (Auto) (0.0-0.2) K/uL Neutrophils % (Manual) (50-75) % Band Neutrophils % (0-2) % Lymphocytes % (Manual) (20-40) % Reactive Lymphs % (0-0) % Monocytes % (Manual) (0-10) % Metamyelocytes % (0-0) % Myelocytes % (0-0) % Differential Comment Platelet Estimate (NORMAL) Large Platelets Anisocytosis (manual) Flynn Cells Smear Path Review PT (9.7-12.2) SECONDS INR APTT (21-34) SECONDS D-Dimer, Quantitative 5364 H (0-243) ng/mlDDU Puncture Site R fem pCO2 23 L (35-45) mm/Hg pO2 226 H (80-100) mm/Hg HCO3 9.2 L* (21-28) mmol/L ABG pH 7.12 L* (7.35-7.45) ABG Total CO2 8.2 L (22-28) mmol/L ABG O2 Saturation 100.7 H (95-98) % ABG Base Excess -20.2 L (-2.0-3.0) mmol/L Brandon Test Na ABG Potassium 3.1 L (3.6-5.2) mmol/L A-a O2 Difference 458.0 mm/Hg Respiratory Index 2.0 Sodium 134.0 (132-148) mmol/l Chloride 104.0 (98-107) mmol/L Glucose 291 H (65-105) mg/dl Lactate 8.5 H* (0.7-2.1) mmol/L Vent Mode Prvc Mechanical Rate 20 FiO2 100.0 % Tidal Volume 400 PEEP 5 Inspiratory BiPAP Expiratory BiPAP Crit Value Called To Crit Value Called By Jose R drill presser Crit Value Read Back Y Blood Gas Notified Time 510 Potassium (3.6-5.2) mmol/L Carbon Dioxide (22-30) mmol/L Anion Gap (10-20) BUN (7-17) mg/dL Creatinine (0.7-1.2) mg/dL Est GFR ( Amer) Est GFR (Non-Af Amer) POC Glucose (mg/dL) (65-110) mg/dL Random Glucose (65-105) mg/dL Calcium (8.6-10.4) mg/dl Phosphorus (2.5-4.5) mg/dL Magnesium (1.6-2.3) mg/dL Total Bilirubin (0.2-1.3) mg/dL AST (14-36) U/L ALT (9-52) U/L Alkaline Phosphatase (38-126) U/L Troponin I (0.00-0.120) ng/mL Total Protein (6.3-8.3) g/dL Albumin (3.5-5.0) g/dL Globulin (2.2-3.9) gm/dL Albumin/Globulin Ratio (1.0-2.1) Arterial Blood Potassium 3.1 L (3.6-5.2) mmol/L Influenza Typ A,B (EIA) (NEGATIVE) Blood Type O NEGATIVE Antibody Screen Negative 04/25/18 04/25/18 04/25/18 Range/Units 04:19 04:19 04:13 WBC 70.2 H* D (4.8-10.8) K/uL RBC 5.55 H (3.80-5.20) Mil/uL Hgb 13.9 D (11.0-16.0) g/dL Hct 46.0 (34.0-47.0) % MCV 82.8 D (81.0-99.0) fL MCH 25.1 L (27.0-31.0) pg MCHC 30.3 L (33.0-37.0) g/dL RDW 16.2 H (11.5-14.5) % Plt Count 347 (130-400) K/uL MPV 9.3 (7.2-11.7) fL Neut % (Auto) 90.9 H (50.0-75.0) % Lymph % (Auto) 6.1 L (20.0-40.0) % Starr % (Auto) 2.4 (0.0-10.0) % Eos % (Auto) 0.4 (0.0-4.0) % Baso % (Auto) 0.2 (0.0-2.0) % Neut # (Auto) 63.8 H (1.8-7.0) K/uL Lymph # (Auto) 4.2 (1.0-4.3) K/uL Starr # (Auto) 1.7 H (0.0-0.8) K/uL Eos # (Auto) 0.3 (0.0-0.7) K/uL Baso # (Auto) 0.1 (0.0-0.2) K/uL Neutrophils % (Manual) 75 (50-75) % Band Neutrophils % 12 H* (0-2) % Lymphocytes % (Manual) 9 L (20-40) % Reactive Lymphs % (0-0) % Monocytes % (Manual) 2 (0-10) % Metamyelocytes % (0-0) % Myelocytes % 2 H (0-0) % Differential Comment Platelet Estimate Normal (NORMAL) Large Platelets Anisocytosis (manual) Slight Flynn Cells Smear Path Review PT (9.7-12.2) SECONDS INR APTT (21-34) SECONDS D-Dimer, Quantitative (0-243) ng/mlDDU Puncture Site Femoral by pCO2 23 L (35-45) mm/Hg pO2 56 L (80-100) mm/Hg HCO3 6.0 L* (21-28) mmol/L ABG pH 7.03 L* (7.35-7.45) ABG Total CO2 6.8 L (22-28) mmol/L ABG O2 Saturation 82.9 L (95-98) % ABG Base Excess -23.3 L (-2.0-3.0) mmol/L Brandon Test Pos ABG Potassium 4.3 (3.6-5.2) mmol/L A-a O2 Difference 628.0 mm/Hg Respiratory Index 11.2 Sodium 136 130.0 L (132-148) mmol/l Chloride 101 97.0 L (98-107) mmol/L Glucose 373 H (65-105) mg/dl Lactate 12.9 H* (0.7-2.1) mmol/L Vent Mode Mechanical Rate FiO2 100.0 % Tidal Volume PEEP Inspiratory BiPAP 12 Expiratory BiPAP 5 Crit Value Called To Crit Value Called By Devin Crit Value Read Back Y Blood Gas Notified Time 416 Potassium 4.2 (3.6-5.2) mmol/L Carbon Dioxide 8 L* D (22-30) mmol/L Anion Gap 31 H (10-20) BUN 23 H (7-17) mg/dL Creatinine 2.3 H (0.7-1.2) mg/dL Est GFR ( Amer) 26 Est GFR (Non-Af Amer) 21 POC Glucose (mg/dL) (65-110) mg/dL Random Glucose 335 H (65-105) mg/dL Calcium 6.7 L (8.6-10.4) mg/dl Phosphorus 5.7 H (2.5-4.5) mg/dL Magnesium 2.2 (1.6-2.3) mg/dL Total Bilirubin 0.5 (0.2-1.3) mg/dL AST 50 H D (14-36) U/L ALT 18 (9-52) U/L Alkaline Phosphatase 160 H (38-126) U/L Troponin I 0.0370 (0.00-0.120) ng/mL Total Protein 5.8 L (6.3-8.3) g/dL Albumin 2.7 L (3.5-5.0) g/dL Globulin 3.1 (2.2-3.9) gm/dL Albumin/Globulin Ratio 0.9 L (1.0-2.1) Arterial Blood Potassium 4.3 (3.6-5.2) mmol/L Influenza Typ A,B (EIA) (NEGATIVE) Blood Type Antibody Screen 04/25/18 04/24/18 04/24/18 Range/Units 04:02 22:27 17:04 WBC (4.8-10.8) K/uL RBC (3.80-5.20) Mil/uL Hgb (11.0-16.0) g/dL Hct (34.0-47.0) % MCV (81.0-99.0) fL MCH (27.0-31.0) pg MCHC (33.0-37.0) g/dL RDW (11.5-14.5) % Plt Count (130-400) K/uL MPV (7.2-11.7) fL Neut % (Auto) (50.0-75.0) % Lymph % (Auto) (20.0-40.0) % Starr % (Auto) (0.0-10.0) % Eos % (Auto) (0.0-4.0) % Baso % (Auto) (0.0-2.0) % Neut # (Auto) (1.8-7.0) K/uL Lymph # (Auto) (1.0-4.3) K/uL Starr # (Auto) (0.0-0.8) K/uL Eos # (Auto) (0.0-0.7) K/uL Baso # (Auto) (0.0-0.2) K/uL Neutrophils % (Manual) (50-75) % Band Neutrophils % (0-2) % Lymphocytes % (Manual) (20-40) % Reactive Lymphs % (0-0) % Monocytes % (Manual) (0-10) % Metamyelocytes % (0-0) % Myelocytes % (0-0) % Differential Comment Platelet Estimate (NORMAL) Large Platelets Anisocytosis (manual) Flynn Cells Smear Path Review PT (9.7-12.2) SECONDS INR APTT (21-34) SECONDS D-Dimer, Quantitative (0-243) ng/mlDDU Puncture Site pCO2 (35-45) mm/Hg pO2 (80-100) mm/Hg HCO3 (21-28) mmol/L ABG pH (7.35-7.45) ABG Total CO2 (22-28) mmol/L ABG O2 Saturation (95-98) % ABG Base Excess (-2.0-3.0) mmol/L Brandon Test ABG Potassium (3.6-5.2) mmol/L A-a O2 Difference mm/Hg Respiratory Index Sodium (132-148) mmol/l Chloride (98-107) mmol/L Glucose (65-105) mg/dl Lactate (0.7-2.1) mmol/L Vent Mode Mechanical Rate FiO2 % Tidal Volume PEEP Inspiratory BiPAP Expiratory BiPAP Crit Value Called To Crit Value Called By Crit Value Read Back Blood Gas Notified Time Potassium (3.6-5.2) mmol/L Carbon Dioxide (22-30) mmol/L Anion Gap (10-20) BUN (7-17) mg/dL Creatinine (0.7-1.2) mg/dL Est GFR ( Amer) Est GFR (Non-Af Amer) POC Glucose (mg/dL) 288 H 225 H (65-110) mg/dL Random Glucose (65-105) mg/dL Calcium (8.6-10.4) mg/dl Phosphorus (2.5-4.5) mg/dL Magnesium (1.6-2.3) mg/dL Total Bilirubin (0.2-1.3) mg/dL AST (14-36) U/L ALT (9-52) U/L Alkaline Phosphatase (38-126) U/L Troponin I (0.00-0.120) ng/mL Total Protein (6.3-8.3) g/dL Albumin (3.5-5.0) g/dL Globulin (2.2-3.9) gm/dL Albumin/Globulin Ratio (1.0-2.1) Arterial Blood Potassium (3.6-5.2) mmol/L Influenza Typ A,B (EIA) Negative for flu a/b (NEGATIVE) Blood Type Antibody Screen 04/24/18 Range/Units 13:22 WBC (4.8-10.8) K/uL RBC (3.80-5.20) Mil/uL Hgb (11.0-16.0) g/dL Hct (34.0-47.0) % MCV (81.0-99.0) fL MCH (27.0-31.0) pg MCHC (33.0-37.0) g/dL RDW (11.5-14.5) % Plt Count (130-400) K/uL MPV (7.2-11.7) fL Neut % (Auto) (50.0-75.0) % Lymph % (Auto) (20.0-40.0) % Starr % (Auto) (0.0-10.0) % Eos % (Auto) (0.0-4.0) % Baso % (Auto) (0.0-2.0) % Neut # (Auto) (1.8-7.0) K/uL Lymph # (Auto) (1.0-4.3) K/uL Starr # (Auto) (0.0-0.8) K/uL Eos # (Auto) (0.0-0.7) K/uL Baso # (Auto) (0.0-0.2) K/uL Neutrophils % (Manual) (50-75) % Band Neutrophils % (0-2) % Lymphocytes % (Manual) (20-40) % Reactive Lymphs % (0-0) % Monocytes % (Manual) (0-10) % Metamyelocytes % (0-0) % Myelocytes % (0-0) % Differential Comment Platelet Estimate (NORMAL) Large Platelets Anisocytosis (manual) Juanita Cells Smear Path Review PT (9.7-12.2) SECONDS INR APTT (21-34) SECONDS D-Dimer, Quantitative (0-243) ng/mlDDU Puncture Site pCO2 (35-45) mm/Hg pO2 (80-100) mm/Hg HCO3 (21-28) mmol/L ABG pH (7.35-7.45) ABG Total CO2 (22-28) mmol/L ABG O2 Saturation (95-98) % ABG Base Excess (-2.0-3.0) mmol/L Brandon Test ABG Potassium (3.6-5.2) mmol/L A-a O2 Difference mm/Hg Respiratory Index Sodium (132-148) mmol/l Chloride (98-107) mmol/L Glucose (65-105) mg/dl Lactate (0.7-2.1) mmol/L Vent Mode Mechanical Rate FiO2 % Tidal Volume PEEP Inspiratory BiPAP Expiratory BiPAP Crit Value Called To Crit Value Called By Crit Value Read Back Blood Gas Notified Time Potassium (3.6-5.2) mmol/L Carbon Dioxide (22-30) mmol/L Anion Gap (10-20) BUN (7-17) mg/dL Creatinine (0.7-1.2) mg/dL Est GFR ( Amer) Est GFR (Non-Af Amer) POC Glucose (mg/dL) 228 H (65-110) mg/dL Random Glucose (65-105) mg/dL Calcium (8.6-10.4) mg/dl Phosphorus (2.5-4.5) mg/dL Magnesium (1.6-2.3) mg/dL Total Bilirubin (0.2-1.3) mg/dL AST (14-36) U/L ALT (9-52) U/L Alkaline Phosphatase (38-126) U/L Troponin I (0.00-0.120) ng/mL Total Protein (6.3-8.3) g/dL Albumin (3.5-5.0) g/dL Globulin (2.2-3.9) gm/dL Albumin/Globulin Ratio (1.0-2.1) Arterial Blood Potassium (3.6-5.2) mmol/L Influenza Typ A,B (EIA) (NEGATIVE) Blood Type Antibody Screen Laboratory Results - last 24 hr 04/24/18 04/24/18 04/24/18 13:22 17:04 22:27 WBC RBC Hgb Hct MCV MCH MCHC RDW Plt Count MPV Neut % (Auto) Lymph % (Auto) Starr % (Auto) Eos % (Auto) Baso % (Auto) Neut # (Auto) Lymph # (Auto) Starr # (Auto) Eos # (Auto) Baso # (Auto) Neutrophils % (Manual) Band Neutrophils % Lymphocytes % (Manual) Reactive Lymphs % Monocytes % (Manual) Metamyelocytes % Myelocytes % Differential Comment Platelet Estimate Large Platelets Anisocytosis (manual) Juanita Cells Smear Path Review PT INR APTT D-Dimer, Quantitative Puncture Site pCO2 pO2 HCO3 ABG pH ABG Total CO2 ABG O2 Saturation ABG Base Excess Brandon Test ABG Potassium A-a O2 Difference Respiratory Index Sodium Chloride Glucose Lactate Vent Mode Mechanical Rate FiO2 Tidal Volume PEEP Inspiratory BiPAP Expiratory BiPAP Crit Value Called To Crit Value Called By Crit Value Read Back Blood Gas Notified Time Potassium Carbon Dioxide Anion Gap BUN Creatinine Est GFR ( Amer) Est GFR (Non-Af Amer) POC Glucose (mg/dL) 228 H 225 H Random Glucose Calcium Phosphorus Magnesium Total Bilirubin AST ALT Alkaline Phosphatase Troponin I Total Protein Albumin Globulin Albumin/Globulin Ratio Arterial Blood Potassium Influenza Typ A,B (EIA) Negative for flu a/b Blood Type Antibody Screen 04/25/18 04/25/18 04/25/18 04:02 04:13 04:19 WBC 70.2 H* D RBC 5.55 H Hgb 13.9 D Hct 46.0 MCV 82.8 D MCH 25.1 L MCHC 30.3 L RDW 16.2 H Plt Count 347 MPV 9.3 Neut % (Auto) 90.9 H Lymph % (Auto) 6.1 L Starr % (Auto) 2.4 Eos % (Auto) 0.4 Baso % (Auto) 0.2 Neut # (Auto) 63.8 H Lymph # (Auto) 4.2 Starr # (Auto) 1.7 H Eos # (Auto) 0.3 Baso # (Auto) 0.1 Neutrophils % (Manual) 75 Band Neutrophils % 12 H* Lymphocytes % (Manual) 9 L Reactive Lymphs % Monocytes % (Manual) 2 Metamyelocytes % Myelocytes % 2 H Differential Comment Platelet Estimate Normal Large Platelets Anisocytosis (manual) Slight Juanita Cells Smear Path Review PT INR APTT D-Dimer, Quantitative Puncture Site Femoral by pCO2 23 L pO2 56 L HCO3 6.0 L* ABG pH 7.03 L* ABG Total CO2 6.8 L ABG O2 Saturation 82.9 L ABG Base Excess -23.3 L Brandon Test Pos ABG Potassium 4.3 A-a O2 Difference 628.0 Respiratory Index 11.2 Sodium 130.0 L Chloride 97.0 L Glucose 373 H Lactate 12.9 H* Vent Mode Mechanical Rate FiO2 100.0 Tidal Volume PEEP Inspiratory BiPAP 12 Expiratory BiPAP 5 Crit Value Called To Crit Value Called By Devin Crit Value Read Back Y Blood Gas Notified Time 416 Potassium Carbon Dioxide Anion Gap BUN Creatinine Est GFR ( Amer) Est GFR (Non-Af Amer) POC Glucose (mg/dL) 288 H Random Glucose Calcium Phosphorus Magnesium Total Bilirubin AST ALT Alkaline Phosphatase Troponin I Total Protein Albumin Globulin Albumin/Globulin Ratio Arterial Blood Potassium 4.3 Influenza Typ A,B (EIA) Blood Type Antibody Screen 04/25/18 04/25/18 04/25/18 04:19 05:06 05:30 WBC RBC Hgb Hct MCV MCH MCHC RDW Plt Count MPV Neut % (Auto) Lymph % (Auto) Starr % (Auto) Eos % (Auto) Baso % (Auto) Neut # (Auto) Lymph # (Auto) Starr # (Auto) Eos # (Auto) Baso # (Auto) Neutrophils % (Manual) Band Neutrophils % Lymphocytes % (Manual) Reactive Lymphs % Monocytes % (Manual) Metamyelocytes % Myelocytes % Differential Comment Platelet Estimate Large Platelets Anisocytosis (manual) Flynn Cells Smear Path Review PT INR APTT D-Dimer, Quantitative Puncture Site R fem pCO2 23 L pO2 226 H HCO3 9.2 L* ABG pH 7.12 L* ABG Total CO2 8.2 L ABG O2 Saturation 100.7 H ABG Base Excess -20.2 L Brandon Test Na ABG Potassium 3.1 L A-a O2 Difference 458.0 Respiratory Index 2.0 Sodium 136 134.0 Chloride 101 104.0 Glucose 291 H Lactate 8.5 H* Vent Mode Prvc Mechanical Rate 20 FiO2 100.0 Tidal Volume 400 PEEP 5 Inspiratory BiPAP Expiratory BiPAP Crit Value Called To Crit Value Called By Jose R drill presser Crit Value Read Back Y Blood Gas Notified Time 510 Potassium 4.2 Carbon Dioxide 8 L* D Anion Gap 31 H BUN 23 H Creatinine 2.3 H Est GFR ( Amer) 26 Est GFR (Non-Af Amer) 21 POC Glucose (mg/dL) Random Glucose 335 H Calcium 6.7 L Phosphorus 5.7 H Magnesium 2.2 Total Bilirubin 0.5 AST 50 H D ALT 18 Alkaline Phosphatase 160 H Troponin I 0.0370 Total Protein 5.8 L Albumin 2.7 L Globulin 3.1 Albumin/Globulin Ratio 0.9 L Arterial Blood Potassium 3.1 L Influenza Typ A,B (EIA) Blood Type O NEGATIVE Antibody Screen Negative 04/25/18 04/25/18 04/25/18 05:35 10:27 10:42 WBC RBC Hgb Hct MCV MCH MCHC RDW Plt Count MPV Neut % (Auto) Lymph % (Auto) Starr % (Auto) Eos % (Auto) Baso % (Auto) Neut # (Auto) Lymph # (Auto) Starr # (Auto) Eos # (Auto) Baso # (Auto) Neutrophils % (Manual) Band Neutrophils % Lymphocytes % (Manual) Reactive Lymphs % Monocytes % (Manual) Metamyelocytes % Myelocytes % Differential Comment Platelet Estimate Large Platelets Anisocytosis (manual) Flynn Cells Smear Path Review PT 15.2 H INR 1.4 APTT 36 H D-Dimer, Quantitative 5364 H Puncture Site Lf pCO2 21 L pO2 91 HCO3 16.1 L ABG pH 7.36 ABG Total CO2 12.5 L ABG O2 Saturation 98.9 H ABG Base Excess -11.3 L Brandon Test Na ABG Potassium 3.7 A-a O2 Difference 311.0 Respiratory Index 3.4 Sodium 135.0 Chloride 105.0 Glucose 164 H Lactate 6.1 H* Vent Mode Prvc Mechanical Rate 25 FiO2 60.0 Tidal Volume 500 PEEP 5 Inspiratory BiPAP Expiratory BiPAP Crit Value Called To Dr antoine dodge Crit Value Called By Nicole turner drill presser Crit Value Read Back Y Blood Gas Notified Time 1030 Potassium Carbon Dioxide Anion Gap BUN Creatinine Est GFR ( Amer) Est GFR (Non-Af Amer) POC Glucose (mg/dL) Random Glucose Calcium Phosphorus Magnesium Total Bilirubin AST ALT Alkaline Phosphatase Troponin I Total Protein Albumin Globulin Albumin/Globulin Ratio Arterial Blood Potassium 3.7 Influenza Typ A,B (EIA) Blood Type Antibody Screen 04/25/18 04/25/18 04/25/18 10:42 12:36 14:54 WBC 72.6 H* RBC 5.33 H Hgb 13.3 Hct 42.6 MCV 80.0 L D MCH 25.0 L MCHC 31.2 L RDW 16.3 H Plt Count 294 MPV 9.5 Neut % (Auto) 92.4 H Lymph % (Auto) 4.8 L Starr % (Auto) 1.7 Eos % (Auto) 0.4 Baso % (Auto) 0.7 Neut # (Auto) 67.1 H Lymph # (Auto) 3.5 Starr # (Auto) 1.2 H Eos # (Auto) 0.3 Baso # (Auto) 0.5 H Neutrophils % (Manual) 71 Band Neutrophils % 14 H* Lymphocytes % (Manual) 6 L Reactive Lymphs % 1 H Monocytes % (Manual) 5 Metamyelocytes % 3 H Myelocytes % Differential Comment Platelet Estimate Normal Large Platelets Present Anisocytosis (manual) Slight Juanita Cells Moderate Smear Path Review PT INR APTT D-Dimer, Quantitative Puncture Site Line pCO2 94 H* pO2 35 L* HCO3 36.6 H ABG pH 7.31 L ABG Total CO2 50.2 H ABG O2 Saturation 64.4 L ABG Base Excess 16.2 H Brandon Test Na ABG Potassium 4.8 A-a O2 Difference 561.0 Respiratory Index 16.0 Sodium 158.0 H Chloride 108.0 H Glucose 86 Lactate 17.9 H* Vent Mode Mechanical Rate FiO2 100.0 Tidal Volume PEEP Inspiratory BiPAP Expiratory BiPAP Crit Value Called To Dr artis Crit Value Called By Nicole norman drill presser Crit Value Read Back Y Blood Gas Notified Time 1458 Potassium Carbon Dioxide Anion Gap BUN Creatinine Est GFR ( Amer) Est GFR (Non-Af Amer) POC Glucose (mg/dL) 152 H Random Glucose Calcium Phosphorus Magnesium Total Bilirubin AST ALT Alkaline Phosphatase Troponin I Total Protein Albumin Globulin Albumin/Globulin Ratio Arterial Blood Potassium 4.8 Influenza Typ A,B (EIA) Blood Type Antibody Screen 04/25/18 04/25/18 04/25/18 15:13 15:41 15:41 WBC 57.9 H* RBC 3.40 L Hgb 8.3 L D Hct 28.8 L MCV 84.7 D MCH 24.6 L MCHC 29.0 L RDW 16.1 H Plt Count 103 L D MPV 9.0 Neut % (Auto) Lymph % (Auto) Starr % (Auto) Eos % (Auto) Baso % (Auto) Neut # (Auto) Lymph # (Auto) Starr # (Auto) Eos # (Auto) Baso # (Auto) Neutrophils % (Manual) Band Neutrophils % Lymphocytes % (Manual) Reactive Lymphs % Monocytes % (Manual) Metamyelocytes % Myelocytes % Differential Comment Platelet Estimate Large Platelets Anisocytosis (manual) Flynn Cells Smear Path Review PT INR APTT D-Dimer, Quantitative Puncture Site Line pCO2 49 H pO2 56 L HCO3 5.1 L* ABG pH 6.88 L* ABG Total CO2 10.7 L ABG O2 Saturation 80.0 L ABG Base Excess -24.1 L Brandon Test Na ABG Potassium 4.8 A-a O2 Difference 596.0 Respiratory Index 10.6 Sodium 138.0 141 Chloride 102.0 102 Glucose 141 H Lactate 18.3 H* Vent Mode A/c Mechanical Rate FiO2 100.0 Tidal Volume PEEP Inspiratory BiPAP Expiratory BiPAP Crit Value Called To Dr artis Crit Value Called By Nicole turner drill presser Crit Value Read Back Y Blood Gas Notified Time 1518 Potassium 5.3 H Carbon Dioxide 12 L Anion Gap 33 H BUN 21 H Creatinine 2.1 H Est GFR ( Amer) 28 Est GFR (Non-Af Amer) 23 POC Glucose (mg/dL) Random Glucose 162 H Calcium 9.9 Phosphorus 10.7 H Magnesium 2.1 Total Bilirubin 0.3 AST ALT 507 H D Alkaline Phosphatase 77 Troponin I Total Protein 2.5 L Albumin 1.2 L D Globulin 1.3 L Albumin/Globulin Ratio 0.9 L Arterial Blood Potassium 4.8 Influenza Typ A,B (EIA) Blood Type Antibody Screen 04/25/18 16:15 WBC RBC Hgb Hct MCV MCH MCHC RDW Plt Count MPV Neut % (Auto) Lymph % (Auto) Starr % (Auto) Eos % (Auto) Baso % (Auto) Neut # (Auto) Lymph # (Auto) Starr # (Auto) Eos # (Auto) Baso # (Auto) Neutrophils % (Manual) Band Neutrophils % Lymphocytes % (Manual) Reactive Lymphs % Monocytes % (Manual) Metamyelocytes % Myelocytes % Differential Comment Platelet Estimate Large Platelets Anisocytosis (manual) Flynn Cells Smear Path Review PT INR APTT D-Dimer, Quantitative Puncture Site Line pCO2 45 pO2 67 L HCO3 5.6 L* ABG pH 6.90 L* ABG Total CO2 10.2 L ABG O2 Saturation 90.1 L ABG Base Excess -23.9 L Brandon Test Na ABG Potassium 4.9 A-a O2 Difference 590.0 Respiratory Index 8.8 Sodium 136.0 Chloride 103.0 Glucose 170 H Lactate 17.4 H* Vent Mode A/c Mechanical Rate FiO2 100.0 Tidal Volume PEEP Inspiratory BiPAP Expiratory BiPAP Crit Value Called To Dr artis Crit Value Called By Nicole turner drill presser Crit Value Read Back Y Blood Gas Notified Time 1622 Potassium Carbon Dioxide Anion Gap BUN Creatinine Est GFR ( Amer) Est GFR (Non-Af Amer) POC Glucose (mg/dL) Random Glucose Calcium Phosphorus Magnesium Total Bilirubin AST ALT Alkaline Phosphatase Troponin I Total Protein Albumin Globulin Albumin/Globulin Ratio Arterial Blood Potassium 4.9 Influenza Typ A,B (EIA) Blood Type Antibody Screen EKG/Cardiology Studies: Cardiology / EKG Studies 04/24/18 17:07 EKG [ELECTROCARDIOGRAM] Stat Comment: Mode Of Transportation: Reason For Exam: ?seizure 04/25/18 03:55 EKG [ELECTROCARDIOGRAM] Stat Comment: Mode Of Transportation: Reason For Exam: SOB Isolation: Contact Critical Care Progress Note - Nutrition Nutrition: Nutrition Category Date Time Status NPO Diet [DIET] Diets 04/25/18 Breakfast Active Attending/Attestation - Attestation I have personally seen and examined this patient.: Yes I have fully participated in the care of the patient.: Yes I have reviewed all pertinent clinical information: Yes Notes (Text): 04/25/18 13:59 patient seen and examined Chart reviewed and previous events noted On ventilatory support, tachypneic and tachycardic Started on pressors for hypotension Status post fluid resuscitation/albumin On IV antibiotics to OR for exp lap and possible colectomy Prognosis poor Continue bicarbonate drip
[2018-04-25 11:22] LABS: BANDS 14 % (0-2); LYMPHOCYTE 6 % (20-40); METAMYELOCYTE 3 % (0-0); MONOCYTE 5 % (0-10); NEUTROPHIL 71 % (50-75); REACTIVE LYMPHOCYTES 1 % (0-0); TOTAL CELLS COUNTED 100
[2018-04-25 11:23] LABS: ANISOCYTOSIS SLIGHT; BURR CELLS MODERATE; LARGE PLATELETS PRESENT; PLATELET ESTIMATE NORMAL (NORMAL)
[2018-04-25] MEDS ORDERED: HYDROmorphone 0.5 mg/0.5 ml ISec IVP ONE (11:30)
--- NOTE | 2018-04-25 12:24 | CP.PCM.PN ---
Subjective - Date & Time of Evaluation Date of Evaluation: 04/25/18 Time of Evaluation: 09:00 - Subjective Subjective: 67 yr old female PMH HTN, Lower back pain, and Colon Cancer who presented to [facility] on 04/23 complaining of 2 weeks of nausea vomiting and diarrhea following treatment with Merrem for a postoperative infection. She recently had a Lumbar fusion March 2018 at [facility] and had been on IV antibiotics for a postoperative skin infection. Yesterday the patient had an MANAGER [employer] called and it was determined that she had had a vagal episode. This morning at approximately 0400 an additional MANAGER [employer] was called d/t hypotension lethargy and respiratory distress. Lowest recorded BP 74/52. Patient was intubated, sedated on precedex and transferred to the ICU. Her abg at that time revealed a pH of 7.03 bicarb of 6 and a lactate of 12.5. Bicarb was given and repeat abg at approximately 0500 revealed pH of 7.12 bicarb 9.2 and lactate 8.5. Additionally her WBC has increased from 27.7 to 70 this morning. Blood pressure have been within normal range and stable, heart rate mildly tachycardic and no additional febrile incidents since a single temp of 101.4 at approximately 1400 on 04/23. PMH: HTN, chronic low back pain, colon cancer PSH: laparoscopic cholecystectomy (04/10/2013), vascular catheter irrigation () Objective - Vital Signs/Intake and Output Vital Signs (last 24 hours): Temp Pulse Resp BP Pulse Ox 99.1 F 118 H 30 H 101/69 80 L 04/25/18 08:00 04/25/18 10:41 04/25/18 10:41 04/25/18 10:42 04/25/18 10:41 Intake and Output: 04/25/18 04/25/18 06:59 18:59 Intake Total 3200 2131.2 Output Total 0 0 Balance 3200 2131.2 - Medications Medications: Current Medications Acetaminophen (Tylenol 325mg Tab) 650 mg PO Q8 PRN PRN Reason: fever Aspirin (Aspirin Chewable) 81 mg PO DAILY [facility] Last Admin: 04/25/18 10:18 Dose: Not Given Enoxaparin Sodium (Lovenox) 40 mg SC DAILY [facility] Last Admin: 04/24/18 09:29 Dose: 40 mg Ergocalciferol (Drisdol 50,000 Intl Units Cap) 1 cap PO QWK [facility] Last Admin: 04/24/18 09:29 Dose: 1 cap Dexmedetomidine HCl 200 mcg/ (Sodium Chloride) 50 mls @ 3.74 mls/hr IV TITR PRN ; Protocol; 0.2 MCG/KG/HR PRN Reason: Agitation Last Admin: 04/25/18 07:40 Dose: 0.2 mcg/kg/hr, 3.74 mls/hr Meropenem 500 mg/ Sodium (Chloride) 100 mls @ 100 mls/hr IVPB Q8H OSMAR PRN Reason: Protocol Last Admin: 04/25/18 07:42 Dose: 100 mls/hr Metronidazole (Flagyl) 500 mg in 100 mls @ 100 mls/hr IVPB Q8H [facility] PRN Reason: Protocol Last Admin: 04/25/18 08:38 Dose: 100 mls/hr Sodium Bicarbonate 100 meq/ (Sodium Chloride) 1,100 mls @ 75 mls/hr IV .[id number] [facility] Last Admin: 04/25/18 07:57 Dose: 75 mls/hr Lactated Ringer's (Lactated Ringer's) 1,000 mls @ 125 mls/hr IV .Q8H [facility] Last Admin: 04/25/18 08:36 Dose: 125 mls/hr Norepinephrine Bitartrate 8 mg (/ Dextrose) 258 mls @ 7.74 mls/hr IV .Q24H PRN ; Protocol; 4 MCG/MIN PRN Reason: TITRATE PER MD ORDER Last Admin: 04/25/18 09:37 Dose: 4 mcg/min, 7.74 mls/hr Vasopressin 40 units/ Dextrose 42 mls @ 1.89 mls/hr IV .[id number] OSMAR; 0.03 UNITS /MIN PRN Reason: Protocol Ondansetron HCl (Zofran Inj) 4 mg IVP Q8 PRN PRN Reason: Nausea/Vomiting Last Admin: 04/24/18 13:09 Dose: 4 mg Vancomycin HCl (Vancocin (Oral Or Rectal Use)) 500 mg PO QID O[facility] PRN Reason: Protocol Last Admin: 04/25/18 10:18 Dose: Not Given - Labs Labs: 04/25/18 10:42 04/25/18 04:19 PT 15.2 SECONDS (9.7-12.2) H 04/25/18 10:42 INR 1.4 04/25/18 10:42 APTT 36 SECONDS (21-34) H 04/25/18 10:42 - Constitutional Appears: Toxic - Head Exam Head Exam: NORMOCEPHALIC Additional comments: intubated - Eye Exam Eye Exam: PERRL - ENT Exam ENT Exam: Mucous Membranes Dry - Neck Exam Neck Exam: absent: Lymphadenopathy - Respiratory Exam Respiratory Exam: Decreased Breath Sounds - Cardiovascular Exam Cardiovascular Exam: REGULAR RHYTHM - GI/Abdominal Exam GI & Abdominal Exam: Distended - Rectal Exam Rectal Exam: Deferred - Exam Exam: NORMAL INSPECTION - Extremities Exam Extremities Exam: Pedal Edema - Back Exam Back Exam: absent: CVA tenderness (L), CVA tenderness (R) - Neurological Exam Neurological Exam: Altered Assessment and Plan - Assessment and Plan (Free Text) Assessment: severe sepsis septic shock colitis hx of recent surgery and post op antibiotics for skin infection at [facility] r/o c diff related toxic magacolon hx colon CA poor prognosis surgery on board flluid resuscitation and antibiotics
[2018-04-25] MEDS ORDERED: Gentamicin 240 MG in Sodium Chloride 0.9% 100 ML IVPB ONE (12:29)
[2018-04-25] MEDS ORDERED: Vasopressin 40 UNITS in Dextrose 5% In Water 40 ML IV SCH (12:30)
[2018-04-25] MEDS ORDERED: Midazolam 2 MG/2 ML VIAL ONE ×2 (13:21→16:32)
[2018-04-25] MEDS ORDERED: Glucagon Recombinant 1 mg Inj IM PRN (13:33)
[2018-04-25] MEDS ORDERED: Dextrose 50% SYRINGE Inj (50 ml) IV PRN (13:33)
[2018-04-25] MEDS: Phenylephrine 30 MG in Sodium Chloride 0.9% 250 ML IV PRN ×2 (13:35→22:25)
[2018-04-25 14:58] LABS: ARTERIAL BLOOD GAS HCO3 36.6 mmol/L (21-28); ARTERIAL BLOOD GAS O2 SAT 64.4 % (95-98); ARTERIAL BLOOD GAS PCO2 94 mm/Hg (35-45); ARTERIAL BLOOD GAS PH 7.31 (7.35-7.45); ARTERIAL BLOOD GAS PO2 35 mm/Hg (80-100); ARTERIAL BLOOD GAS TCO2 50.2 mmol/L (22-28)
[2018-04-25 15:17] LABS: ARTERIAL BLOOD GAS HCO3 5.1 mmol/L (21-28); ARTERIAL BLOOD GAS PCO2 49 mm/Hg (35-45); ARTERIAL BLOOD GAS PH 6.88 (7.35-7.45); ARTERIAL BLOOD GAS PO2 56 mm/Hg (80-100); ARTERIAL BLOOD GAS TCO2 10.7 mmol/L (22-28)
[2018-04-25] MEDS ORDERED: Collagen Hemostat Powder ONE (15:56)
[2018-04-25] MEDS ORDERED: EPINEPHrine- 1 MG in Sodium Chloride 0.9% 250 ML IV PRN (16:00)
[2018-04-25 16:01] LABS: MEAN CORPUSCULAR HEMOGLOBIN 24.6 pg (27.0-31.0); RBC 3.4 Mil/uL (3.80-5.20); RED CELL DISTRIBUTION WIDTH 16.1 % (11.5-14.5)
[2018-04-25 16:07] LABS: HEMOGLOBIN 8.3 g/dL (11.0-16.0); MEAN CELL VOLUME 84.7 fL (81.0-99.0)
[2018-04-25 16:08] LABS: WHITE BLOOD COUNT 57.9 K/uL (4.8-10.8)
[2018-04-25 16:22] LABS: ARTERIAL BLOOD GAS HCO3 5.6 mmol/L (21-28); ARTERIAL BLOOD GAS O2 SAT 90.1 % (95-98); ARTERIAL BLOOD GAS PCO2 45 mm/Hg (35-45); ARTERIAL BLOOD GAS PO2 67 mm/Hg (80-100); ARTERIAL BLOOD GAS TCO2 10.2 mmol/L (22-28)
[2018-04-25] MEDS ORDERED: Calcium Chloride 1000 mg/10 ml Syringe IV ONE (16:29)
[2018-04-25 16:36] LABS: ALB/GLOB RATIO 0.9 (1.0-2.1); ALBUMIN 1.2 g/dL (3.5-5.0); CALCIUM 9.9 mg/dl (8.6-10.4)
--- NOTE | 2018-04-25 17:08 | PCM.SURG1 ---
Surgeon's Initial Post Op Note - Surgeon's Notes Surgeon: Radha Patent Clerk: Vanessa PGY4, Demetrius PGY4 Pre-Operative Diagnosis: Toxic Colitis Operative Findings: Ascites, pancolitis Post-Operative Diagnosis: same Operation Performed: Exploratory laparotomy with subtotal colectomy and end ileostomy Specimen/Specimens Removed: colon Estimated Blood Loss: EBL {In ML}: 500 Blood Products Given: PRBC (2U PRBC, 4L cyrstalloid) Drains Used: Cristian Post-Op Condition: Critical Date of Surgery/Procedure: 04/25/18 Time of Surgery/Procedure: 17:08
[2018-04-25 17:27] LABS: ARTERIAL BLOOD GAS HCO3 9.7 mmol/L (21-28); ARTERIAL BLOOD GAS O2 SAT 99.5 % (95-98); ARTERIAL BLOOD GAS PCO2 26 mm/Hg (35-45); ARTERIAL BLOOD GAS PH 7.12 (7.35-7.45); ARTERIAL BLOOD GAS PO2 90 mm/Hg (80-100); ARTERIAL BLOOD GAS TCO2 9.3 mmol/L (22-28)
--- NOTE | 2018-04-25 18:09 | RAD ---
Date of service: 04/25/2018 HISTORY: post-op comparison COMPARISON: April 25, 2018. Time of the most recent examination: 08:11. FINDINGS: LUNGS: Progressive consolidative changes right upper lobe. PLEURA: No significant pleural effusion identified, no pneumothorax apparent. CARDIOVASCULAR: Normal. OSSEOUS STRUCTURES: No significant abnormalities. VISUALIZED UPPER ABDOMEN: Normal. OTHER FINDINGS: Stable, satisfactory position ventilatory, vascular and nasogastric apparatus. IMPRESSION: Worsening consolidative change/infiltrate right upper lobe. Otherwise no interval change.
[2018-04-25 18:22] LABS: SQUAMOUS EPITHIAL 1 /hpf (0-5); URINE BACTERIA RARE (<OCC); URINE BILIRUBIN NEGATIVE (NEGATIVE); URINE BLOOD 2+ (NEGATIVE); URINE CLARITY Hazy (Clear); URINE COLOR Yellow (YELLOW); URINE GLUCOSE (UA) 1+ mg/dL (Normal); URINE LEUKOCYTE ESTERASE 1+ Leu/uL (Negative); URINE PROTEIN 2+ mg/dL (NEGATIVE); URINE UROBILINOGEN NORMAL mg/dL (0.2-1.0)
[2018-04-25 18:27] LABS: MEAN CELL VOLUME 84.6 fL (81.0-99.0); MEAN CORPUSCULAR HEMOGLOBIN 26.2 pg (27.0-31.0); MEAN CORPUSCULAR HGB CONC 30.9 g/dL (33.0-37.0); MEAN PLATELET VOLUME 9.2 fL (7.2-11.7); RBC 3.96 Mil/uL (3.80-5.20); RED CELL DISTRIBUTION WIDTH 15.9 % (11.5-14.5)
[2018-04-25 18:32] LABS: HEMOGLOBIN 10.4 g/dL (11.0-16.0); WHITE BLOOD COUNT 55.8 K/uL (4.8-10.8)
[2018-04-25 18:44] LABS: ALB/GLOB RATIO 0.9 (1.0-2.1); ALBUMIN 1.2 g/dL (3.5-5.0); CALCIUM 6.1 mg/dl (8.6-10.4)
[2018-04-25] MEDS: (Novolin R) Insulin Human Regular 100 units/ml vial SC SCH (19:19)
[2018-04-25] MEDS: EPINEPHrine- 4 MG in Sodium Chloride 0.9% 1,000 ML IV PRN (20:34)
[2018-04-25] MEDS ORDERED: Lactated Ringer's 1,000 ML IV ONE (20:39)
--- NOTE | 2018-04-25 20:44 | CP.PCM.PN ---
Subjective - Date & Time of Evaluation Date of Evaluation: 04/25/18 Time of Evaluation: 12:40 - Subjective Subjective: clinically same Objective - Vital Signs/Intake and Output Vital Signs (last 24 hours): Temp Pulse Resp BP Pulse Ox 97.8 F 111 H 27 H 80/49 L 80 L 04/25/18 17:10 04/25/18 19:31 04/25/18 19:31 04/25/18 19:31 04/25/18 19:31 Intake and Output: 04/25/18 04/26/18 18:59 06:59 Intake Total 6829.6 1015.9 Output Total 185 5 Balance 6644.6 1010.9 - Medications Medications: Current Medications Acetaminophen (Tylenol 325mg Tab) 650 mg PO Q8 PRN PRN Reason: fever Aspirin (Aspirin Chewable) 81 mg PO DAILY [facility] Last Admin: 04/25/18 10:18 Dose: Not Given Dextrose (Glutose 15) 0 gm PO ONCE PRN; Protocol PRN Reason: Hypoglycemia Protocol Dextrose (Dextrose 50% Inj) 0 ml IV STAT PRN; Protocol PRN Reason: Hypoglycemia Protocol Ergocalciferol (Drisdol 50,000 Intl Units Cap) 1 cap PO QWK [facility] Last Admin: 04/24/18 09:29 Dose: 1 cap Famotidine (Pepcid) 20 mg IVP DAILY [facility] Glucagon (Glucagen Diagnostic Kit) 0 mg IM STAT PRN; Protocol PRN Reason: Hypoglycemia Protocol Hydrocortisone Sodium Succinate (Solu-Cortef) 100 mg IV Q8H [facility] Last Admin: 04/25/18 17:42 Dose: 100 mg Dexmedetomidine HCl 200 mcg/ (Sodium Chloride) 50 mls @ 3.74 mls/hr IV TITR PRN ; Protocol; 0.2 MCG/KG/HR PRN Reason: Agitation Last Titration: 04/25/18 13:00 Dose: 0 mcg/kg/hr, 0 mls/hr Meropenem 500 mg/ Sodium (Chloride) 100 mls @ 100 mls/hr IVPB Q8H OSMAR PRN Reason: Protocol Last Admin: 04/25/18 14:30 Dose: 100 mls Metronidazole (Flagyl) 500 mg in 100 mls @ 100 mls/hr IVPB Q8H O[facility] PRN Reason: Protocol Last Admin: 04/25/18 17:39 Dose: Not Given Sodium Bicarbonate 100 meq/ (Sodium Chloride) 1,100 mls @ 75 mls/hr IV .[id number] [facility] Last Admin: 04/25/18 17:36 Dose: 75 mls/hr Lactated Ringer's (Lactated Ringer's) 1,000 mls @ 125 mls/hr IV .Q8H [facility] Last Admin: 04/25/18 17:40 Dose: 125 mls/hr Norepinephrine Bitartrate 8 mg (/ Dextrose) 258 mls @ 7.74 mls/hr IV .Q24H PRN ; Protocol; 4 MCG/MIN PRN Reason: TITRATE PER MD ORDER Last Titration: 04/25/18 20:00 Dose: 25 mcg/min, 48.37 mls/hr Phenylephrine HCl 30 mg/ (Sodium Chloride) 253 mls @ 10.12 mls/hr IV .Q24H PRN ; Protocol; 20 MCG/MIN PRN Reason: TITRATE PER MD ORDER Last Titration: 04/25/18 19:20 Dose: 180 mcg/min, 91.08 mls/hr Dextrose (Dextrose 5% In Water 1000 Ml) 1,000 mls @ 0 mls/hr IV .Q0M PRN; Protocol; Per Protocol PRN Reason: Hypoglycemia Protocol Vasopressin 40 units/ Sodium (Chloride) 40 mls @ 0.6 mls/hr IV .Q24H OSMAR; 0.01 UNITS/MIN PRN Reason: Protocol Last Titration: 04/25/18 18:00 Dose: 0.04 units/min, 2.4 mls/hr Epinephrine HCl 4 mg/ Sodium (Chloride) 1,004 mls @ 15.06 mls/hr IV .Q24H PRN; Protocol; 1 MCG/MIN PRN Reason: TITRATE PER MD ORDER Last Admin: 04/25/18 20:34 Dose: 1 mcg/min, 15.06 mls/hr Insulin Human Regular (Novolin R) 0 unit SC Q6 [facility] PRN Reason: Protocol Last Admin: 04/25/18 19:19 Dose: Not Given Ondansetron HCl (Zofran Inj) 4 mg IVP Q8 PRN PRN Reason: Nausea/Vomiting Last Admin: 04/24/18 13:09 Dose: 4 mg Vancomycin HCl (Vancocin (Oral Or Rectal Use)) 500 mg PO QID [facility] PRN Reason: Protocol Last Admin: 04/25/18 18:57 Dose: Not Given - Labs Labs: 04/25/18 18:12 04/25/18 18:12 PT 15.2 SECONDS (9.7-12.2) H 04/25/18 10:42 INR 1.4 04/25/18 10:42 APTT 36 SECONDS (21-34) H 04/25/18 10:42 - Constitutional Appears: Well - Head Exam Head Exam: ATRAUMATIC, NORMAL INSPECTION, NORMOCEPHALIC - Eye Exam Eye Exam: EOMI, Normal appearance, PERRL Pupil Exam: NORMAL ACCOMODATION, PERRL - ENT Exam ENT Exam: Mucous Membranes Moist, Normal Exam - Neck Exam Neck Exam: Full ROM, Normal Inspection. absent: Lymphadenopathy - Respiratory Exam Respiratory Exam: Decreased Breath Sounds - Cardiovascular Exam Cardiovascular Exam: REGULAR RHYTHM, +S1, +S2 - GI/Abdominal Exam GI & Abdominal Exam: Soft, Diminished Bowel Sounds - Rectal Exam Rectal Exam: Deferred
[2018-04-25 21:23] LABS: ARTERIAL BLOOD GAS HCO3 5.7 mmol/L (21-28); ARTERIAL BLOOD GAS O2 SAT 95.6 % (95-98); ARTERIAL BLOOD GAS PCO2 19 mm/Hg (35-45); ARTERIAL BLOOD GAS PH 7.03 (7.35-7.45); ARTERIAL BLOOD GAS PO2 75 mm/Hg (80-100); ARTERIAL BLOOD GAS TCO2 5.6 mmol/L (22-28)
[2018-04-25 21:55] LABS: PROTHROMBIN TIME 54.9 SECONDS (9.7-12.2)
[2018-04-25] MEDS ORDERED: Sodium Bicarbonate 8.4% 150 MEQ in Dextrose 5% In Water 1,000 ML IV SCH (22:15)
[2018-04-26] MEDS: (Novolin R) Insulin Human Regular 100 units/ml vial SC SCH ×2 (00:08→06:00)
[2018-04-26 00:58] LABS: BASO # 0.6 K/uL (0.0-0.2); BASO % 0.9 % (0.0-2.0); EOS # 0.6 K/uL (0.0-0.7); LYMPH # 8.7 K/uL (1.0-4.3); LYMPH % 14.4 % (20.0-40.0); MEAN CORPUSCULAR HEMOGLOBIN 26.2 pg (27.0-31.0); MEAN CORPUSCULAR HGB CONC 30.4 g/dL (33.0-37.0); MEAN PLATELET VOLUME 12.2 fL (7.2-11.7); MONO # 1.2 K/uL (0.0-0.8); MONO % 1.9 % (0.0-10.0); NEUT # 49.7 K/uL (1.8-7.0); NEUT % 81.8 % (50.0-75.0); NRBC % 1.9 % (0.0-2.0); RBC 3.23 Mil/uL (3.80-5.20); RED CELL DISTRIBUTION WIDTH 16.2 % (11.5-14.5)
[2018-04-26 00:59] LABS: PLATELET COUNT 70 K/uL (130-400)
[2018-04-26 01:01] LABS: HEMOGLOBIN 8.4 g/dL (11.0-16.0); WHITE BLOOD COUNT 60.8 K/uL (4.8-10.8)
[2018-04-26] MEDS: Phenylephrine 30 MG in Sodium Chloride 0.9% 250 ML IV PRN ×2 (01:17→04:15)
[2018-04-26] MEDS ORDERED: Sodium Chloride 0.9% 1,000 ML IV ONE ×2 (01:18→04:16)
[2018-04-26 01:37] LABS: BASOPHIL 1 % (0-2); LYMPHOCYTE 16 % (20-40); METAMYELOCYTE 7 % (0-0); MONOCYTE 8 % (0-10); MYELOCYTE 1 % (0-0); NEUTROPHIL 55 % (50-75); NUCLEATED RED BLOOD CELL 3 % (0-0); PLATELET ESTIMATE DECREASED (NORMAL); TOTAL CELLS COUNTED 100
[2018-04-26 01:38] LABS: BANDS 12 % (0-2)
[2018-04-26 02:18] LABS: ALB/GLOB RATIO 0.9 (1.0-2.1); CALCIUM 5.7 mg/dl (8.6-10.4)
[2018-04-26] MEDS: EPINEPHrine- 4 MG in Sodium Chloride 0.9% 1,000 ML IV PRN (02:43)
--- NOTE | 2018-04-26 03:23 | OP ---
Copied To: Ang Garcia Jr., MD Attending MD: Ang Garcia Jr., MD PROCEDURE DATE: 04/25/2018 PREOPERATIVE DIAGNOSIS: Toxic colitis. PROCEDURE CARRIED OUT: Total abdominal colectomy. SURGEON: Ang Garcia Jr., MD ASSISTANTS: Dago Mendez DO and Maritza So DO, residents. ANESTHESIOLOGIST: Chantal Leon CRNA INDICATION: The patient is a 67-year-old woman, admitted to the hospital on 04/23/2018 who was seen today for evaluation of abdominal pain and elevated white count. On examination, she was intubated. In the intensive care unit, she had very low pH and in a very critical condition. Previous imaging that had been on 04/23/2018 was reviewed, and it did not show perforation, but was highly suspicious of colitis. Because of the patient's deterioration in her condition, I recommended that the patient undergo emergency exploration. In addition, she has recently had back surgery, and she has also been on antibiotics for an infection, but the details of these were not available to me. OPERATIVE FINDINGS: 1. There was no perforation. 2. There was evidence of previous colonic surgery, but I was unable to completely visualize the anastomosis. 3. A subtotal colectomy was carried out, meaning the entire abdominal colon was removed down to just above the peritoneal reflection. There were numerous adhesions from previous surgery. There was some bleeding from the mesenteric bed. There was some bleeding from a tear on the surface of the spleen, but not any deep tear. Blood loss for the procedure was 500 mL. It was difficult to give an exact amount because there was so much ascitic fluid. The colon was mobilized from the cecum all the way over to the rectum, dividing numerous adhesions from previous surgery. After these have been done, the mesocolon was divided using a LigaSure type device, and the colon was removed. There was bleeding from the splenic flexure area. A surface tear was on the capsule of the spleen, but no evidence of any deep injury to the spleen and secondly from the area adjacent to the duodenum where numerous sutures had to be placed. At the end of the procedure, we brought down an ileostomy in the right lower quadrant in a Ellie fashion. Blood loss was as mentioned. After the abdomen was explored, the procedure was terminated. The wound was partially closed with skin clips. After closing the fascia, a drain was left in the left upper quadrant, and the ileostomy was matured. The operation was more difficult due to the numerous intra-abdominal adhesions from previous abdominal surgery and the emergent nature of the surgery. Cultures were taken. Ang Garcia Jr., MD
[2018-04-26 05:49] LABS: ARTERIAL BLOOD GAS O2 SAT 94.2 % (95-98); ARTERIAL BLOOD GAS PCO2 22 mm/Hg (35-45); ARTERIAL BLOOD GAS PH < 6.80 (7.35-7.45); ARTERIAL BLOOD GAS PO2 72 mm/Hg (80-100)
[2018-04-26 06:27] LABS: MEAN CELL VOLUME 92.8 fL (81.0-99.0); MEAN CORPUSCULAR HEMOGLOBIN 25.8 pg (27.0-31.0); MEAN CORPUSCULAR HGB CONC 27.8 g/dL (33.0-37.0); MEAN PLATELET VOLUME 13.1 fL (7.2-11.7); PLATELET COUNT 34 K/uL (130-400); RED CELL DISTRIBUTION WIDTH 17.4 % (11.5-14.5)
[2018-04-26 06:31] LABS: HEMOGLOBIN 5.7 g/dL (11.0-16.0)
[2018-04-26] MEDS ORDERED: Sodium Bicarbonate (8.4%) 50 Meq Syringe IVP ONE (06:50)
[2018-04-26] MEDS: Meropenem 500 MG in Sodium Chloride 0.9% 100 ML IVPB SCH (06:58)
[2018-04-26 07:23] VITALS: TEMP 93.2
[2018-04-26 07:28] LABS: CALCIUM 5.2 mg/dl (8.6-10.4)
[2018-04-26] MEDS ORDERED: Calcium Chloride 1000 mg/10 ml Syringe IV ONE ×2 (07:30→09:00)
[2018-04-26] MEDS ORDERED: Sodium Bicarbonate (8.4%) 50 Meq Syringe ONE ×2 (07:30→07:35)
--- NOTE | 2018-04-26 07:59 | CP.CCUPN ---
<GeorgeChance - Last Filed: 04/26/18 08:05> CCU Subjective - Physician Review Subjective (Free Text): Chance Vazquez DO PGY-1, Code Blue note Pt was noted to be without pulse by nurse. Code soo called at 06:57. Pt noted to be in PEA. Pt is at maximum rate of levophed gtt, phenylephrine gtt, vasopressin gtt, epinephrine gtt. Pt is on bicarb gtt. Pt was managed as per ACLS protocol (see code sheet), with ROSC achieved at 07:04. CCU Objective - Vital Signs / Intake & Output Vital Signs (Last 4 hours): Vital Signs Temp Pulse Resp BP 04/26/18 07:20 93.2 F L 91 H 30 H 71/27 L 04/26/18 06:01 68 0 L 68/38 L 04/26/18 06:00 94.3 F L 04/26/18 05:32 72 5 L 81/40 L 04/26/18 04:33 81 30 H 78/41 L 04/26/18 04:15 85 72/34 L Intake and Output (Last 8hrs): Intake & Output 04/25/18 04/26/18 04/26/18 22:59 06:59 14:59 Intake Total 4404.7 7640.2 0 Output Total 550 1583 Balance 3854.7 6057.2 0 Weight 75.432 kg Intake: IV 515 1764 Intake, IV Amount 2814.7 5876.2 Right Distal Port Femoral 455.0 2673 Right Internal Jugular 400 Right Medial Port Femoral 14.4 19.2 Right Medial Port Femoral 450 1200 2 Right Proximal Port 495 720 Femoral Right Proximal Port 135.3 464 Femoral 2 Right Subclavian 625 800 Rt SC Y-port 240 Blood Product 975 0 Red Blood Cells Cpd As1 325 Lr Unit [id number] Red Blood Cells Cpd As1 0 Lr Unit [id number] Other 100 Red Blood Cells Cpd As1 100 Lr Unit [id number] Output: Drainage 480 1580 Left Abdomen 480 1580 Urine 70 3 Urethral ([place]) 20 3 Other: # Bowel Movements 1 - Physical Exam Lower Extremity: Negative for: NORMAL PULSES (bilateral DPs not obtainable by dopplars prior to femoral TLC placement, (+) popliteal and femoral pulses on palpation) - Medications Active Medications: Active Medications Generic Name Dose Route Start Last Admin Trade Name Freq PRN Reason Stop Dose Admin Acetaminophen 650 mg 04/23/18 17:44 Tylenol 325mg Tab PO Q8 PRN fever Aspirin 81 mg 04/24/18 10:00 04/25/18 10:18 Aspirin Chewable PO Not Given DAILY OSMAR Dextrose 0 gm 04/25/18 13:33 Glutose 15 PO ONCE PRN Hypoglycemia Protocol Protocol Dextrose 0 ml 04/25/18 13:33 04/25/18 22:01 Dextrose 50% Inj IV 50 ml STAT PRN Administration Hypoglycemia Protocol Protocol Ergocalciferol 1 cap 04/24/18 10:00 04/24/18 09:29 Drisdol 50,000 Intl Units Cap PO 1 cap QWK OSMAR Administration Famotidine 20 mg 04/26/18 10:00 Pepcid IVP DAILY OSMAR Glucagon 0 mg 04/25/18 13:33 Glucagen Diagnostic Kit IM STAT PRN Hypoglycemia Protocol Protocol Hydrocortisone Sodium Succinate 100 mg 04/25/18 17:00 04/26/18 02:00 Solu-Cortef IV 100 mg Q8H OSMAR Administration Dexmedetomidine HCl 200 mcg/ 50 mls @ 3.74 mls/hr 04/25/18 06:07 04/25/18 13: 00 Sodium Chloride IV 0 mcg/kg/hr TITR PRN 0 mls/hr Agitation Titration Protocol 0.2 MCG/KG/HR Meropenem 500 mg/ Sodium 100 mls @ 100 mls/hr 04/25/18 06:30 04/25/18 22:30 Chloride IVPB 100 mls/hr Q8H OSMAR Administration Protocol Metronidazole 500 mg in 100 mls @ 100 mls/hr 04/25/18 07:30 04/25/18 23:57 Flagyl IVPB 100 mls/hr Q8H OSMAR Administration Protocol Lactated Ringer's 1,000 mls @ 125 mls/hr 04/25/18 07:58 04/25/18 23:59 Lactated Ringer's IV Not Given .Q8H OSMAR Norepinephrine Bitartrate 8 mg 258 mls @ 7.74 mls/hr 04/25/18 09:25 04/26/18 02:41 / Dextrose IV 30 mcg/min .Q24H PRN 58.05 mls/hr TITRATE PER MD ORDER Administration Protocol 4 MCG/MIN Phenylephrine HCl 30 mg/ 253 mls @ 10.12 mls/hr 04/25/18 12:35 04/26/18 04:15 Sodium Chloride IV 180 mcg/min .Q24H PRN 91.08 mls/hr TITRATE PER MD ORDER Administration Protocol 20 MCG/MIN Dextrose 1,000 mls @ 0 mls/hr 04/25/18 13:33 Dextrose 5% In Water 1000 Ml IV .Q0M PRN Hypoglycemia Protocol Protocol Per Protocol Vasopressin 40 units/ Sodium 40 mls @ 0.6 mls/hr 04/25/18 18:15 04/25/18 18: 00 Chloride IV 0.04 units/min .Q24H OSMAR 2.4 mls/hr Protocol Titration 0.01 UNITS/MIN Epinephrine HCl 4 mg/ Sodium 1,004 mls @ 15.06 mls/hr 04/25/18 19:45 02:43 Chloride IV 10 mcg/min .Q24H PRN 150.6 mls/hr TITRATE PER MD ORDER Administration Protocol 1 MCG/MIN Sodium Bicarbonate 150 meq/ 1,150 mls @ 100 mls/hr 04/25/18 22:15 04/25/18 22 :40 Dextrose IV 100 mls/hr .[id number] OSMAR Administration Insulin Human Regular 0 unit 04/25/18 18:00 04/26/18 00:08 Novolin R SC Not Given Q6 [facility] Protocol Ondansetron HCl 4 mg 04/23/18 17:42 04/24/18 13:09 Zofran Inj IVP 4 mg Q8 PRN Administration Nausea/Vomiting Vancomycin HCl 500 mg 04/24/18 14:00 04/25/18 22:00 Vancocin (Oral Or Rectal Use) PO 500 mg QID OSMAR Administration Protocol - Patient Studies Lab Studies: Microbiology Studies 04/25/18 16:44 Gram Stain - Final Abdomen 04/23/18 09:30 Blood Culture - Preliminary Blood NO GROWTH AFTER 48 HOURS 04/23/18 09:00 Blood Culture - Preliminary Blood NO GROWTH AFTER 48 HOURS Lab Studies 04/26/18 04/26/18 04/26/18 Range/Units 06:22 06:22 06:04 WBC 52.0 H* (4.8-10.8) K/uL RBC 2.20 L (3.80-5.20) Mil/uL Hgb 5.7 L* D (11.0-16.0) g/dL Hct 20.4 L (34.0-47.0) % MCV 92.8 D (81.0-99.0) fL MCH 25.8 L (27.0-31.0) pg MCHC 27.8 L (33.0-37.0) g/dL RDW 17.4 H (11.5-14.5) % Plt Count 34 L D (130-400) K/uL MPV 13.1 H (7.2-11.7) fL Neut % (Auto) (50.0-75.0) % Lymph % (Auto) (20.0-40.0) % [place] % (Auto) (0.0-10.0) % Eos % (Auto) (0.0-4.0) % Baso % (Auto) (0.0-2.0) % Neut # (Auto) (1.8-7.0) K/uL Lymph # (Auto) (1.0-4.3) K/uL [place] # (Auto) (0.0-0.8) K/uL Eos # (Auto) (0.0-0.7) K/uL Baso # (Auto) (0.0-0.2) K/uL Neutrophils % (Manual) (50-75) % Band Neutrophils % (0-2) % Lymphocytes % (Manual) (20-40) % Reactive Lymphs % (0-0) % Monocytes % (Manual) (0-10) % Basophils % (Manual) (0-2) % Metamyelocytes % (0-0) % Myelocytes % (0-0) % Nucleated RBC % (0-0) % Differential Comment Platelet Estimate (NORMAL) Large Platelets Anisocytosis (manual) Thornton Cells Smear Path Review PT (9.7-12.2) SECONDS INR APTT (21-34) SECONDS Puncture Site pCO2 (35-45) mm/Hg pO2 (80-100) mm/Hg HCO3 (21-28) mmol/L ABG pH (7.35-7.45) ABG Total CO2 (22-28) mmol/L ABG O2 Saturation (95-98) % ABG Base Excess (-2.0-3.0) mmol/L Brandon Test ABG Potassium (3.6-5.2) mmol/L A-a O2 Difference mm/Hg Respiratory Index Sodium 143 (132-148) mmol/l Chloride 107 (98-107) mmol/L Glucose (65-105) mg/dl Lactate (0.7-2.1) mmol/L Vent Mode Mechanical Rate FiO2 % Tidal Volume PEEP Crit Value Called To Crit Value Called By Crit Value Read Back Blood Gas Notified Time Potassium 6.4 H* D (3.6-5.2) mmol/L Carbon Dioxide 5 L* D (22-30) mmol/L Anion Gap 38 H (10-20) BUN 17 (7-17) mg/dL Creatinine 2.5 H (0.7-1.2) mg/dL Est GFR ( Amer) 23 Est GFR (Non-Af Amer) 19 POC Glucose (mg/dL) 71 (65-110) mg/dL Random Glucose 113 H (65-105) mg/dL Calcium 5.2 L* (8.6-10.4) mg/dl Phosphorus 12.0 H (2.5-4.5) mg/dL Magnesium 2.0 (1.6-2.3) mg/dL Total Bilirubin 0.6 (0.2-1.3) mg/dL AST 8636 H (14-36) U/L ALT 1632 H (9-52) U/L Alkaline Phosphatase 109 (38-126) U/L Total Protein 2.0 L (6.3-8.3) g/dL Albumin 1.0 L (3.5-5.0) g/dL Globulin 1.0 L (2.2-3.9) gm/dL Albumin/Globulin Ratio 1.0 (1.0-2.1) Arterial Blood Potassium (3.6-5.2) mmol/L Urine Color (YELLOW) Urine Clarity (Clear) Urine pH (5.0-8.0) Ur Specific Miller (1.003-1.030) Urine Protein (NEGATIVE) mg/dL Urine Glucose (UA) (Normal) mg/dL Urine Ketones (NEGATIVE) mg/dL Urine Blood (NEGATIVE) Urine Nitrate (NEGATIVE) Urine Bilirubin (NEGATIVE) Urine Urobilinogen (0.2-1.0) mg/dL Ur Leukocyte Esterase (Negative) Justyn/uL Urine WBC (Auto) (0-5) /hpf Urine RBC (Auto) (0-3) /hpf Ur Squamous Epith Cells (0-5) /hpf Urine Bacteria (<OCC) Hyaline Casts (0-2) /lpf Blood Type Antibody Screen 04/26/18 04/26/18 04/26/18 Range/Units 05:36 00:45 00:45 WBC 60.8 H* (4.8-10.8) K/uL RBC 3.23 L (3.80-5.20) Mil/uL Hgb 8.4 L D (11.0-16.0) g/dL Hct 27.7 L (34.0-47.0) % MCV 86.0 (81.0-99.0) fL MCH 26.2 L (27.0-31.0) pg MCHC 30.4 L (33.0-37.0) g/dL RDW 16.2 H (11.5-14.5) % Plt Count 70 L (130-400) K/uL MPV 12.2 H (7.2-11.7) fL Neut % (Auto) 81.8 H (50.0-75.0) % Lymph % (Auto) 14.4 L (20.0-40.0) % [place] % (Auto) 1.9 (0.0-10.0) % Eos % (Auto) 1.0 (0.0-4.0) % Baso % (Auto) 0.9 (0.0-2.0) % Neut # (Auto) 49.7 H (1.8-7.0) K/uL Lymph # (Auto) 8.7 H (1.0-4.3) K/uL [place] # (Auto) 1.2 H (0.0-0.8) K/uL Eos # (Auto) 0.6 (0.0-0.7) K/uL Baso # (Auto) 0.6 H (0.0-0.2) K/uL Neutrophils % (Manual) 55 (50-75) % Band Neutrophils % 12 H* (0-2) % Lymphocytes % (Manual) 16 L (20-40) % Reactive Lymphs % (0-0) % Monocytes % (Manual) 8 (0-10) % Basophils % (Manual) 1 (0-2) % Metamyelocytes % 7 H (0-0) % Myelocytes % 1 H (0-0) % Nucleated RBC % 3 H (0-0) % Differential Comment Platelet Estimate Decreased L (NORMAL) Large Platelets Anisocytosis (manual) Thornton Cells Smear Path Review PT (9.7-12.2) SECONDS INR APTT (21-34) SECONDS Puncture Site A-ine pCO2 22 L (35-45) mm/Hg pO2 72 L (80-100) mm/Hg HCO3 (21-28) mmol/L ABG pH < 6.80 L* (7.35-7.45) ABG Total CO2 (22-28) mmol/L ABG O2 Saturation 94.2 L (95-98) % ABG Base Excess (-2.0-3.0) mmol/L Brandon Test Na ABG Potassium 6.4 H* (3.6-5.2) mmol/L A-a O2 Difference 614.0 mm/Hg Respiratory Index 8.5 Sodium 139.0 143 (132-148) mmol/l Chloride 105.0 103 (98-107) mmol/L Glucose 113 H (65-105) mg/dl Lactate > 20.0 H* (0.7-2.1) mmol/L Vent Mode Prvc Mechanical Rate 30 FiO2 100.0 % Tidal Volume 500 PEEP 5 Crit 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 Crit Value Called By Aretha marrufo rt Crit Value Read Back Y Blood Gas Notified Time 549 Potassium 4.5 (3.6-5.2) mmol/L Carbon Dioxide 7 L* D (22-30) mmol/L Anion Gap 37 H (10-20) BUN 20 H (7-17) mg/dL Creatinine 2.3 H (0.7-1.2) mg/dL Est GFR ( Amer) 26 Est GFR (Non-Af Amer) 21 POC Glucose (mg/dL) (65-110) mg/dL Random Glucose 142 H (65-105) mg/dL Calcium 5.7 L* (8.6-10.4) mg/dl Phosphorus 9.8 H (2.5-4.5) mg/dL Magnesium 2.0 (1.6-2.3) mg/dL Total Bilirubin 0.9 (0.2-1.3) mg/dL AST 9376 H (14-36) U/L ALT 1993 H (9-52) U/L Alkaline Phosphatase 143 H (38-126) U/L Total Protein 2.2 L (6.3-8.3) g/dL Albumin 1.0 L (3.5-5.0) g/dL Globulin 1.2 L (2.2-3.9) gm/dL Albumin/Globulin Ratio 0.9 L (1.0-2.1) Arterial Blood Potassium 6.4 H* (3.6-5.2) mmol/L Urine Color (YELLOW) Urine Clarity (Clear) Urine pH (5.0-8.0) Ur Specific Miller (1.003-1.030) Urine Protein (NEGATIVE) mg/dL Urine Glucose (UA) (Normal) mg/dL Urine Ketones (NEGATIVE) mg/dL Urine Blood (NEGATIVE) Urine Nitrate (NEGATIVE) Urine Bilirubin (NEGATIVE) Urine Urobilinogen (0.2-1.0) mg/dL Ur Leukocyte Esterase (Negative) Justyn/uL Urine WBC (Auto) (0-5) /hpf Urine RBC (Auto) (0-3) /hpf Ur Squamous Epith Cells (0-5) /hpf Urine Bacteria (<OCC) Hyaline Casts (0-2) /lpf Blood Type Antibody Screen 04/26/18 04/25/18 04/25/18 Range/Units 00:05 23:29 22:20 WBC (4.8-10.8) K/uL RBC (3.80-5.20) Mil/uL Hgb (11.0-16.0) g/dL Hct (34.0-47.0) % MCV (81.0-99.0) fL MCH (27.0-31.0) pg MCHC (33.0-37.0) g/dL RDW (11.5-14.5) % Plt Count (130-400) K/uL MPV (7.2-11.7) fL Neut % (Auto) (50.0-75.0) % Lymph % (Auto) (20.0-40.0) % [place] % (Auto) (0.0-10.0) % Eos % (Auto) (0.0-4.0) % Baso % (Auto) (0.0-2.0) % Neut # (Auto) (1.8-7.0) K/uL Lymph # (Auto) (1.0-4.3) K/uL [place] # (Auto) (0.0-0.8) K/uL Eos # (Auto) (0.0-0.7) K/uL Baso # (Auto) (0.0-0.2) K/uL Neutrophils % (Manual) (50-75) % Band Neutrophils % (0-2) % Lymphocytes % (Manual) (20-40) % Reactive Lymphs % (0-0) % Monocytes % (Manual) (0-10) % Basophils % (Manual) (0-2) % Metamyelocytes % (0-0) % Myelocytes % (0-0) % Nucleated RBC % (0-0) % Differential Comment Platelet Estimate (NORMAL) Large Platelets Anisocytosis (manual) Juanita Cells Smear Path Review PT (9.7-12.2) SECONDS INR APTT (21-34) SECONDS Puncture Site pCO2 (35-45) mm/Hg pO2 (80-100) mm/Hg HCO3 (21-28) mmol/L ABG pH (7.35-7.45) ABG Total CO2 (22-28) mmol/L ABG O2 Saturation (95-98) % ABG Base Excess (-2.0-3.0) mmol/L Brandon Test ABG Potassium (3.6-5.2) mmol/L A-a O2 Difference mm/Hg Respiratory Index Sodium (132-148) mmol/l Chloride (98-107) mmol/L Glucose (65-105) mg/dl Lactate (0.7-2.1) mmol/L Vent Mode Mechanical Rate FiO2 % Tidal Volume PEEP Crit Value Called To Crit Value Called By Crit Value Read Back Blood Gas Notified Time Potassium (3.6-5.2) mmol/L Carbon Dioxide (22-30) mmol/L Anion Gap (10-20) BUN (7-17) mg/dL Creatinine (0.7-1.2) mg/dL Est GFR ( Amer) Est GFR (Non-Af Amer) POC Glucose (mg/dL) 97 98 114 H (65-110) mg/dL Random Glucose (65-105) mg/dL Calcium (8.6-10.4) mg/dl Phosphorus (2.5-4.5) mg/dL Magnesium (1.6-2.3) mg/dL Total Bilirubin (0.2-1.3) mg/dL AST (14-36) U/L ALT (9-52) U/L Alkaline Phosphatase (38-126) U/L Total Protein (6.3-8.3) g/dL Albumin (3.5-5.0) g/dL Globulin (2.2-3.9) gm/dL Albumin/Globulin Ratio (1.0-2.1) Arterial Blood Potassium (3.6-5.2) mmol/L Urine Color (YELLOW) Urine Clarity (Clear) Urine pH (5.0-8.0) Ur Specific Miller (1.003-1.030) Urine Protein (NEGATIVE) mg/dL Urine Glucose (UA) (Normal) mg/dL Urine Ketones (NEGATIVE) mg/dL Urine Blood (NEGATIVE) Urine Nitrate (NEGATIVE) Urine Bilirubin (NEGATIVE) Urine Urobilinogen (0.2-1.0) mg/dL Ur Leukocyte Esterase (Negative) Justyn/uL Urine WBC (Auto) (0-5) /hpf Urine RBC (Auto) (0-3) /hpf Ur Squamous Epith Cells (0-5) /hpf Urine Bacteria (<OCC) Hyaline Casts (0-2) /lpf Blood Type Antibody Screen 04/25/18 04/25/18 04/25/18 Range/Units 21:52 21:50 21:33 WBC (4.8-10.8) K/uL RBC (3.80-5.20) Mil/uL Hgb (11.0-16.0) g/dL Hct (34.0-47.0) % MCV (81.0-99.0) fL MCH (27.0-31.0) pg MCHC (33.0-37.0) g/dL RDW (11.5-14.5) % Plt Count (130-400) K/uL MPV (7.2-11.7) fL Neut % (Auto) (50.0-75.0) % Lymph % (Auto) (20.0-40.0) % [place] % (Auto) (0.0-10.0) % Eos % (Auto) (0.0-4.0) % Baso % (Auto) (0.0-2.0) % Neut # (Auto) (1.8-7.0) K/uL Lymph # (Auto) (1.0-4.3) K/uL [place] # (Auto) (0.0-0.8) K/uL Eos # (Auto) (0.0-0.7) K/uL Baso # (Auto) (0.0-0.2) K/uL Neutrophils % (Manual) (50-75) % Band Neutrophils % (0-2) % Lymphocytes % (Manual) (20-40) % Reactive Lymphs % (0-0) % Monocytes % (Manual) (0-10) % Basophils % (Manual) (0-2) % Metamyelocytes % (0-0) % Myelocytes % (0-0) % Nucleated RBC % (0-0) % Differential Comment Platelet Estimate (NORMAL) Large Platelets Anisocytosis (manual) Thornton Cells Smear Path Review PT 54.9 H* D (9.7-12.2) SECONDS INR 5.0 D APTT 65 H D (21-34) SECONDS Puncture Site pCO2 (35-45) mm/Hg pO2 (80-100) mm/Hg HCO3 (21-28) mmol/L ABG pH (7.35-7.45) ABG Total CO2 (22-28) mmol/L ABG O2 Saturation (95-98) % ABG Base Excess (-2.0-3.0) mmol/L Brandon Test ABG Potassium (3.6-5.2) mmol/L A-a O2 Difference mm/Hg Respiratory Index Sodium (132-148) mmol/l Chloride (98-107) mmol/L Glucose (65-105) mg/dl Lactate (0.7-2.1) mmol/L Vent Mode Mechanical Rate FiO2 % Tidal Volume PEEP Crit Value Called To Crit Value Called By Crit Value Read Back Blood Gas Notified Time Potassium (3.6-5.2) mmol/L Carbon Dioxide (22-30) mmol/L Anion Gap (10-20) BUN (7-17) mg/dL Creatinine (0.7-1.2) mg/dL Est GFR ( Amer) Est GFR (Non-Af Amer) POC Glucose (mg/dL) 47 L 49 L (65-110) mg/dL Random Glucose (65-105) mg/dL Calcium (8.6-10.4) mg/dl Phosphorus (2.5-4.5) mg/dL Magnesium (1.6-2.3) mg/dL Total Bilirubin (0.2-1.3) mg/dL AST (14-36) U/L ALT (9-52) U/L Alkaline Phosphatase (38-126) U/L Total Protein (6.3-8.3) g/dL Albumin (3.5-5.0) g/dL Globulin (2.2-3.9) gm/dL Albumin/Globulin Ratio (1.0-2.1) Arterial Blood Potassium (3.6-5.2) mmol/L Urine Color (YELLOW) Urine Clarity (Clear) Urine pH (5.0-8.0) Ur Specific Miller (1.003-1.030) Urine Protein (NEGATIVE) mg/dL Urine Glucose (UA) (Normal) mg/dL Urine Ketones (NEGATIVE) mg/dL Urine Blood (NEGATIVE) Urine Nitrate (NEGATIVE) Urine Bilirubin (NEGATIVE) Urine Urobilinogen (0.2-1.0) mg/dL Ur Leukocyte Esterase (Negative) Justyn/uL Urine WBC (Auto) (0-5) /hpf Urine RBC (Auto) (0-3) /hpf Ur Squamous Epith Cells (0-5) /hpf Urine Bacteria (<OCC) Hyaline Casts (0-2) /lpf Blood Type Antibody Screen 04/25/18 04/25/18 04/25/18 Range/Units 21:20 18:12 18:12 WBC 55.8 H* (4.8-10.8) K/uL RBC 3.96 (3.80-5.20) Mil/uL Hgb 10.4 L D (11.0-16.0) g/dL Hct 33.5 L (34.0-47.0) % MCV 84.6 (81.0-99.0) fL MCH 26.2 L (27.0-31.0) pg MCHC 30.9 L (33.0-37.0) g/dL RDW 15.9 H (11.5-14.5) % Plt Count 76 L D (130-400) K/uL MPV 9.2 (7.2-11.7) fL Neut % (Auto) (50.0-75.0) % Lymph % (Auto) (20.0-40.0) % [place] % (Auto) (0.0-10.0) % Eos % (Auto) (0.0-4.0) % Baso % (Auto) (0.0-2.0) % Neut # (Auto) (1.8-7.0) K/uL Lymph # (Auto) (1.0-4.3) K/uL [place] # (Auto) (0.0-0.8) K/uL Eos # (Auto) (0.0-0.7) K/uL Baso # (Auto) (0.0-0.2) K/uL Neutrophils % (Manual) (50-75) % Band Neutrophils % (0-2) % Lymphocytes % (Manual) (20-40) % Reactive Lymphs % (0-0) % Monocytes % (Manual) (0-10) % Basophils % (Manual) (0-2) % Metamyelocytes % (0-0) % Myelocytes % (0-0) % Nucleated RBC % (0-0) % Differential Comment Platelet Estimate (NORMAL) Large Platelets Anisocytosis (manual) Juanita Cells Smear Path Review PT (9.7-12.2) SECONDS INR APTT (21-34) SECONDS Puncture Site A line pCO2 19 L* (35-45) mm/Hg pO2 75 L (80-100) mm/Hg HCO3 5.7 L* (21-28) mmol/L ABG pH 7.03 L* (7.35-7.45) ABG Total CO2 5.6 L (22-28) mmol/L ABG O2 Saturation 95.6 (95-98) % ABG Base Excess -24.2 L (-2.0-3.0) mmol/L Brandon Test Na ABG Potassium 4.0 (3.6-5.2) mmol/L A-a O2 Difference 614.0 mm/Hg Respiratory Index 8.2 Sodium 141.0 140 (132-148) mmol/l Chloride 106.0 101 (98-107) mmol/L Glucose 49 L (65-105) mg/dl Lactate > 20.0 H* (0.7-2.1) mmol/L Vent Mode Prvc Mechanical Rate 30 FiO2 100.0 % Tidal Volume 500 PEEP 5 Crit Value Called To Dr escalera Crit Value Called By Nicole turner cricket coach Crit Value Read Back Y Blood Gas Notified Time 2124 Potassium 4.4 (3.6-5.2) mmol/L Carbon Dioxide 13 L (22-30) mmol/L Anion Gap 31 H (10-20) BUN 24 H (7-17) mg/dL Creatinine 2.2 H (0.7-1.2) mg/dL Est GFR ( Amer) 27 Est GFR (Non-Af Amer) 22 POC Glucose (mg/dL) (65-110) mg/dL Random Glucose 119 H (65-105) mg/dL Calcium 6.1 L (8.6-10.4) mg/dl Phosphorus 10.3 H (2.5-4.5) mg/dL Magnesium 2.2 (1.6-2.3) mg/dL Total Bilirubin 0.8 (0.2-1.3) mg/dL AST 6230 H (14-36) U/L ALT 1680 H (9-52) U/L Alkaline Phosphatase 140 H D (38-126) U/L Total Protein 2.5 L (6.3-8.3) g/dL Albumin 1.2 L (3.5-5.0) g/dL Globulin 1.4 L (2.2-3.9) gm/dL Albumin/Globulin Ratio 0.9 L (1.0-2.1) Arterial Blood Potassium 4.0 (3.6-5.2) mmol/L Urine Color (YELLOW) Urine Clarity (Clear) Urine pH (5.0-8.0) Ur Specific Miller (1.003-1.030) Urine Protein (NEGATIVE) mg/dL Urine Glucose (UA) (Normal) mg/dL Urine Ketones (NEGATIVE) mg/dL Urine Blood (NEGATIVE) Urine Nitrate (NEGATIVE) Urine Bilirubin (NEGATIVE) Urine Urobilinogen (0.2-1.0) mg/dL Ur Leukocyte Esterase (Negative) Justyn/uL Urine WBC (Auto) (0-5) /hpf Urine RBC (Auto) (0-3) /hpf Ur Squamous Epith Cells (0-5) /hpf Urine Bacteria (<OCC) Hyaline Casts (0-2) /lpf Blood Type Antibody Screen 04/25/18 04/25/18 04/25/18 Range/Units 18:11 17:51 17:23 WBC (4.8-10.8) K/uL RBC (3.80-5.20) Mil/uL Hgb (11.0-16.0) g/dL Hct (34.0-47.0) % MCV (81.0-99.0) fL MCH (27.0-31.0) pg MCHC (33.0-37.0) g/dL RDW (11.5-14.5) % Plt Count (130-400) K/uL MPV (7.2-11.7) fL Neut % (Auto) (50.0-75.0) % Lymph % (Auto) (20.0-40.0) % [place] % (Auto) (0.0-10.0) % Eos % (Auto) (0.0-4.0) % Baso % (Auto) (0.0-2.0) % Neut # (Auto) (1.8-7.0) K/uL Lymph # (Auto) (1.0-4.3) K/uL [place] # (Auto) (0.0-0.8) K/uL Eos # (Auto) (0.0-0.7) K/uL Baso # (Auto) (0.0-0.2) K/uL Neutrophils % (Manual) (50-75) % Band Neutrophils % (0-2) % Lymphocytes % (Manual) (20-40) % Reactive Lymphs % (0-0) % Monocytes % (Manual) (0-10) % Basophils % (Manual) (0-2) % Metamyelocytes % (0-0) % Myelocytes % (0-0) % Nucleated RBC % (0-0) % Differential Comment Platelet Estimate (NORMAL) Large Platelets Anisocytosis (manual) Juanita Cells Smear Path Review PT (9.7-12.2) SECONDS INR APTT (21-34) SECONDS Puncture Site A line pCO2 26 L (35-45) mm/Hg pO2 90 (80-100) mm/Hg HCO3 9.7 L* (21-28) mmol/L ABG pH 7.12 L* (7.35-7.45) ABG Total CO2 9.3 L (22-28) mmol/L ABG O2 Saturation 99.5 H (95-98) % ABG Base Excess -19.4 L (-2.0-3.0) mmol/L Brandon Test Na ABG Potassium 4.1 (3.6-5.2) mmol/L A-a O2 Difference 591.0 mm/Hg Respiratory Index 6.6 Sodium 138.0 (132-148) mmol/l Chloride 104.0 (98-107) mmol/L Glucose 133 H (65-105) mg/dl Lactate 16.6 H* (0.7-2.1) mmol/L Vent Mode Prvc Mechanical Rate 30 FiO2 100.0 % Tidal Volume 500 PEEP 5 Crit Value Called To Dr antoine dodge Crit Value Called By Nicole turner cricket coach Crit Value Read Back Y Blood Gas Notified Time 1727 Potassium (3.6-5.2) mmol/L Carbon Dioxide (22-30) mmol/L Anion Gap (10-20) BUN (7-17) mg/dL Creatinine (0.7-1.2) mg/dL Est GFR ( Amer) Est GFR (Non-Af Amer) POC Glucose (mg/dL) 120 H (65-110) mg/dL Random Glucose (65-105) mg/dL Calcium (8.6-10.4) mg/dl Phosphorus (2.5-4.5) mg/dL Magnesium (1.6-2.3) mg/dL Total Bilirubin (0.2-1.3) mg/dL AST (14-36) U/L ALT (9-52) U/L Alkaline Phosphatase (38-126) U/L Total Protein (6.3-8.3) g/dL Albumin (3.5-5.0) g/dL Globulin (2.2-3.9) gm/dL Albumin/Globulin Ratio (1.0-2.1) Arterial Blood Potassium 4.1 (3.6-5.2) mmol/L Urine Color Yellow (YELLOW) Urine Clarity Hazy (Clear) Urine pH 6.0 (5.0-8.0) Ur Specific Miller 1.011 (1.003-1.030) Urine Protein 2+ H (NEGATIVE) mg/dL Urine Glucose (UA) 1+ (Normal) mg/dL Urine Ketones Negative (NEGATIVE) mg/dL Urine Blood 2+ H (NEGATIVE) Urine Nitrate Negative (NEGATIVE) Urine Bilirubin Negative (NEGATIVE) Urine Urobilinogen Normal (0.2-1.0) mg/dL Ur Leukocyte Esterase 1+ H (Negative) Justyn/uL Urine WBC (Auto) 95 H (0-5) /hpf Urine RBC (Auto) 259 H (0-3) /hpf Ur Squamous Epith Cells 1 (0-5) /hpf Urine Bacteria Rare (<OCC) Hyaline Casts 6-10 H (0-2) /lpf Blood Type Antibody Screen 04/25/18 04/25/18 04/25/18 Range/Units 16:15 15:41 15:41 WBC 57.9 H* (4.8-10.8) K/uL RBC 3.40 L (3.80-5.20) Mil/uL Hgb 8.3 L D (11.0-16.0) g/dL Hct 28.8 L (34.0-47.0) % MCV 84.7 D (81.0-99.0) fL MCH 24.6 L (27.0-31.0) pg MCHC 29.0 L (33.0-37.0) g/dL RDW 16.1 H (11.5-14.5) % Plt Count 103 L D (130-400) K/uL MPV 9.0 (7.2-11.7) fL Neut % (Auto) (50.0-75.0) % Lymph % (Auto) (20.0-40.0) % [place] % (Auto) (0.0-10.0) % Eos % (Auto) (0.0-4.0) % Baso % (Auto) (0.0-2.0) % Neut # (Auto) (1.8-7.0) K/uL Lymph # (Auto) (1.0-4.3) K/uL [place] # (Auto) (0.0-0.8) K/uL Eos # (Auto) (0.0-0.7) K/uL Baso # (Auto) (0.0-0.2) K/uL Neutrophils % (Manual) (50-75) % Band Neutrophils % (0-2) % Lymphocytes % (Manual) (20-40) % Reactive Lymphs % (0-0) % Monocytes % (Manual) (0-10) % Basophils % (Manual) (0-2) % Metamyelocytes % (0-0) % Myelocytes % (0-0) % Nucleated RBC % (0-0) % Differential Comment Platelet Estimate (NORMAL) Large Platelets Anisocytosis (manual) Thornton Cells Smear Path Review PT (9.7-12.2) SECONDS INR APTT (21-34) SECONDS Puncture Site Line pCO2 45 (35-45) mm/Hg pO2 67 L (80-100) mm/Hg HCO3 5.6 L* (21-28) mmol/L ABG pH 6.90 L* (7.35-7.45) ABG Total CO2 10.2 L (22-28) mmol/L ABG O2 Saturation 90.1 L (95-98) % ABG Base Excess -23.9 L (-2.0-3.0) mmol/L Brandon Test Na ABG Potassium 4.9 (3.6-5.2) mmol/L A-a O2 Difference 590.0 mm/Hg Respiratory Index 8.8 Sodium 136.0 141 (132-148) mmol/l Chloride 103.0 102 (98-107) mmol/L Glucose 170 H (65-105) mg/dl Lactate 17.4 H* (0.7-2.1) mmol/L Vent Mode A/c Mechanical Rate FiO2 100.0 % Tidal Volume PEEP Crit Value Called To Dr artis Crit Value Called By Nicole turner cricket coach Crit Value Read Back Y Blood Gas Notified Time 1622 Potassium 5.3 H (3.6-5.2) mmol/L Carbon Dioxide 12 L (22-30) mmol/L Anion Gap 33 H (10-20) BUN 21 H (7-17) mg/dL Creatinine 2.1 H (0.7-1.2) mg/dL Est GFR ( Amer) 28 Est GFR (Non-Af Amer) 23 POC Glucose (mg/dL) (65-110) mg/dL Random Glucose 162 H (65-105) mg/dL Calcium 9.9 (8.6-10.4) mg/dl Phosphorus 10.7 H (2.5-4.5) mg/dL Magnesium 2.1 (1.6-2.3) mg/dL Total Bilirubin 0.3 (0.2-1.3) mg/dL AST 1421 H (14-36) U/L ALT 507 H D (9-52) U/L Alkaline Phosphatase 77 (38-126) U/L Total Protein 2.5 L (6.3-8.3) g/dL Albumin 1.2 L D (3.5-5.0) g/dL Globulin 1.3 L (2.2-3.9) gm/dL Albumin/Globulin Ratio 0.9 L (1.0-2.1) Arterial Blood Potassium 4.9 (3.6-5.2) mmol/L Urine Color (YELLOW) Urine Clarity (Clear) Urine pH (5.0-8.0) Ur Specific Miller (1.003-1.030) Urine Protein (NEGATIVE) mg/dL Urine Glucose (UA) (Normal) mg/dL Urine Ketones (NEGATIVE) mg/dL Urine Blood (NEGATIVE) Urine Nitrate (NEGATIVE) Urine Bilirubin (NEGATIVE) Urine Urobilinogen (0.2-1.0) mg/dL Ur Leukocyte Esterase (Negative) Justyn/uL Urine WBC (Auto) (0-5) /hpf Urine RBC (Auto) (0-3) /hpf Ur Squamous Epith Cells (0-5) /hpf Urine Bacteria (<OCC) Hyaline Casts (0-2) /lpf Blood Type Antibody Screen 04/25/18 04/25/18 04/25/18 Range/Units 15:13 14:54 12:36 WBC (4.8-10.8) K/uL RBC (3.80-5.20) Mil/uL Hgb (11.0-16.0) g/dL Hct (34.0-47.0) % MCV (81.0-99.0) fL MCH (27.0-31.0) pg MCHC (33.0-37.0) g/dL RDW (11.5-14.5) % Plt Count (130-400) K/uL MPV (7.2-11.7) fL Neut % (Auto) (50.0-75.0) % Lymph % (Auto) (20.0-40.0) % [place] % (Auto) (0.0-10.0) % Eos % (Auto) (0.0-4.0) % Baso % (Auto) (0.0-2.0) % Neut # (Auto) (1.8-7.0) K/uL Lymph # (Auto) (1.0-4.3) K/uL [place] # (Auto) (0.0-0.8) K/uL Eos # (Auto) (0.0-0.7) K/uL Baso # (Auto) (0.0-0.2) K/uL Neutrophils % (Manual) (50-75) % Band Neutrophils % (0-2) % Lymphocytes % (Manual) (20-40) % Reactive Lymphs % (0-0) % Monocytes % (Manual) (0-10) % Basophils % (Manual) (0-2) % Metamyelocytes % (0-0) % Myelocytes % (0-0) % Nucleated RBC % (0-0) % Differential Comment Platelet Estimate (NORMAL) Large Platelets Anisocytosis (manual) Juanita Cells Smear Path Review PT (9.7-12.2) SECONDS INR APTT (21-34) SECONDS Puncture Site Line Line pCO2 49 H 94 H* (35-45) mm/Hg pO2 56 L 35 L* (80-100) mm/Hg HCO3 5.1 L* 36.6 H (21-28) mmol/L ABG pH 6.88 L* 7.31 L (7.35-7.45) ABG Total CO2 10.7 L 50.2 H (22-28) mmol/L ABG O2 Saturation 80.0 L 64.4 L (95-98) % ABG Base Excess -24.1 L 16.2 H (-2.0-3.0) mmol/L Brandon Test Na Na ABG Potassium 4.8 4.8 (3.6-5.2) mmol/L A-a O2 Difference 596.0 561.0 mm/Hg Respiratory Index 10.6 16.0 Sodium 138.0 158.0 H (132-148) mmol/l Chloride 102.0 108.0 H (98-107) mmol/L Glucose 141 H 86 (65-105) mg/dl Lactate 18.3 H* 17.9 H* (0.7-2.1) mmol/L Vent Mode A/c Mechanical Rate FiO2 100.0 100.0 % Tidal Volume PEEP Crit Value Called To Dr chandra artis Crit Value Called By Nicole turner cricket coach Nicole norman cricket coach Crit Value Read Back Y Y Blood Gas Notified Time 1518 1458 Potassium (3.6-5.2) mmol/L Carbon Dioxide (22-30) mmol/L Anion Gap (10-20) BUN (7-17) mg/dL Creatinine (0.7-1.2) mg/dL Est GFR ( Amer) Est GFR (Non-Af Amer) POC Glucose (mg/dL) 152 H (65-110) mg/dL Random Glucose (65-105) mg/dL Calcium (8.6-10.4) mg/dl Phosphorus (2.5-4.5) mg/dL Magnesium (1.6-2.3) mg/dL Total Bilirubin (0.2-1.3) mg/dL AST (14-36) U/L ALT (9-52) U/L Alkaline Phosphatase (38-126) U/L Total Protein (6.3-8.3) g/dL Albumin (3.5-5.0) g/dL Globulin (2.2-3.9) gm/dL Albumin/Globulin Ratio (1.0-2.1) Arterial Blood Potassium 4.8 4.8 (3.6-5.2) mmol/L Urine Color (YELLOW) Urine Clarity (Clear) Urine pH (5.0-8.0) Ur Specific Miller (1.003-1.030) Urine Protein (NEGATIVE) mg/dL Urine Glucose (UA) (Normal) mg/dL Urine Ketones (NEGATIVE) mg/dL Urine Blood (NEGATIVE) Urine Nitrate (NEGATIVE) Urine Bilirubin (NEGATIVE) Urine Urobilinogen (0.2-1.0) mg/dL Ur Leukocyte Esterase (Negative) Justyn/uL Urine WBC (Auto) (0-5) /hpf Urine RBC (Auto) (0-3) /hpf Ur Squamous Epith Cells (0-5) /hpf Urine Bacteria (<OCC) Hyaline Casts (0-2) /lpf Blood Type Antibody Screen 04/25/18 04/25/18 04/25/18 Range/Units 10:42 10:42 10:27 WBC 72.6 H* (4.8-10.8) K/uL RBC 5.33 H (3.80-5.20) Mil/uL Hgb 13.3 (11.0-16.0) g/dL Hct 42.6 (34.0-47.0) % MCV 80.0 L D (81.0-99.0) fL MCH 25.0 L (27.0-31.0) pg MCHC 31.2 L (33.0-37.0) g/dL RDW 16.3 H (11.5-14.5) % Plt Count 294 (130-400) K/uL MPV 9.5 (7.2-11.7) fL Neut % (Auto) 92.4 H (50.0-75.0) % Lymph % (Auto) 4.8 L (20.0-40.0) % [place] % (Auto) 1.7 (0.0-10.0) % Eos % (Auto) 0.4 (0.0-4.0) % Baso % (Auto) 0.7 (0.0-2.0) % Neut # (Auto) 67.1 H (1.8-7.0) K/uL Lymph # (Auto) 3.5 (1.0-4.3) K/uL [place] # (Auto) 1.2 H (0.0-0.8) K/uL Eos # (Auto) 0.3 (0.0-0.7) K/uL Baso # (Auto) 0.5 H (0.0-0.2) K/uL Neutrophils % (Manual) 71 (50-75) % Band Neutrophils % 14 H* (0-2) % Lymphocytes % (Manual) 6 L (20-40) % Reactive Lymphs % 1 H (0-0) % Monocytes % (Manual) 5 (0-10) % Basophils % (Manual) (0-2) % Metamyelocytes % 3 H (0-0) % Myelocytes % (0-0) % Nucleated RBC % (0-0) % Differential Comment Platelet Estimate Normal (NORMAL) Large Platelets Present Anisocytosis (manual) Slight Thornton Cells Moderate Smear Path Review PT 15.2 H (9.7-12.2) SECONDS INR 1.4 APTT 36 H (21-34) SECONDS Puncture Site Lf pCO2 21 L (35-45) mm/Hg pO2 91 (80-100) mm/Hg HCO3 16.1 L (21-28) mmol/L ABG pH 7.36 (7.35-7.45) ABG Total CO2 12.5 L (22-28) mmol/L ABG O2 Saturation 98.9 H (95-98) % ABG Base Excess -11.3 L (-2.0-3.0) mmol/L Brandon Test Na ABG Potassium 3.7 (3.6-5.2) mmol/L A-a O2 Difference 311.0 mm/Hg Respiratory Index 3.4 Sodium 135.0 (132-148) mmol/l Chloride 105.0 (98-107) mmol/L Glucose 164 H (65-105) mg/dl Lactate 6.1 H* (0.7-2.1) mmol/L Vent Mode Prvc Mechanical Rate 25 FiO2 60.0 % Tidal Volume 500 PEEP 5 Crit Value Called To Dr antoine dodge Crit Value Called By Nicole turner cricket coach Crit Value Read Back Y Blood Gas Notified Time 1030 Potassium (3.6-5.2) mmol/L Carbon Dioxide (22-30) mmol/L Anion Gap (10-20) BUN (7-17) mg/dL Creatinine (0.7-1.2) mg/dL Est GFR ( Amer) Est GFR (Non-Af Amer) POC Glucose (mg/dL) (65-110) mg/dL Random Glucose (65-105) mg/dL Calcium (8.6-10.4) mg/dl Phosphorus (2.5-4.5) mg/dL Magnesium (1.6-2.3) mg/dL Total Bilirubin (0.2-1.3) mg/dL AST (14-36) U/L ALT (9-52) U/L Alkaline Phosphatase (38-126) U/L Total Protein (6.3-8.3) g/dL Albumin (3.5-5.0) g/dL Globulin (2.2-3.9) gm/dL Albumin/Globulin Ratio (1.0-2.1) Arterial Blood Potassium 3.7 (3.6-5.2) mmol/L Urine Color (YELLOW) Urine Clarity (Clear) Urine pH (5.0-8.0) Ur Specific [place] (1.003-1.030) Urine Protein (NEGATIVE) mg/dL Urine Glucose (UA) (Normal) mg/dL Urine Ketones (NEGATIVE) mg/dL Urine Blood (NEGATIVE) Urine Nitrate (NEGATIVE) Urine Bilirubin (NEGATIVE) Urine Urobilinogen (0.2-1.0) mg/dL Ur Leukocyte Esterase (Negative) Justyn/uL Urine WBC (Auto) (0-5) /hpf Urine RBC (Auto) (0-3) /hpf Ur Squamous Epith Cells (0-5) /hpf Urine Bacteria (<OCC) Hyaline Casts (0-2) /lpf Blood Type Antibody Screen 04/25/18 04/25/18 04/25/18 Range/Units 05:30 04:19 04:02 WBC (4.8-10.8) K/uL RBC (3.80-5.20) Mil/uL Hgb (11.0-16.0) g/dL Hct (34.0-47.0) % MCV (81.0-99.0) fL MCH (27.0-31.0) pg MCHC (33.0-37.0) g/dL RDW (11.5-14.5) % Plt Count (130-400) K/uL MPV (7.2-11.7) fL Neut % (Auto) (50.0-75.0) % Lymph % (Auto) (20.0-40.0) % [place] % (Auto) (0.0-10.0) % Eos % (Auto) (0.0-4.0) % Baso % (Auto) (0.0-2.0) % Neut # (Auto) (1.8-7.0) K/uL Lymph # (Auto) (1.0-4.3) K/uL [place] # (Auto) (0.0-0.8) K/uL Eos # (Auto) (0.0-0.7) K/uL Baso # (Auto) (0.0-0.2) K/uL Neutrophils % (Manual) 75 (50-75) % Band Neutrophils % 12 H* (0-2) % Lymphocytes % (Manual) 9 L (20-40) % Reactive Lymphs % (0-0) % Monocytes % (Manual) 2 (0-10) % Basophils % (Manual) (0-2) % Metamyelocytes % (0-0) % Myelocytes % 2 H (0-0) % Nucleated RBC % (0-0) % Differential Comment Platelet Estimate Normal (NORMAL) Large Platelets Anisocytosis (manual) Slight Juanita Cells Smear Path Review PT (9.7-12.2) SECONDS INR APTT (21-34) SECONDS Puncture Site pCO2 (35-45) mm/Hg pO2 (80-100) mm/Hg HCO3 (21-28) mmol/L ABG pH (7.35-7.45) ABG Total CO2 (22-28) mmol/L ABG O2 Saturation (95-98) % ABG Base Excess (-2.0-3.0) mmol/L Brandon Test ABG Potassium (3.6-5.2) mmol/L A-a O2 Difference mm/Hg Respiratory Index Sodium (132-148) mmol/l Chloride (98-107) mmol/L Glucose (65-105) mg/dl Lactate (0.7-2.1) mmol/L Vent Mode Mechanical Rate FiO2 % Tidal Volume PEEP Crit Value Called To Crit Value Called By Crit Value Read Back Blood Gas Notified Time Potassium (3.6-5.2) mmol/L Carbon Dioxide (22-30) mmol/L Anion Gap (10-20) BUN (7-17) mg/dL Creatinine (0.7-1.2) mg/dL Est GFR ( Amer) Est GFR (Non-Af Amer) POC Glucose (mg/dL) 288 H (65-110) mg/dL Random Glucose (65-105) mg/dL Calcium (8.6-10.4) mg/dl Phosphorus (2.5-4.5) mg/dL Magnesium (1.6-2.3) mg/dL Total Bilirubin (0.2-1.3) mg/dL AST (14-36) U/L ALT (9-52) U/L Alkaline Phosphatase (38-126) U/L Total Protein (6.3-8.3) g/dL Albumin (3.5-5.0) g/dL Globulin (2.2-3.9) gm/dL Albumin/Globulin Ratio (1.0-2.1) Arterial Blood Potassium (3.6-5.2) mmol/L Urine Color (YELLOW) Urine Clarity (Clear) Urine pH (5.0-8.0) Ur Specific [place] (1.003-1.030) Urine Protein (NEGATIVE) mg/dL Urine Glucose (UA) (Normal) mg/dL Urine Ketones (NEGATIVE) mg/dL Urine Blood (NEGATIVE) Urine Nitrate (NEGATIVE) Urine Bilirubin (NEGATIVE) Urine Urobilinogen (0.2-1.0) mg/dL Ur Leukocyte Esterase (Negative) Justyn/uL Urine WBC (Auto) (0-5) /hpf Urine RBC (Auto) (0-3) /hpf Ur Squamous Epith Cells (0-5) /hpf Urine Bacteria (<OCC) Hyaline Casts (0-2) /lpf Blood Type O NEGATIVE Antibody Screen Negative 04/24/18 04/24/18 Range/Units 17:04 13:22 WBC (4.8-10.8) K/uL RBC (3.80-5.20) Mil/uL Hgb (11.0-16.0) g/dL Hct (34.0-47.0) % MCV (81.0-99.0) fL MCH (27.0-31.0) pg MCHC (33.0-37.0) g/dL RDW (11.5-14.5) % Plt Count (130-400) K/uL MPV (7.2-11.7) fL Neut % (Auto) (50.0-75.0) % Lymph % (Auto) (20.0-40.0) % [place] % (Auto) (0.0-10.0) % Eos % (Auto) (0.0-4.0) % Baso % (Auto) (0.0-2.0) % Neut # (Auto) (1.8-7.0) K/uL Lymph # (Auto) (1.0-4.3) K/uL [place] # (Auto) (0.0-0.8) K/uL Eos # (Auto) (0.0-0.7) K/uL Baso # (Auto) (0.0-0.2) K/uL Neutrophils % (Manual) (50-75) % Band Neutrophils % (0-2) % Lymphocytes % (Manual) (20-40) % Reactive Lymphs % (0-0) % Monocytes % (Manual) (0-10) % Basophils % (Manual) (0-2) % Metamyelocytes % (0-0) % Myelocytes % (0-0) % Nucleated RBC % (0-0) % Differential Comment Platelet Estimate (NORMAL) Large Platelets Anisocytosis (manual) Junaita Cells Smear Path Review PT (9.7-12.2) SECONDS INR APTT (21-34) SECONDS Puncture Site pCO2 (35-45) mm/Hg pO2 (80-100) mm/Hg HCO3 (21-28) mmol/L ABG pH (7.35-7.45) ABG Total CO2 (22-28) mmol/L ABG O2 Saturation (95-98) % ABG Base Excess (-2.0-3.0) mmol/L Brandon Test ABG Potassium (3.6-5.2) mmol/L A-a O2 Difference mm/Hg Respiratory Index Sodium (132-148) mmol/l Chloride (98-107) mmol/L Glucose (65-105) mg/dl Lactate (0.7-2.1) mmol/L Vent Mode Mechanical Rate FiO2 % Tidal Volume PEEP Crit Value Called To Crit Value Called By Crit Value Read Back Blood Gas Notified Time Potassium (3.6-5.2) mmol/L Carbon Dioxide (22-30) mmol/L Anion Gap (10-20) BUN (7-17) mg/dL Creatinine (0.7-1.2) mg/dL Est GFR ( Amer) Est GFR (Non-Af Amer) POC Glucose (mg/dL) 225 H 228 H (65-110) mg/dL Random Glucose (65-105) mg/dL Calcium (8.6-10.4) mg/dl Phosphorus (2.5-4.5) mg/dL Magnesium (1.6-2.3) mg/dL Total Bilirubin (0.2-1.3) mg/dL AST (14-36) U/L ALT (9-52) U/L Alkaline Phosphatase (38-126) U/L Total Protein (6.3-8.3) g/dL Albumin (3.5-5.0) g/dL Globulin (2.2-3.9) gm/dL Albumin/Globulin Ratio (1.0-2.1) Arterial Blood Potassium (3.6-5.2) mmol/L Urine Color (YELLOW) Urine Clarity (Clear) Urine pH (5.0-8.0) Ur Specific [place] (1.003-1.030) Urine Protein (NEGATIVE) mg/dL Urine Glucose (UA) (Normal) mg/dL Urine Ketones (NEGATIVE) mg/dL Urine Blood (NEGATIVE) Urine Nitrate (NEGATIVE) Urine Bilirubin (NEGATIVE) Urine Urobilinogen (0.2-1.0) mg/dL Ur Leukocyte Esterase (Negative) Justyn/uL Urine WBC (Auto) (0-5) /hpf Urine RBC (Auto) (0-3) /hpf Ur Squamous Epith Cells (0-5) /hpf Urine Bacteria (<OCC) Hyaline Casts (0-2) /lpf Blood Type Antibody Screen Laboratory Results - last 24 hr 04/24/18 04/24/18 04/25/18 13:22 17:04 04:02 WBC RBC Hgb Hct MCV MCH MCHC RDW Plt Count MPV Neut % (Auto) Lymph % (Auto) [place] % (Auto) Eos % (Auto) Baso % (Auto) Neut # (Auto) Lymph # (Auto) [place] # (Auto) Eos # (Auto) Baso # (Auto) Neutrophils % (Manual) Band Neutrophils % Lymphocytes % (Manual) Reactive Lymphs % Monocytes % (Manual) Basophils % (Manual) Metamyelocytes % Myelocytes % Nucleated RBC % Differential Comment Platelet Estimate Large Platelets Anisocytosis (manual) Juanita Cells Smear Path Review PT INR APTT Puncture Site pCO2 pO2 HCO3 ABG pH ABG Total CO2 ABG O2 Saturation ABG Base Excess Brandon Test ABG Potassium A-a O2 Difference Respiratory Index Sodium Chloride Glucose Lactate Vent Mode Mechanical Rate FiO2 Tidal Volume PEEP Crit Value Called To Crit Value Called By Crit Value Read Back Blood Gas Notified Time Potassium Carbon Dioxide Anion Gap BUN Creatinine Est GFR ( Amer) Est GFR (Non-Af Amer) POC Glucose (mg/dL) 228 H 225 H 288 H Random Glucose Calcium Phosphorus Magnesium Total Bilirubin AST ALT Alkaline Phosphatase Total Protein Albumin Globulin Albumin/Globulin Ratio Arterial Blood Potassium Urine Color Urine Clarity Urine pH Ur Specific [place] Urine Protein Urine Glucose (UA) Urine Ketones Urine Blood Urine Nitrate Urine Bilirubin Urine Urobilinogen Ur Leukocyte Esterase Urine WBC (Auto) Urine RBC (Auto) Ur Squamous Epith Cells Urine Bacteria Hyaline Casts Blood Type Antibody Screen 04/25/18 04/25/18 04/25/18 04:19 05:30 10:27 WBC RBC Hgb Hct MCV MCH MCHC RDW Plt Count MPV Neut % (Auto) Lymph % (Auto) [place] % (Auto) Eos % (Auto) Baso % (Auto) Neut # (Auto) Lymph # (Auto) [place] # (Auto) Eos # (Auto) Baso # (Auto) Neutrophils % (Manual) 75 Band Neutrophils % 12 H* Lymphocytes % (Manual) 9 L Reactive Lymphs % Monocytes % (Manual) 2 Basophils % (Manual) Metamyelocytes % Myelocytes % 2 H Nucleated RBC % Differential Comment Platelet Estimate Normal Large Platelets Anisocytosis (manual) Slight Thornton Cells Smear Path Review PT INR APTT Puncture Site Lf pCO2 21 L pO2 91 HCO3 16.1 L ABG pH 7.36 ABG Total CO2 12.5 L ABG O2 Saturation 98.9 H ABG Base Excess -11.3 L Brandon Test Na ABG Potassium 3.7 A-a O2 Difference 311.0 Respiratory Index 3.4 Sodium 135.0 Chloride 105.0 Glucose 164 H Lactate 6.1 H* Vent Mode Prvc Mechanical Rate 25 FiO2 60.0 Tidal Volume 500 PEEP 5 Crit Value Called To Dr antoine dodge Crit Value Called By Nicole turner cricket coach Crit Value Read Back Y Blood Gas Notified Time 1030 Potassium Carbon Dioxide Anion Gap BUN Creatinine Est GFR ( Amer) Est GFR (Non-Af Amer) POC Glucose (mg/dL) Random Glucose Calcium Phosphorus Magnesium Total Bilirubin AST ALT Alkaline Phosphatase Total Protein Albumin Globulin Albumin/Globulin Ratio Arterial Blood Potassium 3.7 Urine Color Urine Clarity Urine pH Ur Specific Miller Urine Protein Urine Glucose (UA) Urine Ketones Urine Blood Urine Nitrate Urine Bilirubin Urine Urobilinogen Ur Leukocyte Esterase Urine WBC (Auto) Urine RBC (Auto) Ur Squamous Epith Cells Urine Bacteria Hyaline Casts Blood Type O NEGATIVE Antibody Screen Negative 04/25/18 04/25/18 04/25/18 10:42 10:42 12:36 WBC 72.6 H* RBC 5.33 H Hgb 13.3 Hct 42.6 MCV 80.0 L D MCH 25.0 L MCHC 31.2 L RDW 16.3 H Plt Count 294 MPV 9.5 Neut % (Auto) 92.4 H Lymph % (Auto) 4.8 L [place] % (Auto) 1.7 Eos % (Auto) 0.4 Baso % (Auto) 0.7 Neut # (Auto) 67.1 H Lymph # (Auto) 3.5 [place] # (Auto) 1.2 H Eos # (Auto) 0.3 Baso # (Auto) 0.5 H Neutrophils % (Manual) 71 Band Neutrophils % 14 H* Lymphocytes % (Manual) 6 L Reactive Lymphs % 1 H Monocytes % (Manual) 5 Basophils % (Manual) Metamyelocytes % 3 H Myelocytes % Nucleated RBC % Differential Comment Platelet Estimate Normal Large Platelets Present Anisocytosis (manual) Slight Thornton Cells Moderate Smear Path Review PT 15.2 H INR 1.4 APTT 36 H Puncture Site pCO2 pO2 HCO3 ABG pH ABG Total CO2 ABG O2 Saturation ABG Base Excess Brandon Test ABG Potassium A-a O2 Difference Respiratory Index Sodium Chloride Glucose Lactate Vent Mode Mechanical Rate FiO2 Tidal Volume PEEP Crit Value Called To Crit Value Called By Crit Value Read Back Blood Gas Notified Time Potassium Carbon Dioxide Anion Gap BUN Creatinine Est GFR ( Amer) Est GFR (Non-Af Amer) POC Glucose (mg/dL) 152 H Random Glucose Calcium Phosphorus Magnesium Total Bilirubin AST ALT Alkaline Phosphatase Total Protein Albumin Globulin Albumin/Globulin Ratio Arterial Blood Potassium Urine Color Urine Clarity Urine pH Ur Specific [place] Urine Protein Urine Glucose (UA) Urine Ketones Urine Blood Urine Nitrate Urine Bilirubin Urine Urobilinogen Ur Leukocyte Esterase Urine WBC (Auto) Urine RBC (Auto) Ur Squamous Epith Cells Urine Bacteria Hyaline Casts Blood Type Antibody Screen 04/25/18 04/25/18 04/25/18 14:54 15:13 15:41 WBC RBC Hgb Hct MCV MCH MCHC RDW Plt Count MPV Neut % (Auto) Lymph % (Auto) [place] % (Auto) Eos % (Auto) Baso % (Auto) Neut # (Auto) Lymph # (Auto) [place] # (Auto) Eos # (Auto) Baso # (Auto) Neutrophils % (Manual) Band Neutrophils % Lymphocytes % (Manual) Reactive Lymphs % Monocytes % (Manual) Basophils % (Manual) Metamyelocytes % Myelocytes % Nucleated RBC % Differential Comment Platelet Estimate Large Platelets Anisocytosis (manual) Juanita Cells Smear Path Review PT INR APTT Puncture Site Line Line pCO2 94 H* 49 H pO2 35 L* 56 L HCO3 36.6 H 5.1 L* ABG pH 7.31 L 6.88 L* ABG Total CO2 50.2 H 10.7 L ABG O2 Saturation 64.4 L 80.0 L ABG Base Excess 16.2 H -24.1 L Brandon Test Na Na ABG Potassium 4.8 4.8 A-a O2 Difference 561.0 596.0 Respiratory Index 16.0 10.6 Sodium 158.0 H 138.0 141 Chloride 108.0 H 102.0 102 Glucose 86 141 H Lactate 17.9 H* 18.3 H* Vent Mode A/c Mechanical Rate FiO2 100.0 100.0 Tidal Volume PEEP Crit Value Called To Dr chandra artis Crit Value Called By Nicole norman cricket coach Nicole turner cricket coach Crit Value Read Back Y Y Blood Gas Notified Time 1458 1518 Potassium 5.3 H Carbon Dioxide 12 L Anion Gap 33 H BUN 21 H Creatinine 2.1 H Est GFR ( Amer) 28 Est GFR (Non-Af Amer) 23 POC Glucose (mg/dL) Random Glucose 162 H Calcium 9.9 Phosphorus 10.7 H Magnesium 2.1 Total Bilirubin 0.3 AST 1421 H ALT 507 H D Alkaline Phosphatase 77 Total Protein 2.5 L Albumin 1.2 L D Globulin 1.3 L Albumin/Globulin Ratio 0.9 L Arterial Blood Potassium 4.8 4.8 Urine Color Urine Clarity Urine pH Ur Specific Miller Urine Protein Urine Glucose (UA) Urine Ketones Urine Blood Urine Nitrate Urine Bilirubin Urine Urobilinogen Ur Leukocyte Esterase Urine WBC (Auto) Urine RBC (Auto) Ur Squamous Epith Cells Urine Bacteria Hyaline Casts Blood Type Antibody Screen 04/25/18 04/25/18 04/25/18 15:41 16:15 17:23 WBC 57.9 H* RBC 3.40 L Hgb 8.3 L D Hct 28.8 L MCV 84.7 D MCH 24.6 L MCHC 29.0 L RDW 16.1 H Plt Count 103 L D MPV 9.0 Neut % (Auto) Lymph % (Auto) [place] % (Auto) Eos % (Auto) Baso % (Auto) Neut # (Auto) Lymph # (Auto) [place] # (Auto) Eos # (Auto) Baso # (Auto) Neutrophils % (Manual) Band Neutrophils % Lymphocytes % (Manual) Reactive Lymphs % Monocytes % (Manual) Basophils % (Manual) Metamyelocytes % Myelocytes % Nucleated RBC % Differential Comment Platelet Estimate Large Platelets Anisocytosis (manual) Thornton Cells Smear Path Review PT INR APTT Puncture Site Line A line pCO2 45 26 L pO2 67 L 90 HCO3 5.6 L* 9.7 L* ABG pH 6.90 L* 7.12 L* ABG Total CO2 10.2 L 9.3 L ABG O2 Saturation 90.1 L 99.5 H ABG Base Excess -23.9 L -19.4 L Brandon Test Na Na ABG Potassium 4.9 4.1 A-a O2 Difference 590.0 591.0 Respiratory Index 8.8 6.6 Sodium 136.0 138.0 Chloride 103.0 104.0 Glucose 170 H 133 H Lactate 17.4 H* 16.6 H* Vent Mode A/c Prvc Mechanical Rate 30 FiO2 100.0 100.0 Tidal Volume 500 PEEP 5 Crit Value Called To Dr chandra dodge Crit Value Called By Nicole turner cricket coach Nicole turner cricket coach Crit Value Read Back Y Y Blood Gas Notified Time 5223 1727 Potassium Carbon Dioxide Anion Gap BUN Creatinine Est GFR ( Amer) Est GFR (Non-Af Amer) POC Glucose (mg/dL) Random Glucose Calcium Phosphorus Magnesium Total Bilirubin AST ALT Alkaline Phosphatase Total Protein Albumin Globulin Albumin/Globulin Ratio Arterial Blood Potassium 4.9 4.1 Urine Color Urine Clarity Urine pH Ur Specific [place] Urine Protein Urine Glucose (UA) Urine Ketones Urine Blood Urine Nitrate Urine Bilirubin Urine Urobilinogen Ur Leukocyte Esterase Urine WBC (Auto) Urine RBC (Auto) Ur Squamous Epith Cells Urine Bacteria Hyaline Casts Blood Type Antibody Screen 04/25/18 04/25/18 04/25/18 17:51 18:11 18:12 WBC 55.8 H* RBC 3.96 Hgb 10.4 L D Hct 33.5 L MCV 84.6 MCH 26.2 L MCHC 30.9 L RDW 15.9 H Plt Count 76 L D MPV 9.2 Neut % (Auto) Lymph % (Auto) [place] % (Auto) Eos % (Auto) Baso % (Auto) Neut # (Auto) Lymph # (Auto) [place] # (Auto) Eos # (Auto) Baso # (Auto) Neutrophils % (Manual) Band Neutrophils % Lymphocytes % (Manual) Reactive Lymphs % Monocytes % (Manual) Basophils % (Manual) Metamyelocytes % Myelocytes % Nucleated RBC % Differential Comment Platelet Estimate Large Platelets Anisocytosis (manual) Juanita Cells Smear Path Review PT INR APTT Puncture Site pCO2 pO2 HCO3 ABG pH ABG Total CO2 ABG O2 Saturation ABG Base Excess Brandon Test ABG Potassium A-a O2 Difference Respiratory Index Sodium Chloride Glucose Lactate Vent Mode Mechanical Rate FiO2 Tidal Volume PEEP Crit Value Called To Crit Value Called By Crit Value Read Back Blood Gas Notified Time Potassium Carbon Dioxide Anion Gap BUN Creatinine Est GFR ( Amer) Est GFR (Non-Af Amer) POC Glucose (mg/dL) 120 H Random Glucose Calcium Phosphorus Magnesium Total Bilirubin AST ALT Alkaline Phosphatase Total Protein Albumin Globulin Albumin/Globulin Ratio Arterial Blood Potassium Urine Color Yellow Urine Clarity Hazy Urine pH 6.0 Ur Specific Miller 1.011 Urine Protein 2+ H Urine Glucose (UA) 1+ Urine Ketones Negative Urine Blood 2+ H Urine Nitrate Negative Urine Bilirubin Negative Urine Urobilinogen Normal Ur Leukocyte Esterase 1+ H Urine WBC (Auto) 95 H Urine RBC (Auto) 259 H Ur Squamous Epith Cells 1 Urine Bacteria Rare Hyaline Casts 6-10 H Blood Type Antibody Screen 04/25/18 04/25/18 04/25/18 18:12 21:20 21:33 WBC RBC Hgb Hct MCV MCH MCHC RDW Plt Count MPV Neut % (Auto) Lymph % (Auto) [place] % (Auto) Eos % (Auto) Baso % (Auto) Neut # (Auto) Lymph # (Auto) [place] # (Auto) Eos # (Auto) Baso # (Auto) Neutrophils % (Manual) Band Neutrophils % Lymphocytes % (Manual) Reactive Lymphs % Monocytes % (Manual) Basophils % (Manual) Metamyelocytes % Myelocytes % Nucleated RBC % Differential Comment Platelet Estimate Large Platelets Anisocytosis (manual) Thornton Cells Smear Path Review PT 54.9 H* D INR 5.0 D APTT 65 H D Puncture Site A line pCO2 19 L* pO2 75 L HCO3 5.7 L* ABG pH 7.03 L* ABG Total CO2 5.6 L ABG O2 Saturation 95.6 ABG Base Excess -24.2 L Brandon Test Na ABG Potassium 4.0 A-a O2 Difference 614.0 Respiratory Index 8.2 Sodium 140 141.0 Chloride 101 106.0 Glucose 49 L Lactate > 20.0 H* Vent Mode Prvc Mechanical Rate 30 FiO2 100.0 Tidal Volume 500 PEEP 5 Crit Value Called To Dr escalera Crit Value Called By Nicole turner cricket coach Crit Value Read Back Y Blood Gas Notified Time 2124 Potassium 4.4 Carbon Dioxide 13 L Anion Gap 31 H BUN 24 H Creatinine 2.2 H Est GFR ( Amer) 27 Est GFR (Non-Af Amer) 22 POC Glucose (mg/dL) Random Glucose 119 H Calcium 6.1 L Phosphorus 10.3 H Magnesium 2.2 Total Bilirubin 0.8 AST 6230 H ALT 1680 H Alkaline Phosphatase 140 H D Total Protein 2.5 L Albumin 1.2 L Globulin 1.4 L Albumin/Globulin Ratio 0.9 L Arterial Blood Potassium 4.0 Urine Color Urine Clarity Urine pH Ur Specific Miller Urine Protein Urine Glucose (UA) Urine Ketones Urine Blood Urine Nitrate Urine Bilirubin Urine Urobilinogen Ur Leukocyte Esterase Urine WBC (Auto) Urine RBC (Auto) Ur Squamous Epith Cells Urine Bacteria Hyaline Casts Blood Type Antibody Screen 04/25/18 04/25/18 04/25/18 21:50 21:52 22:20 WBC RBC Hgb Hct MCV MCH MCHC RDW Plt Count MPV Neut % (Auto) Lymph % (Auto) [place] % (Auto) Eos % (Auto) Baso % (Auto) Neut # (Auto) Lymph # (Auto) [place] # (Auto) Eos # (Auto) Baso # (Auto) Neutrophils % (Manual) Band Neutrophils % Lymphocytes % (Manual) Reactive Lymphs % Monocytes % (Manual) Basophils % (Manual) Metamyelocytes % Myelocytes % Nucleated RBC % Differential Comment Platelet Estimate Large Platelets Anisocytosis (manual) Thornton Cells Smear Path Review PT INR APTT Puncture Site pCO2 pO2 HCO3 ABG pH ABG Total CO2 ABG O2 Saturation ABG Base Excess Brandon Test ABG Potassium A-a O2 Difference Respiratory Index Sodium Chloride Glucose Lactate Vent Mode Mechanical Rate FiO2 Tidal Volume PEEP Crit Value Called To Crit Value Called By Crit Value Read Back Blood Gas Notified Time Potassium Carbon Dioxide Anion Gap BUN Creatinine Est GFR ( Amer) Est GFR (Non-Af Amer) POC Glucose (mg/dL) 49 L 47 L 114 H Random Glucose Calcium Phosphorus Magnesium Total Bilirubin AST ALT Alkaline Phosphatase Total Protein Albumin Globulin Albumin/Globulin Ratio Arterial Blood Potassium Urine Color Urine Clarity Urine pH Ur Specific Miller Urine Protein Urine Glucose (UA) Urine Ketones Urine Blood Urine Nitrate Urine Bilirubin Urine Urobilinogen Ur Leukocyte Esterase Urine WBC (Auto) Urine RBC (Auto) Ur Squamous Epith Cells Urine Bacteria Hyaline Casts Blood Type Antibody Screen 04/25/18 04/26/18 04/26/18 23:29 00:05 00:45 WBC 60.8 H* RBC 3.23 L Hgb 8.4 L D Hct 27.7 L MCV 86.0 MCH 26.2 L MCHC 30.4 L RDW 16.2 H Plt Count 70 L MPV 12.2 H Neut % (Auto) 81.8 H Lymph % (Auto) 14.4 L [place] % (Auto) 1.9 Eos % (Auto) 1.0 Baso % (Auto) 0.9 Neut # (Auto) 49.7 H Lymph # (Auto) 8.7 H [place] # (Auto) 1.2 H Eos # (Auto) 0.6 Baso # (Auto) 0.6 H Neutrophils % (Manual) 55 Band Neutrophils % 12 H* Lymphocytes % (Manual) 16 L Reactive Lymphs % Monocytes % (Manual) 8 Basophils % (Manual) 1 Metamyelocytes % 7 H Myelocytes % 1 H Nucleated RBC % 3 H Differential Comment Platelet Estimate Decreased L Large Platelets Anisocytosis (manual) Juanita Cells Smear Path Review PT INR APTT Puncture Site pCO2 pO2 HCO3 ABG pH ABG Total CO2 ABG O2 Saturation ABG Base Excess Brandon Test ABG Potassium A-a O2 Difference Respiratory Index Sodium Chloride Glucose Lactate Vent Mode Mechanical Rate FiO2 Tidal Volume PEEP Crit Value Called To Crit Value Called By Crit Value Read Back Blood Gas Notified Time Potassium Carbon Dioxide Anion Gap BUN Creatinine Est GFR ( Amer) Est GFR (Non-Af Amer) POC Glucose (mg/dL) 98 97 Random Glucose Calcium Phosphorus Magnesium Total Bilirubin AST ALT Alkaline Phosphatase Total Protein Albumin Globulin Albumin/Globulin Ratio Arterial Blood Potassium Urine Color Urine Clarity Urine pH Ur Specific Miller Urine Protein Urine Glucose (UA) Urine Ketones Urine Blood Urine Nitrate Urine Bilirubin Urine Urobilinogen Ur Leukocyte Esterase Urine WBC (Auto) Urine RBC (Auto) Ur Squamous Epith Cells Urine Bacteria Hyaline Casts Blood Type Antibody Screen 04/26/18 04/26/18 04/26/18 00:45 05:36 06:04 WBC RBC Hgb Hct MCV MCH MCHC RDW Plt Count MPV Neut % (Auto) Lymph % (Auto) [place] % (Auto) Eos % (Auto) Baso % (Auto) Neut # (Auto) Lymph # (Auto) [place] # (Auto) Eos # (Auto) Baso # (Auto) Neutrophils % (Manual) Band Neutrophils % Lymphocytes % (Manual) Reactive Lymphs % Monocytes % (Manual) Basophils % (Manual) Metamyelocytes % Myelocytes % Nucleated RBC % Differential Comment Platelet Estimate Large Platelets Anisocytosis (manual) Juanita Cells Smear Path Review PT INR APTT Puncture Site A-ine pCO2 22 L pO2 72 L HCO3 ABG pH < 6.80 L* ABG Total CO2 ABG O2 Saturation 94.2 L ABG Base Excess Brandon Test Na ABG Potassium 6.4 H* A-a O2 Difference 614.0 Respiratory Index 8.5 Sodium 143 139.0 Chloride 103 105.0 Glucose 113 H Lactate > 20.0 H* Vent Mode Prvc Mechanical Rate 30 FiO2 100.0 Tidal Volume 500 PEEP 5 Crit 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 Crit Value Called By Aretha marrufo rt Crit Value Read Back Y Blood Gas Notified Time 549 Potassium 4.5 Carbon Dioxide 7 L* D Anion Gap 37 H BUN 20 H Creatinine 2.3 H Est GFR ( Amer) 26 Est GFR (Non-Af Amer) 21 POC Glucose (mg/dL) 71 Random Glucose 142 H Calcium 5.7 L* Phosphorus 9.8 H Magnesium 2.0 Total Bilirubin 0.9 AST 9376 H ALT 1993 H Alkaline Phosphatase 143 H Total Protein 2.2 L Albumin 1.0 L Globulin 1.2 L Albumin/Globulin Ratio 0.9 L Arterial Blood Potassium 6.4 H* Urine Color Urine Clarity Urine pH Ur Specific Miller Urine Protein Urine Glucose (UA) Urine Ketones Urine Blood Urine Nitrate Urine Bilirubin Urine Urobilinogen Ur Leukocyte Esterase Urine WBC (Auto) Urine RBC (Auto) Ur Squamous Epith Cells Urine Bacteria Hyaline Casts Blood Type Antibody Screen 04/26/18 04/26/18 06:22 06:22 WBC 52.0 H* RBC 2.20 L Hgb 5.7 L* D Hct 20.4 L MCV 92.8 D MCH 25.8 L MCHC 27.8 L RDW 17.4 H Plt Count 34 L D MPV 13.1 H Neut % (Auto) Lymph % (Auto) [place] % (Auto) Eos % (Auto) Baso % (Auto) Neut # (Auto) Lymph # (Auto) [place] # (Auto) Eos # (Auto) Baso # (Auto) Neutrophils % (Manual) Band Neutrophils % Lymphocytes % (Manual) Reactive Lymphs % Monocytes % (Manual) Basophils % (Manual) Metamyelocytes % Myelocytes % Nucleated RBC % Differential Comment Platelet Estimate Large Platelets Anisocytosis (manual) [place] Cells Smear Path Review PT INR APTT Puncture Site pCO2 pO2 HCO3 ABG pH ABG Total CO2 ABG O2 Saturation ABG Base Excess Brandon Test ABG Potassium A-a O2 Difference Respiratory Index Sodium 143 Chloride 107 Glucose Lactate Vent Mode Mechanical Rate FiO2 Tidal Volume PEEP Crit Value Called To Crit Value Called By Crit Value Read Back Blood Gas Notified Time Potassium 6.4 H* D Carbon Dioxide 5 L* D Anion Gap 38 H BUN 17 Creatinine 2.5 H Est GFR ( Amer) 23 Est GFR (Non-Af Amer) 19 POC Glucose (mg/dL) Random Glucose 113 H Calcium 5.2 L* Phosphorus 12.0 H Magnesium 2.0 Total Bilirubin 0.6 AST 8636 H ALT 1632 H Alkaline Phosphatase 109 Total Protein 2.0 L Albumin 1.0 L Globulin 1.0 L Albumin/Globulin Ratio 1.0 Arterial Blood Potassium Urine Color Urine Clarity Urine pH Ur Specific Miller Urine Protein Urine Glucose (UA) Urine Ketones Urine Blood Urine Nitrate Urine Bilirubin Urine Urobilinogen Ur Leukocyte Esterase Urine WBC (Auto) Urine RBC (Auto) Ur Squamous Epith Cells Urine Bacteria Hyaline Casts Blood Type Antibody Screen Fingerstick Blood Sugar Results: 97 Review of Systems - Review of Systems Systems not reviewed;Unavailable: Unstable Vital Signs (code blue) Critical Care Progress Note - Nutrition Nutrition: Nutrition Category Date Time Status NPO Diet [DIET] Diets 04/25/18 Breakfast Active Assessment/Plan - Assessment and Plan (Free Text) Assessment: PEA - Pt is at maximum rate of levophed gtt, phenylephrine gtt, vasopressin gtt, epinephrine gtt. Pt is on bicarb gtt. - hyperkalemia noted; calcium gluconate - Pt managed as per ACLS protocol - ROSC achieved at 07:04 - CBC, CMP, ABG, CXR - continue current treatment Case was reviewed and discussed with attending physician, Dr. Dodge <Norma Escalera - Last Filed: 04/27/18 06:46> CCU Objective - Vital Signs / Intake & Output Intake and Output (Last 8hrs): Intake & Output 04/26/18 04/26/18 04/27/18 14:59 22:59 06:59 Intake Total 555.4 Output Total 100 Balance 455.4 Intake: Intake, IV Amount 500.4 Right Distal Port Femoral 100 Right Medial Port Femoral 2.4 Right Medial Port Femoral 150 2 Right Proximal Port 90 Femoral Right Proximal Port 58 Femoral 2 Right Subclavian 100 Blood Product 55 Red Blood Cells Cpd As1 55 Lr Unit [id number] Output: Drainage 100 Left Abdomen 100 Urine 0 Urethral ([place]) 0 - Patient Studies Lab Studies: Microbiology Studies 04/25/18 18:11 Urine Culture - Final Urine,[place] No Growth (<1,000 CFU/ML) 04/25/18 16:44 Gram Stain - Final Abdomen Wound Culture - Preliminary NO GROWTH AFTER 24 HOURS 04/25/18 06:30 MRSA Culture (Admit) - Final Naris MRSA NOT DETECTED 04/25/18 11:29 Blood Culture - Preliminary Blood-Thru Central Line NO GROWTH AFTER 24 HOURS 04/25/18 11:29 Blood Culture - Preliminary Blood-Thru Central Line NO GROWTH AFTER 24 HOURS 04/23/18 09:30 Blood Culture - Preliminary Blood NO GROWTH AFTER 3 DAYS 04/23/18 09:00 Blood Culture - Preliminary Blood NO GROWTH AFTER 3 DAYS Lab Studies 04/26/18 04/26/18 04/25/18 Range/Units 06:22 06:22 05:30 Neut % (Auto) 89.0 H (50.0-75.0) % Lymph % (Auto) 8.0 L (20.0-40.0) % [place] % (Auto) 2.0 (0.0-10.0) % Eos % (Auto) 1.0 (0.0-4.0) % Baso % (Auto) 0.0 (0.0-2.0) % Neut # (Auto) 46.2 H (1.8-7.0) K/uL Lymph # (Auto) 4.2 (1.0-4.3) K/uL [place] # (Auto) 1.1 H (0.0-0.8) K/uL Eos # (Auto) 0.5 (0.0-0.7) K/uL Baso # (Auto) 0.0 (0.0-0.2) K/uL Neutrophils % (Manual) 52 (50-75) % Band Neutrophils % 12 H* (0-2) % Lymphocytes % (Manual) 13 L (20-40) % Monocytes % (Manual) 2 (0-10) % Metamyelocytes % 5 H (0-0) % Myelocytes % 13 H (0-0) % Promyelocytes % 3 H (0-0) % Nucleated RBC % 1 H (0-0) % Toxic Granulation Present Platelet Estimate Markedly decreased L (NORMAL) Hypochromasia (manual) Moderate Anisocytosis (manual) Slight Juanita Cells Moderate Sodium 143 (132-148) mmol/L Potassium 6.4 H* D (3.6-5.2) mmol/L Chloride 107 (98-107) mmol/L Carbon Dioxide 5 L* D (22-30) mmol/L Anion Gap 38 H (10-20) BUN 17 (7-17) mg/dL Creatinine 2.5 H (0.7-1.2) mg/dL Est GFR ( Amer) 23 Est GFR (Non-Af Amer) 19 Random Glucose 113 H (65-105) mg/dL Calcium 5.2 L* (8.6-10.4) mg/dl Phosphorus 12.0 H (2.5-4.5) mg/dL Magnesium 2.0 (1.6-2.3) mg/dL Total Bilirubin 0.6 (0.2-1.3) mg/dL AST 8636 H (14-36) U/L ALT 1632 H (9-52) U/L Alkaline Phosphatase 109 (38-126) U/L Total Protein 2.0 L (6.3-8.3) g/dL Albumin 1.0 L (3.5-5.0) g/dL Globulin 1.0 L (2.2-3.9) gm/dL Albumin/Globulin Ratio 1.0 (1.0-2.1) Blood Type O NEGATIVE Antibody Screen Negative Laboratory Results - last 24 hr 04/25/18 04/26/18 04/26/18 05:30 06:22 06:22 Neut % (Auto) 89.0 H Lymph % (Auto) 8.0 L [place] % (Auto) 2.0 Eos % (Auto) 1.0 Baso % (Auto) 0.0 Neut # (Auto) 46.2 H Lymph # (Auto) 4.2 [place] # (Auto) 1.1 H Eos # (Auto) 0.5 Baso # (Auto) 0.0 Neutrophils % (Manual) 52 Band Neutrophils % 12 H* Lymphocytes % (Manual) 13 L Monocytes % (Manual) 2 Metamyelocytes % 5 H Myelocytes % 13 H Promyelocytes % 3 H Nucleated RBC % 1 H Toxic Granulation Present Platelet Estimate Markedly decreased L Hypochromasia (manual) Moderate Anisocytosis (manual) Slight Juanita Cells Moderate Sodium 143 Potassium 6.4 H* D Chloride 107 Carbon Dioxide 5 L* D Anion Gap 38 H BUN 17 Creatinine 2.5 H Est GFR ( Amer) 23 Est GFR (Non-Af Amer) 19 Random Glucose 113 H Calcium 5.2 L* Phosphorus 12.0 H Magnesium 2.0 Total Bilirubin 0.6 AST 8636 H ALT 1632 H Alkaline Phosphatase 109 Total Protein 2.0 L Albumin 1.0 L Globulin 1.0 L Albumin/Globulin Ratio 1.0 Blood Type O NEGATIVE Antibody Screen Negative Critical Care Progress Note - Nutrition Nutrition: Nutrition Category Date Time Status NPO Diet [DIET] Diets 04/25/18 Breakfast Active
[2018-04-26 08:08] VITALS: BP 186/78; PULSE 132; RESP 0; O2SAT 70
--- NOTE | 2018-04-26 08:14 | CP.CCUPN ---
CCU Subjective - Physician Review Subjective (Free Text): Chance Vazquez DO PGY-1, Code Blue note Pt noted to be in asystole by nurse. Code blue called at 07:26. Pt remains at maximum rate of levophed gtt, phenylephrine gtt, vasopressin gtt, epinephrine gtt. Pt is on bicarb gtt. Pt was managed as per ACLS protocol (see code sheet). ROSC was not achieved. Pt was pronounced at 07:41. 04/26/18 08:17 CCU Objective - Vital Signs / Intake & Output Vital Signs (Last 4 hours): Vital Signs Temp Pulse Resp BP Pulse Ox 04/26/18 08:00 0 L 04/26/18 07:31 132 H 11 L 186/78 H 70 L 04/26/18 07:20 93.2 F L 91 H 30 H 71/27 L 04/26/18 07:02 138 H 8 L 234/32 H 54 L 04/26/18 06:01 68 0 L 68/38 L 04/26/18 06:00 94.3 F L 04/26/18 05:32 72 5 L 81/40 L 04/26/18 04:33 81 30 H 78/41 L 04/26/18 04:15 85 72/34 L Intake and Output (Last 8hrs): Intake & Output 04/25/18 04/26/18 04/26/18 22:59 06:59 14:59 Intake Total 4404.7 7640.2 555.4 Output Total 575 1593 100 Balance 3829.7 6047.2 455.4 Weight 75.432 kg Intake: IV 515 1764 Intake, IV Amount 2814.7 5876.2 500.4 Right Distal Port Femoral 455.0 2673 100 Right Internal Jugular 400 Right Medial Port Femoral 14.4 19.2 2.4 Right Medial Port Femoral 450 1200 150 2 Right Proximal Port 495 720 90 Femoral Right Proximal Port 135.3 464 58 Femoral 2 Right Subclavian 625 800 100 Rt SC Y-port 240 Blood Product 975 55 Red Blood Cells Cpd As1 325 Lr Unit [id number] Red Blood Cells Cpd As1 55 Lr Unit [id number] Other 100 Red Blood Cells Cpd As1 100 Lr Unit [id number] Output: Drainage 480 1580 100 Left Abdomen 480 1580 100 Urine 95 13 0 Urethral ([place]) 45 13 0 Other: # Bowel Movements 1 - Physical Exam Head: Positive for: Normocephalic Pupils: Positive for: PERRL Extroacular Muscles: Positive for: EOMI Conjunctiva: Positive for: Normal Mouth: Positive for: Moist Mucous Membranes, Other ((+) ETT, (+) NGT) Respiratory/Chest: Positive for: Clear to Auscultation Cardiovascular: Positive for: Tachycardic Abdomen: Negative for: Normal Bowel Sounds (decreased bowel sounds in all four quadrants), Peritoneal Signs ((+) firmness, non-rigid) Upper Extremity: Positive for: Normal Inspection, NORMAL PULSES Lower Extremity: Negative for: NORMAL PULSES (bilateral DPs not obtainable by dopplars prior to femoral TLC placement, (+) popliteal and femoral pulses on palpation) Neurological: Positive for: Other (intubated and sedated). Negative for: GCS=15 Skin: Positive for: Warm, Dry Psychiatric: Positive for: Other (intubated and sedated) - Medications Active Medications: Active Medications Generic Name Dose Route Start Last Admin Trade Name Freq PRN Reason Stop Dose Admin Acetaminophen 650 mg 04/23/18 17:44 Tylenol 325mg Tab PO Q8 PRN fever Aspirin 81 mg 04/24/18 10:00 04/25/18 10:18 Aspirin Chewable PO Not Given DAILY OMSAR Dextrose 0 gm 04/25/18 13:33 Glutose 15 PO ONCE PRN Hypoglycemia Protocol Protocol Dextrose 0 ml 04/25/18 13:33 04/25/18 22:01 Dextrose 50% Inj IV 50 ml STAT PRN Administration Hypoglycemia Protocol Protocol Ergocalciferol 1 cap 04/24/18 10:00 04/24/18 09:29 Drisdol 50,000 Intl Units Cap PO 1 cap QWK OSMAR Administration Famotidine 20 mg 04/26/18 10:00 Pepcid IVP DAILY OSMAR Glucagon 0 mg 04/25/18 13:33 Glucagen Diagnostic Kit IM STAT PRN Hypoglycemia Protocol Protocol Hydrocortisone Sodium Succinate 100 mg 04/25/18 17:00 04/26/18 02:00 Solu-Cortef IV 100 mg Q8H OSMAR Administration Dexmedetomidine HCl 200 mcg/ 50 mls @ 3.74 mls/hr 04/25/18 06:07 04/25/18 13: 00 Sodium Chloride IV 0 mcg/kg/hr TITR PRN 0 mls/hr Agitation Titration Protocol 0.2 MCG/KG/HR Meropenem 500 mg/ Sodium 100 mls @ 100 mls/hr 04/25/18 06:30 04/26/18 06:58 Chloride IVPB Not Given Q8H OSMAR Protocol Metronidazole 500 mg in 100 mls @ 100 mls/hr 04/25/18 07:30 04/25/18 23:57 Flagyl IVPB 100 mls/hr Q8H OSMAR Administration Protocol Lactated Ringer's 1,000 mls @ 125 mls/hr 04/25/18 07:58 04/25/18 23:59 Lactated Ringer's IV Not Given .Q8H OSMAR Norepinephrine Bitartrate 8 mg 258 mls @ 7.74 mls/hr 04/25/18 09:25 04/26/18 02:41 / Dextrose IV 30 mcg/min .Q24H PRN 58.05 mls/hr TITRATE PER MD ORDER Administration Protocol 4 MCG/MIN Phenylephrine HCl 30 mg/ 253 mls @ 10.12 mls/hr 04/25/18 12:35 04/26/18 04:15 Sodium Chloride IV 180 mcg/min .Q24H PRN 91.08 mls/hr TITRATE PER MD ORDER Administration Protocol 20 MCG/MIN Dextrose 1,000 mls @ 0 mls/hr 04/25/18 13:33 Dextrose 5% In Water 1000 Ml IV .Q0M PRN Hypoglycemia Protocol Protocol Per Protocol Vasopressin 40 units/ Sodium 40 mls @ 0.6 mls/hr 04/25/18 18:15 04/25/18 18: 00 Chloride IV 0.04 units/min .Q24H OSMAR 2.4 mls/hr Protocol Titration 0.01 UNITS/MIN Epinephrine HCl 4 mg/ Sodium 1,004 mls @ 15.06 mls/hr 04/25/18 19:45 02:43 Chloride IV 10 mcg/min .Q24H PRN 150.6 mls/hr TITRATE PER MD ORDER Administration Protocol 1 MCG/MIN Sodium Bicarbonate 150 meq/ 1,150 mls @ 100 mls/hr 04/25/18 22:15 04/25/18 22 :40 Dextrose IV 100 mls/hr .[id number] OSMAR Administration Insulin Human Regular 0 unit 04/25/18 18:00 04/26/18 06:00 Novolin R SC Not Given Q6 [facility] Protocol Ondansetron HCl 4 mg 04/23/18 17:42 04/24/18 13:09 Zofran Inj IVP 4 mg Q8 PRN Administration Nausea/Vomiting Vancomycin HCl 500 mg 04/24/18 14:00 04/25/18 22:00 Vancocin (Oral Or Rectal Use) PO 500 mg QID OSMAR Administration Protocol - Patient Studies Lab Studies: Microbiology Studies 04/25/18 16:44 Gram Stain - Final Abdomen 04/23/18 09:30 Blood Culture - Preliminary Blood NO GROWTH AFTER 48 HOURS 04/23/18 09:00 Blood Culture - Preliminary Blood NO GROWTH AFTER 48 HOURS Lab Studies 04/26/18 04/26/18 04/26/18 Range/Units 06:22 06:22 06:04 WBC 52.0 H* (4.8-10.8) K/uL RBC 2.20 L (3.80-5.20) Mil/uL Hgb 5.7 L* D (11.0-16.0) g/dL Hct 20.4 L (34.0-47.0) % MCV 92.8 D (81.0-99.0) fL MCH 25.8 L (27.0-31.0) pg MCHC 27.8 L (33.0-37.0) g/dL RDW 17.4 H (11.5-14.5) % Plt Count 34 L D (130-400) K/uL MPV 13.1 H (7.2-11.7) fL Neut % (Auto) (50.0-75.0) % Lymph % (Auto) (20.0-40.0) % Frontier % (Auto) (0.0-10.0) % Eos % (Auto) (0.0-4.0) % Baso % (Auto) (0.0-2.0) % Neut # (Auto) (1.8-7.0) K/uL Lymph # (Auto) (1.0-4.3) K/uL Frontier # (Auto) (0.0-0.8) K/uL Eos # (Auto) (0.0-0.7) K/uL Baso # (Auto) (0.0-0.2) K/uL Neutrophils % (Manual) (50-75) % Band Neutrophils % (0-2) % Lymphocytes % (Manual) (20-40) % Reactive Lymphs % (0-0) % Monocytes % (Manual) (0-10) % Basophils % (Manual) (0-2) % Metamyelocytes % (0-0) % Myelocytes % (0-0) % Nucleated RBC % (0-0) % Differential Comment Platelet Estimate (NORMAL) Large Platelets Anisocytosis (manual) [place] Cells Smear Path Review PT (9.7-12.2) SECONDS INR APTT (21-34) SECONDS Puncture Site pCO2 (35-45) mm/Hg pO2 (80-100) mm/Hg HCO3 (21-28) mmol/L ABG pH (7.35-7.45) ABG Total CO2 (22-28) mmol/L ABG O2 Saturation (95-98) % ABG Base Excess (-2.0-3.0) mmol/L Brandon Test ABG Potassium (3.6-5.2) mmol/L A-a O2 Difference mm/Hg Respiratory Index Sodium 143 (132-148) mmol/l Chloride 107 (98-107) mmol/L Glucose (65-105) mg/dl Lactate (0.7-2.1) mmol/L Vent Mode Mechanical Rate FiO2 % Tidal Volume PEEP Crit Value Called To Crit Value Called By Crit Value Read Back Blood Gas Notified Time Potassium 6.4 H* D (3.6-5.2) mmol/L Carbon Dioxide 5 L* D (22-30) mmol/L Anion Gap 38 H (10-20) BUN 17 (7-17) mg/dL Creatinine 2.5 H (0.7-1.2) mg/dL Est GFR ( Amer) 23 Est GFR (Non-Af Amer) 19 POC Glucose (mg/dL) 71 (65-110) mg/dL Random Glucose 113 H (65-105) mg/dL Calcium 5.2 L* (8.6-10.4) mg/dl Phosphorus 12.0 H (2.5-4.5) mg/dL Magnesium 2.0 (1.6-2.3) mg/dL Total Bilirubin 0.6 (0.2-1.3) mg/dL AST 8636 H (14-36) U/L ALT 1632 H (9-52) U/L Alkaline Phosphatase 109 (38-126) U/L Total Protein 2.0 L (6.3-8.3) g/dL Albumin 1.0 L (3.5-5.0) g/dL Globulin 1.0 L (2.2-3.9) gm/dL Albumin/Globulin Ratio 1.0 (1.0-2.1) Arterial Blood Potassium (3.6-5.2) mmol/L Urine Color (YELLOW) Urine Clarity (Clear) Urine pH (5.0-8.0) Ur Specific [place] (1.003-1.030) Urine Protein (NEGATIVE) mg/dL Urine Glucose (UA) (Normal) mg/dL Urine Ketones (NEGATIVE) mg/dL Urine Blood (NEGATIVE) Urine Nitrate (NEGATIVE) Urine Bilirubin (NEGATIVE) Urine Urobilinogen (0.2-1.0) mg/dL Ur Leukocyte Esterase (Negative) Justyn/uL Urine WBC (Auto) (0-5) /hpf Urine RBC (Auto) (0-3) /hpf Ur Squamous Epith Cells (0-5) /hpf Urine Bacteria (<OCC) Hyaline Casts (0-2) /lpf Blood Type Antibody Screen 04/26/18 04/26/18 04/26/18 Range/Units 05:36 00:45 00:45 WBC 60.8 H* (4.8-10.8) K/uL RBC 3.23 L (3.80-5.20) Mil/uL Hgb 8.4 L D (11.0-16.0) g/dL Hct 27.7 L (34.0-47.0) % MCV 86.0 (81.0-99.0) fL MCH 26.2 L (27.0-31.0) pg MCHC 30.4 L (33.0-37.0) g/dL RDW 16.2 H (11.5-14.5) % Plt Count 70 L (130-400) K/uL MPV 12.2 H (7.2-11.7) fL Neut % (Auto) 81.8 H (50.0-75.0) % Lymph % (Auto) 14.4 L (20.0-40.0) % Frontier % (Auto) 1.9 (0.0-10.0) % Eos % (Auto) 1.0 (0.0-4.0) % Baso % (Auto) 0.9 (0.0-2.0) % Neut # (Auto) 49.7 H (1.8-7.0) K/uL Lymph # (Auto) 8.7 H (1.0-4.3) K/uL Frontier # (Auto) 1.2 H (0.0-0.8) K/uL Eos # (Auto) 0.6 (0.0-0.7) K/uL Baso # (Auto) 0.6 H (0.0-0.2) K/uL Neutrophils % (Manual) 55 (50-75) % Band Neutrophils % 12 H* (0-2) % Lymphocytes % (Manual) 16 L (20-40) % Reactive Lymphs % (0-0) % Monocytes % (Manual) 8 (0-10) % Basophils % (Manual) 1 (0-2) % Metamyelocytes % 7 H (0-0) % Myelocytes % 1 H (0-0) % Nucleated RBC % 3 H (0-0) % Differential Comment Platelet Estimate Decreased L (NORMAL) Large Platelets Anisocytosis (manual) Juanita Cells Smear Path Review PT (9.7-12.2) SECONDS INR APTT (21-34) SECONDS Puncture Site A-ine pCO2 22 L (35-45) mm/Hg pO2 72 L (80-100) mm/Hg HCO3 (21-28) mmol/L ABG pH < 6.80 L* (7.35-7.45) ABG Total CO2 (22-28) mmol/L ABG O2 Saturation 94.2 L (95-98) % ABG Base Excess (-2.0-3.0) mmol/L Brandon Test Na ABG Potassium 6.4 H* (3.6-5.2) mmol/L A-a O2 Difference 614.0 mm/Hg Respiratory Index 8.5 Sodium 139.0 143 (132-148) mmol/l Chloride 105.0 103 (98-107) mmol/L Glucose 113 H (65-105) mg/dl Lactate > 20.0 H* (0.7-2.1) mmol/L Vent Mode Prvc Mechanical Rate 30 FiO2 100.0 % Tidal Volume 500 PEEP 5 Crit Value Called To Karen tomlin agricultural extension officer Crit Value Called By Aretha marrufo rt Crit Value Read Back Y Blood Gas Notified Time 549 Potassium 4.5 (3.6-5.2) mmol/L Carbon Dioxide 7 L* D (22-30) mmol/L Anion Gap 37 H (10-20) BUN 20 H (7-17) mg/dL Creatinine 2.3 H (0.7-1.2) mg/dL Est GFR ( Amer) 26 Est GFR (Non-Af Amer) 21 POC Glucose (mg/dL) (65-110) mg/dL Random Glucose 142 H (65-105) mg/dL Calcium 5.7 L* (8.6-10.4) mg/dl Phosphorus 9.8 H (2.5-4.5) mg/dL Magnesium 2.0 (1.6-2.3) mg/dL Total Bilirubin 0.9 (0.2-1.3) mg/dL AST 9376 H (14-36) U/L ALT 1993 H (9-52) U/L Alkaline Phosphatase 143 H (38-126) U/L Total Protein 2.2 L (6.3-8.3) g/dL Albumin 1.0 L (3.5-5.0) g/dL Globulin 1.2 L (2.2-3.9) gm/dL Albumin/Globulin Ratio 0.9 L (1.0-2.1) Arterial Blood Potassium 6.4 H* (3.6-5.2) mmol/L Urine Color (YELLOW) Urine Clarity (Clear) Urine pH (5.0-8.0) Ur Specific [place] (1.003-1.030) Urine Protein (NEGATIVE) mg/dL Urine Glucose (UA) (Normal) mg/dL Urine Ketones (NEGATIVE) mg/dL Urine Blood (NEGATIVE) Urine Nitrate (NEGATIVE) Urine Bilirubin (NEGATIVE) Urine Urobilinogen (0.2-1.0) mg/dL Ur Leukocyte Esterase (Negative) Justyn/uL Urine WBC (Auto) (0-5) /hpf Urine RBC (Auto) (0-3) /hpf Ur Squamous Epith Cells (0-5) /hpf Urine Bacteria (<OCC) Hyaline Casts (0-2) /lpf Blood Type Antibody Screen 04/26/18 04/25/18 04/25/18 Range/Units 00:05 23:29 22:20 WBC (4.8-10.8) K/uL RBC (3.80-5.20) Mil/uL Hgb (11.0-16.0) g/dL Hct (34.0-47.0) % MCV (81.0-99.0) fL MCH (27.0-31.0) pg MCHC (33.0-37.0) g/dL RDW (11.5-14.5) % Plt Count (130-400) K/uL MPV (7.2-11.7) fL Neut % (Auto) (50.0-75.0) % Lymph % (Auto) (20.0-40.0) % Frontier % (Auto) (0.0-10.0) % Eos % (Auto) (0.0-4.0) % Baso % (Auto) (0.0-2.0) % Neut # (Auto) (1.8-7.0) K/uL Lymph # (Auto) (1.0-4.3) K/uL Frontier # (Auto) (0.0-0.8) K/uL Eos # (Auto) (0.0-0.7) K/uL Baso # (Auto) (0.0-0.2) K/uL Neutrophils % (Manual) (50-75) % Band Neutrophils % (0-2) % Lymphocytes % (Manual) (20-40) % Reactive Lymphs % (0-0) % Monocytes % (Manual) (0-10) % Basophils % (Manual) (0-2) % Metamyelocytes % (0-0) % Myelocytes % (0-0) % Nucleated RBC % (0-0) % Differential Comment Platelet Estimate (NORMAL) Large Platelets Anisocytosis (manual) Juanita Cells Smear Path Review PT (9.7-12.2) SECONDS INR APTT (21-34) SECONDS Puncture Site pCO2 (35-45) mm/Hg pO2 (80-100) mm/Hg HCO3 (21-28) mmol/L ABG pH (7.35-7.45) ABG Total CO2 (22-28) mmol/L ABG O2 Saturation (95-98) % ABG Base Excess (-2.0-3.0) mmol/L Brandon Test ABG Potassium (3.6-5.2) mmol/L A-a O2 Difference mm/Hg Respiratory Index Sodium (132-148) mmol/l Chloride (98-107) mmol/L Glucose (65-105) mg/dl Lactate (0.7-2.1) mmol/L Vent Mode Mechanical Rate FiO2 % Tidal Volume PEEP Crit Value Called To Crit Value Called By Crit Value Read Back Blood Gas Notified Time Potassium (3.6-5.2) mmol/L Carbon Dioxide (22-30) mmol/L Anion Gap (10-20) BUN (7-17) mg/dL Creatinine (0.7-1.2) mg/dL Est GFR ( Amer) Est GFR (Non-Af Amer) POC Glucose (mg/dL) 97 98 114 H (65-110) mg/dL Random Glucose (65-105) mg/dL Calcium (8.6-10.4) mg/dl Phosphorus (2.5-4.5) mg/dL Magnesium (1.6-2.3) mg/dL Total Bilirubin (0.2-1.3) mg/dL AST (14-36) U/L ALT (9-52) U/L Alkaline Phosphatase (38-126) U/L Total Protein (6.3-8.3) g/dL Albumin (3.5-5.0) g/dL Globulin (2.2-3.9) gm/dL Albumin/Globulin Ratio (1.0-2.1) Arterial Blood Potassium (3.6-5.2) mmol/L Urine Color (YELLOW) Urine Clarity (Clear) Urine pH (5.0-8.0) Ur Specific [place] (1.003-1.030) Urine Protein (NEGATIVE) mg/dL Urine Glucose (UA) (Normal) mg/dL Urine Ketones (NEGATIVE) mg/dL Urine Blood (NEGATIVE) Urine Nitrate (NEGATIVE) Urine Bilirubin (NEGATIVE) Urine Urobilinogen (0.2-1.0) mg/dL Ur Leukocyte Esterase (Negative) Justyn/uL Urine WBC (Auto) (0-5) /hpf Urine RBC (Auto) (0-3) /hpf Ur Squamous Epith Cells (0-5) /hpf Urine Bacteria (<OCC) Hyaline Casts (0-2) /lpf Blood Type Antibody Screen 04/25/18 04/25/18 04/25/18 Range/Units 21:52 21:50 21:33 WBC (4.8-10.8) K/uL RBC (3.80-5.20) Mil/uL Hgb (11.0-16.0) g/dL Hct (34.0-47.0) % MCV (81.0-99.0) fL MCH (27.0-31.0) pg MCHC (33.0-37.0) g/dL RDW (11.5-14.5) % Plt Count (130-400) K/uL MPV (7.2-11.7) fL Neut % (Auto) (50.0-75.0) % Lymph % (Auto) (20.0-40.0) % Frontier % (Auto) (0.0-10.0) % Eos % (Auto) (0.0-4.0) % Baso % (Auto) (0.0-2.0) % Neut # (Auto) (1.8-7.0) K/uL Lymph # (Auto) (1.0-4.3) K/uL Frontier # (Auto) (0.0-0.8) K/uL Eos # (Auto) (0.0-0.7) K/uL Baso # (Auto) (0.0-0.2) K/uL Neutrophils % (Manual) (50-75) % Band Neutrophils % (0-2) % Lymphocytes % (Manual) (20-40) % Reactive Lymphs % (0-0) % Monocytes % (Manual) (0-10) % Basophils % (Manual) (0-2) % Metamyelocytes % (0-0) % Myelocytes % (0-0) % Nucleated RBC % (0-0) % Differential Comment Platelet Estimate (NORMAL) Large Platelets Anisocytosis (manual) Juanita Cells Smear Path Review PT 54.9 H* D (9.7-12.2) SECONDS INR 5.0 D APTT 65 H D (21-34) SECONDS Puncture Site pCO2 (35-45) mm/Hg pO2 (80-100) mm/Hg HCO3 (21-28) mmol/L ABG pH (7.35-7.45) ABG Total CO2 (22-28) mmol/L ABG O2 Saturation (95-98) % ABG Base Excess (-2.0-3.0) mmol/L Brandon Test ABG Potassium (3.6-5.2) mmol/L A-a O2 Difference mm/Hg Respiratory Index Sodium (132-148) mmol/l Chloride (98-107) mmol/L Glucose (65-105) mg/dl Lactate (0.7-2.1) mmol/L Vent Mode Mechanical Rate FiO2 % Tidal Volume PEEP Crit Value Called To Crit Value Called By Crit Value Read Back Blood Gas Notified Time Potassium (3.6-5.2) mmol/L Carbon Dioxide (22-30) mmol/L Anion Gap (10-20) BUN (7-17) mg/dL Creatinine (0.7-1.2) mg/dL Est GFR ( Amer) Est GFR (Non-Af Amer) POC Glucose (mg/dL) 47 L 49 L (65-110) mg/dL Random Glucose (65-105) mg/dL Calcium (8.6-10.4) mg/dl Phosphorus (2.5-4.5) mg/dL Magnesium (1.6-2.3) mg/dL Total Bilirubin (0.2-1.3) mg/dL AST (14-36) U/L ALT (9-52) U/L Alkaline Phosphatase (38-126) U/L Total Protein (6.3-8.3) g/dL Albumin (3.5-5.0) g/dL Globulin (2.2-3.9) gm/dL Albumin/Globulin Ratio (1.0-2.1) Arterial Blood Potassium (3.6-5.2) mmol/L Urine Color (YELLOW) Urine Clarity (Clear) Urine pH (5.0-8.0) Ur Specific [place] (1.003-1.030) Urine Protein (NEGATIVE) mg/dL Urine Glucose (UA) (Normal) mg/dL Urine Ketones (NEGATIVE) mg/dL Urine Blood (NEGATIVE) Urine Nitrate (NEGATIVE) Urine Bilirubin (NEGATIVE) Urine Urobilinogen (0.2-1.0) mg/dL Ur Leukocyte Esterase (Negative) Justyn/uL Urine WBC (Auto) (0-5) /hpf Urine RBC (Auto) (0-3) /hpf Ur Squamous Epith Cells (0-5) /hpf Urine Bacteria (<OCC) Hyaline Casts (0-2) /lpf Blood Type Antibody Screen 04/25/18 04/25/18 04/25/18 Range/Units 21:20 18:12 18:12 WBC 55.8 H* (4.8-10.8) K/uL RBC 3.96 (3.80-5.20) Mil/uL Hgb 10.4 L D (11.0-16.0) g/dL Hct 33.5 L (34.0-47.0) % MCV 84.6 (81.0-99.0) fL MCH 26.2 L (27.0-31.0) pg MCHC 30.9 L (33.0-37.0) g/dL RDW 15.9 H (11.5-14.5) % Plt Count 76 L D (130-400) K/uL MPV 9.2 (7.2-11.7) fL Neut % (Auto) (50.0-75.0) % Lymph % (Auto) (20.0-40.0) % [place] % (Auto) (0.0-10.0) % Eos % (Auto) (0.0-4.0) % Baso % (Auto) (0.0-2.0) % Neut # (Auto) (1.8-7.0) K/uL Lymph # (Auto) (1.0-4.3) K/uL [place] # (Auto) (0.0-0.8) K/uL Eos # (Auto) (0.0-0.7) K/uL Baso # (Auto) (0.0-0.2) K/uL Neutrophils % (Manual) (50-75) % Band Neutrophils % (0-2) % Lymphocytes % (Manual) (20-40) % Reactive Lymphs % (0-0) % Monocytes % (Manual) (0-10) % Basophils % (Manual) (0-2) % Metamyelocytes % (0-0) % Myelocytes % (0-0) % Nucleated RBC % (0-0) % Differential Comment Platelet Estimate (NORMAL) Large Platelets Anisocytosis (manual) Juanita Cells Smear Path Review PT (9.7-12.2) SECONDS INR APTT (21-34) SECONDS Puncture Site A line pCO2 19 L* (35-45) mm/Hg pO2 75 L (80-100) mm/Hg HCO3 5.7 L* (21-28) mmol/L ABG pH 7.03 L* (7.35-7.45) ABG Total CO2 5.6 L (22-28) mmol/L ABG O2 Saturation 95.6 (95-98) % ABG Base Excess -24.2 L (-2.0-3.0) mmol/L Brandon Test Na ABG Potassium 4.0 (3.6-5.2) mmol/L A-a O2 Difference 614.0 mm/Hg Respiratory Index 8.2 Sodium 141.0 140 (132-148) mmol/l Chloride 106.0 101 (98-107) mmol/L Glucose 49 L (65-105) mg/dl Lactate > 20.0 H* (0.7-2.1) mmol/L Vent Mode Prvc Mechanical Rate 30 FiO2 100.0 % Tidal Volume 500 PEEP 5 Crit Value Called To Dr nolasco Crit Value Called By Nicole turner hadoop architect Crit Value Read Back Y Blood Gas Notified Time 2124 Potassium 4.4 (3.6-5.2) mmol/L Carbon Dioxide 13 L (22-30) mmol/L Anion Gap 31 H (10-20) BUN 24 H (7-17) mg/dL Creatinine 2.2 H (0.7-1.2) mg/dL Est GFR ( Amer) 27 Est GFR (Non-Af Amer) 22 POC Glucose (mg/dL) (65-110) mg/dL Random Glucose 119 H (65-105) mg/dL Calcium 6.1 L (8.6-10.4) mg/dl Phosphorus 10.3 H (2.5-4.5) mg/dL Magnesium 2.2 (1.6-2.3) mg/dL Total Bilirubin 0.8 (0.2-1.3) mg/dL AST 6230 H (14-36) U/L ALT 1680 H (9-52) U/L Alkaline Phosphatase 140 H D (38-126) U/L Total Protein 2.5 L (6.3-8.3) g/dL Albumin 1.2 L (3.5-5.0) g/dL Globulin 1.4 L (2.2-3.9) gm/dL Albumin/Globulin Ratio 0.9 L (1.0-2.1) Arterial Blood Potassium 4.0 (3.6-5.2) mmol/L Urine Color (YELLOW) Urine Clarity (Clear) Urine pH (5.0-8.0) Ur Specific [place] (1.003-1.030) Urine Protein (NEGATIVE) mg/dL Urine Glucose (UA) (Normal) mg/dL Urine Ketones (NEGATIVE) mg/dL Urine Blood (NEGATIVE) Urine Nitrate (NEGATIVE) Urine Bilirubin (NEGATIVE) Urine Urobilinogen (0.2-1.0) mg/dL Ur Leukocyte Esterase (Negative) Justyn/uL Urine WBC (Auto) (0-5) /hpf Urine RBC (Auto) (0-3) /hpf Ur Squamous Epith Cells (0-5) /hpf Urine Bacteria (<OCC) Hyaline Casts (0-2) /lpf Blood Type Antibody Screen 04/25/18 04/25/18 04/25/18 Range/Units 18:11 17:51 17:23 WBC (4.8-10.8) K/uL RBC (3.80-5.20) Mil/uL Hgb (11.0-16.0) g/dL Hct (34.0-47.0) % MCV (81.0-99.0) fL MCH (27.0-31.0) pg MCHC (33.0-37.0) g/dL RDW (11.5-14.5) % Plt Count (130-400) K/uL MPV (7.2-11.7) fL Neut % (Auto) (50.0-75.0) % Lymph % (Auto) (20.0-40.0) % Frontier % (Auto) (0.0-10.0) % Eos % (Auto) (0.0-4.0) % Baso % (Auto) (0.0-2.0) % Neut # (Auto) (1.8-7.0) K/uL Lymph # (Auto) (1.0-4.3) K/uL Frontier # (Auto) (0.0-0.8) K/uL Eos # (Auto) (0.0-0.7) K/uL Baso # (Auto) (0.0-0.2) K/uL Neutrophils % (Manual) (50-75) % Band Neutrophils % (0-2) % Lymphocytes % (Manual) (20-40) % Reactive Lymphs % (0-0) % Monocytes % (Manual) (0-10) % Basophils % (Manual) (0-2) % Metamyelocytes % (0-0) % Myelocytes % (0-0) % Nucleated RBC % (0-0) % Differential Comment Platelet Estimate (NORMAL) Large Platelets Anisocytosis (manual) Juanita Cells Smear Path Review PT (9.7-12.2) SECONDS INR APTT (21-34) SECONDS Puncture Site A line pCO2 26 L (35-45) mm/Hg pO2 90 (80-100) mm/Hg HCO3 9.7 L* (21-28) mmol/L ABG pH 7.12 L* (7.35-7.45) ABG Total CO2 9.3 L (22-28) mmol/L ABG O2 Saturation 99.5 H (95-98) % ABG Base Excess -19.4 L (-2.0-3.0) mmol/L Brandon Test Na ABG Potassium 4.1 (3.6-5.2) mmol/L A-a O2 Difference 591.0 mm/Hg Respiratory Index 6.6 Sodium 138.0 (132-148) mmol/l Chloride 104.0 (98-107) mmol/L Glucose 133 H (65-105) mg/dl Lactate 16.6 H* (0.7-2.1) mmol/L Vent Mode Prvc Mechanical Rate 30 FiO2 100.0 % Tidal Volume 500 PEEP 5 Crit Value Called To Dr antoine dodge Crit Value Called By Nicole turner hadoop architect Crit Value Read Back Y Blood Gas Notified Time 1727 Potassium (3.6-5.2) mmol/L Carbon Dioxide (22-30) mmol/L Anion Gap (10-20) BUN (7-17) mg/dL Creatinine (0.7-1.2) mg/dL Est GFR ( Amer) Est GFR (Non-Af Amer) POC Glucose (mg/dL) 120 H (65-110) mg/dL Random Glucose (65-105) mg/dL Calcium (8.6-10.4) mg/dl Phosphorus (2.5-4.5) mg/dL Magnesium (1.6-2.3) mg/dL Total Bilirubin (0.2-1.3) mg/dL AST (14-36) U/L ALT (9-52) U/L Alkaline Phosphatase (38-126) U/L Total Protein (6.3-8.3) g/dL Albumin (3.5-5.0) g/dL Globulin (2.2-3.9) gm/dL Albumin/Globulin Ratio (1.0-2.1) Arterial Blood Potassium 4.1 (3.6-5.2) mmol/L Urine Color Yellow (YELLOW) Urine Clarity Hazy (Clear) Urine pH 6.0 (5.0-8.0) Ur Specific [place] 1.011 (1.003-1.030) Urine Protein 2+ H (NEGATIVE) mg/dL Urine Glucose (UA) 1+ (Normal) mg/dL Urine Ketones Negative (NEGATIVE) mg/dL Urine Blood 2+ H (NEGATIVE) Urine Nitrate Negative (NEGATIVE) Urine Bilirubin Negative (NEGATIVE) Urine Urobilinogen Normal (0.2-1.0) mg/dL Ur Leukocyte Esterase 1+ H (Negative) Justyn/uL Urine WBC (Auto) 95 H (0-5) /hpf Urine RBC (Auto) 259 H (0-3) /hpf Ur Squamous Epith Cells 1 (0-5) /hpf Urine Bacteria Rare (<OCC) Hyaline Casts 6-10 H (0-2) /lpf Blood Type Antibody Screen 04/25/18 04/25/18 04/25/18 Range/Units 16:15 15:41 15:41 WBC 57.9 H* (4.8-10.8) K/uL RBC 3.40 L (3.80-5.20) Mil/uL Hgb 8.3 L D (11.0-16.0) g/dL Hct 28.8 L (34.0-47.0) % MCV 84.7 D (81.0-99.0) fL MCH 24.6 L (27.0-31.0) pg MCHC 29.0 L (33.0-37.0) g/dL RDW 16.1 H (11.5-14.5) % Plt Count 103 L D (130-400) K/uL MPV 9.0 (7.2-11.7) fL Neut % (Auto) (50.0-75.0) % Lymph % (Auto) (20.0-40.0) % Frontier % (Auto) (0.0-10.0) % Eos % (Auto) (0.0-4.0) % Baso % (Auto) (0.0-2.0) % Neut # (Auto) (1.8-7.0) K/uL Lymph # (Auto) (1.0-4.3) K/uL Frontier # (Auto) (0.0-0.8) K/uL Eos # (Auto) (0.0-0.7) K/uL Baso # (Auto) (0.0-0.2) K/uL Neutrophils % (Manual) (50-75) % Band Neutrophils % (0-2) % Lymphocytes % (Manual) (20-40) % Reactive Lymphs % (0-0) % Monocytes % (Manual) (0-10) % Basophils % (Manual) (0-2) % Metamyelocytes % (0-0) % Myelocytes % (0-0) % Nucleated RBC % (0-0) % Differential Comment Platelet Estimate (NORMAL) Large Platelets Anisocytosis (manual) Juanita Cells Smear Path Review PT (9.7-12.2) SECONDS INR APTT (21-34) SECONDS Puncture Site Line pCO2 45 (35-45) mm/Hg pO2 67 L (80-100) mm/Hg HCO3 5.6 L* (21-28) mmol/L ABG pH 6.90 L* (7.35-7.45) ABG Total CO2 10.2 L (22-28) mmol/L ABG O2 Saturation 90.1 L (95-98) % ABG Base Excess -23.9 L (-2.0-3.0) mmol/L Brandon Test Na ABG Potassium 4.9 (3.6-5.2) mmol/L A-a O2 Difference 590.0 mm/Hg Respiratory Index 8.8 Sodium 136.0 141 (132-148) mmol/l Chloride 103.0 102 (98-107) mmol/L Glucose 170 H (65-105) mg/dl Lactate 17.4 H* (0.7-2.1) mmol/L Vent Mode A/c Mechanical Rate FiO2 100.0 % Tidal Volume PEEP Crit Value Called To Dr artis Crit Value Called By Nicole turner hadoop architect Crit Value Read Back Y Blood Gas Notified Time 1622 Potassium 5.3 H (3.6-5.2) mmol/L Carbon Dioxide 12 L (22-30) mmol/L Anion Gap 33 H (10-20) BUN 21 H (7-17) mg/dL Creatinine 2.1 H (0.7-1.2) mg/dL Est GFR ( Amer) 28 Est GFR (Non-Af Amer) 23 POC Glucose (mg/dL) (65-110) mg/dL Random Glucose 162 H (65-105) mg/dL Calcium 9.9 (8.6-10.4) mg/dl Phosphorus 10.7 H (2.5-4.5) mg/dL Magnesium 2.1 (1.6-2.3) mg/dL Total Bilirubin 0.3 (0.2-1.3) mg/dL AST 1421 H (14-36) U/L ALT 507 H D (9-52) U/L Alkaline Phosphatase 77 (38-126) U/L Total Protein 2.5 L (6.3-8.3) g/dL Albumin 1.2 L D (3.5-5.0) g/dL Globulin 1.3 L (2.2-3.9) gm/dL Albumin/Globulin Ratio 0.9 L (1.0-2.1) Arterial Blood Potassium 4.9 (3.6-5.2) mmol/L Urine Color (YELLOW) Urine Clarity (Clear) Urine pH (5.0-8.0) Ur Specific [place] (1.003-1.030) Urine Protein (NEGATIVE) mg/dL Urine Glucose (UA) (Normal) mg/dL Urine Ketones (NEGATIVE) mg/dL Urine Blood (NEGATIVE) Urine Nitrate (NEGATIVE) Urine Bilirubin (NEGATIVE) Urine Urobilinogen (0.2-1.0) mg/dL Ur Leukocyte Esterase (Negative) Justyn/uL Urine WBC (Auto) (0-5) /hpf Urine RBC (Auto) (0-3) /hpf Ur Squamous Epith Cells (0-5) /hpf Urine Bacteria (<OCC) Hyaline Casts (0-2) /lpf Blood Type Antibody Screen 04/25/18 04/25/18 04/25/18 Range/Units 15:13 14:54 12:36 WBC (4.8-10.8) K/uL RBC (3.80-5.20) Mil/uL Hgb (11.0-16.0) g/dL Hct (34.0-47.0) % MCV (81.0-99.0) fL MCH (27.0-31.0) pg MCHC (33.0-37.0) g/dL RDW (11.5-14.5) % Plt Count (130-400) K/uL MPV (7.2-11.7) fL Neut % (Auto) (50.0-75.0) % Lymph % (Auto) (20.0-40.0) % Frontier % (Auto) (0.0-10.0) % Eos % (Auto) (0.0-4.0) % Baso % (Auto) (0.0-2.0) % Neut # (Auto) (1.8-7.0) K/uL Lymph # (Auto) (1.0-4.3) K/uL [place] # (Auto) (0.0-0.8) K/uL Eos # (Auto) (0.0-0.7) K/uL Baso # (Auto) (0.0-0.2) K/uL Neutrophils % (Manual) (50-75) % Band Neutrophils % (0-2) % Lymphocytes % (Manual) (20-40) % Reactive Lymphs % (0-0) % Monocytes % (Manual) (0-10) % Basophils % (Manual) (0-2) % Metamyelocytes % (0-0) % Myelocytes % (0-0) % Nucleated RBC % (0-0) % Differential Comment Platelet Estimate (NORMAL) Large Platelets Anisocytosis (manual) [place] Cells Smear Path Review PT (9.7-12.2) SECONDS INR APTT (21-34) SECONDS Puncture Site Line Line pCO2 49 H 94 H* (35-45) mm/Hg pO2 56 L 35 L* (80-100) mm/Hg HCO3 5.1 L* 36.6 H (21-28) mmol/L ABG pH 6.88 L* 7.31 L (7.35-7.45) ABG Total CO2 10.7 L 50.2 H (22-28) mmol/L ABG O2 Saturation 80.0 L 64.4 L (95-98) % ABG Base Excess -24.1 L 16.2 H (-2.0-3.0) mmol/L Brandon Test Na Na ABG Potassium 4.8 4.8 (3.6-5.2) mmol/L A-a O2 Difference 596.0 561.0 mm/Hg Respiratory Index 10.6 16.0 Sodium 138.0 158.0 H (132-148) mmol/l Chloride 102.0 108.0 H (98-107) mmol/L Glucose 141 H 86 (65-105) mg/dl Lactate 18.3 H* 17.9 H* (0.7-2.1) mmol/L Vent Mode A/c Mechanical Rate FiO2 100.0 100.0 % Tidal Volume PEEP Crit Value Called To Dr chandra artis Crit Value Called By Nicole turner hadoop architect Nicole norman hadoop architect Crit Value Read Back Y Y Blood Gas Notified Time 1518 1458 Potassium (3.6-5.2) mmol/L Carbon Dioxide (22-30) mmol/L Anion Gap (10-20) BUN (7-17) mg/dL Creatinine (0.7-1.2) mg/dL Est GFR ( Amer) Est GFR (Non-Af Amer) POC Glucose (mg/dL) 152 H (65-110) mg/dL Random Glucose (65-105) mg/dL Calcium (8.6-10.4) mg/dl Phosphorus (2.5-4.5) mg/dL Magnesium (1.6-2.3) mg/dL Total Bilirubin (0.2-1.3) mg/dL AST (14-36) U/L ALT (9-52) U/L Alkaline Phosphatase (38-126) U/L Total Protein (6.3-8.3) g/dL Albumin (3.5-5.0) g/dL Globulin (2.2-3.9) gm/dL Albumin/Globulin Ratio (1.0-2.1) Arterial Blood Potassium 4.8 4.8 (3.6-5.2) mmol/L Urine Color (YELLOW) Urine Clarity (Clear) Urine pH (5.0-8.0) Ur Specific [place] (1.003-1.030) Urine Protein (NEGATIVE) mg/dL Urine Glucose (UA) (Normal) mg/dL Urine Ketones (NEGATIVE) mg/dL Urine Blood (NEGATIVE) Urine Nitrate (NEGATIVE) Urine Bilirubin (NEGATIVE) Urine Urobilinogen (0.2-1.0) mg/dL Ur Leukocyte Esterase (Negative) Justyn/uL Urine WBC (Auto) (0-5) /hpf Urine RBC (Auto) (0-3) /hpf Ur Squamous Epith Cells (0-5) /hpf Urine Bacteria (<OCC) Hyaline Casts (0-2) /lpf Blood Type Antibody Screen 04/25/18 04/25/18 04/25/18 Range/Units 10:42 10:42 10:27 WBC 72.6 H* (4.8-10.8) K/uL RBC 5.33 H (3.80-5.20) Mil/uL Hgb 13.3 (11.0-16.0) g/dL Hct 42.6 (34.0-47.0) % MCV 80.0 L D (81.0-99.0) fL MCH 25.0 L (27.0-31.0) pg MCHC 31.2 L (33.0-37.0) g/dL RDW 16.3 H (11.5-14.5) % Plt Count 294 (130-400) K/uL MPV 9.5 (7.2-11.7) fL Neut % (Auto) 92.4 H (50.0-75.0) % Lymph % (Auto) 4.8 L (20.0-40.0) % Frontier % (Auto) 1.7 (0.0-10.0) % Eos % (Auto) 0.4 (0.0-4.0) % Baso % (Auto) 0.7 (0.0-2.0) % Neut # (Auto) 67.1 H (1.8-7.0) K/uL Lymph # (Auto) 3.5 (1.0-4.3) K/uL [place] # (Auto) 1.2 H (0.0-0.8) K/uL Eos # (Auto) 0.3 (0.0-0.7) K/uL Baso # (Auto) 0.5 H (0.0-0.2) K/uL Neutrophils % (Manual) 71 (50-75) % Band Neutrophils % 14 H* (0-2) % Lymphocytes % (Manual) 6 L (20-40) % Reactive Lymphs % 1 H (0-0) % Monocytes % (Manual) 5 (0-10) % Basophils % (Manual) (0-2) % Metamyelocytes % 3 H (0-0) % Myelocytes % (0-0) % Nucleated RBC % (0-0) % Differential Comment Platelet Estimate Normal (NORMAL) Large Platelets Present Anisocytosis (manual) Slight [place] Cells Moderate Smear Path Review PT 15.2 H (9.7-12.2) SECONDS INR 1.4 APTT 36 H (21-34) SECONDS Puncture Site Lf pCO2 21 L (35-45) mm/Hg pO2 91 (80-100) mm/Hg HCO3 16.1 L (21-28) mmol/L ABG pH 7.36 (7.35-7.45) ABG Total CO2 12.5 L (22-28) mmol/L ABG O2 Saturation 98.9 H (95-98) % ABG Base Excess -11.3 L (-2.0-3.0) mmol/L Brandon Test Na ABG Potassium 3.7 (3.6-5.2) mmol/L A-a O2 Difference 311.0 mm/Hg Respiratory Index 3.4 Sodium 135.0 (132-148) mmol/l Chloride 105.0 (98-107) mmol/L Glucose 164 H (65-105) mg/dl Lactate 6.1 H* (0.7-2.1) mmol/L Vent Mode Prvc Mechanical Rate 25 FiO2 60.0 % Tidal Volume 500 PEEP 5 Crit Value Called To Dr antoine dodge Crit Value Called By Nicole turner hadoop architect Crit Value Read Back Y Blood Gas Notified Time 1030 Potassium (3.6-5.2) mmol/L Carbon Dioxide (22-30) mmol/L Anion Gap (10-20) BUN (7-17) mg/dL Creatinine (0.7-1.2) mg/dL Est GFR ( Amer) Est GFR (Non-Af Amer) POC Glucose (mg/dL) (65-110) mg/dL Random Glucose (65-105) mg/dL Calcium (8.6-10.4) mg/dl Phosphorus (2.5-4.5) mg/dL Magnesium (1.6-2.3) mg/dL Total Bilirubin (0.2-1.3) mg/dL AST (14-36) U/L ALT (9-52) U/L Alkaline Phosphatase (38-126) U/L Total Protein (6.3-8.3) g/dL Albumin (3.5-5.0) g/dL Globulin (2.2-3.9) gm/dL Albumin/Globulin Ratio (1.0-2.1) Arterial Blood Potassium 3.7 (3.6-5.2) mmol/L Urine Color (YELLOW) Urine Clarity (Clear) Urine pH (5.0-8.0) Ur Specific [place] (1.003-1.030) Urine Protein (NEGATIVE) mg/dL Urine Glucose (UA) (Normal) mg/dL Urine Ketones (NEGATIVE) mg/dL Urine Blood (NEGATIVE) Urine Nitrate (NEGATIVE) Urine Bilirubin (NEGATIVE) Urine Urobilinogen (0.2-1.0) mg/dL Ur Leukocyte Esterase (Negative) Jusytn/uL Urine WBC (Auto) (0-5) /hpf Urine RBC (Auto) (0-3) /hpf Ur Squamous Epith Cells (0-5) /hpf Urine Bacteria (<OCC) Hyaline Casts (0-2) /lpf Blood Type Antibody Screen 04/25/18 04/25/18 04/25/18 Range/Units 05:30 04:19 04:02 WBC (4.8-10.8) K/uL RBC (3.80-5.20) Mil/uL Hgb (11.0-16.0) g/dL Hct (34.0-47.0) % MCV (81.0-99.0) fL MCH (27.0-31.0) pg MCHC (33.0-37.0) g/dL RDW (11.5-14.5) % Plt Count (130-400) K/uL MPV (7.2-11.7) fL Neut % (Auto) (50.0-75.0) % Lymph % (Auto) (20.0-40.0) % [place] % (Auto) (0.0-10.0) % Eos % (Auto) (0.0-4.0) % Baso % (Auto) (0.0-2.0) % Neut # (Auto) (1.8-7.0) K/uL Lymph # (Auto) (1.0-4.3) K/uL [place] # (Auto) (0.0-0.8) K/uL Eos # (Auto) (0.0-0.7) K/uL Baso # (Auto) (0.0-0.2) K/uL Neutrophils % (Manual) (50-75) % Band Neutrophils % (0-2) % Lymphocytes % (Manual) (20-40) % Reactive Lymphs % (0-0) % Monocytes % (Manual) (0-10) % Basophils % (Manual) (0-2) % Metamyelocytes % (0-0) % Myelocytes % (0-0) % Nucleated RBC % (0-0) % Differential Comment Platelet Estimate (NORMAL) Large Platelets Anisocytosis (manual) [place] Cells Smear Path Review PT (9.7-12.2) SECONDS INR APTT (21-34) SECONDS Puncture Site pCO2 (35-45) mm/Hg pO2 (80-100) mm/Hg HCO3 (21-28) mmol/L ABG pH (7.35-7.45) ABG Total CO2 (22-28) mmol/L ABG O2 Saturation (95-98) % ABG Base Excess (-2.0-3.0) mmol/L Brandon Test ABG Potassium (3.6-5.2) mmol/L A-a O2 Difference mm/Hg Respiratory Index Sodium (132-148) mmol/l Chloride (98-107) mmol/L Glucose (65-105) mg/dl Lactate (0.7-2.1) mmol/L Vent Mode Mechanical Rate FiO2 % Tidal Volume PEEP Crit Value Called To Crit Value Called By Crit Value Read Back Blood Gas Notified Time Potassium (3.6-5.2) mmol/L Carbon Dioxide (22-30) mmol/L Anion Gap (10-20) BUN (7-17) mg/dL Creatinine (0.7-1.2) mg/dL Est GFR ( Amer) Est GFR (Non-Af Amer) POC Glucose (mg/dL) 288 H (65-110) mg/dL Random Glucose (65-105) mg/dL Calcium (8.6-10.4) mg/dl Phosphorus (2.5-4.5) mg/dL Magnesium (1.6-2.3) mg/dL Total Bilirubin (0.2-1.3) mg/dL AST (14-36) U/L ALT (9-52) U/L Alkaline Phosphatase (38-126) U/L Total Protein (6.3-8.3) g/dL Albumin (3.5-5.0) g/dL Globulin (2.2-3.9) gm/dL Albumin/Globulin Ratio (1.0-2.1) Arterial Blood Potassium (3.6-5.2) mmol/L Urine Color (YELLOW) Urine Clarity (Clear) Urine pH (5.0-8.0) Ur Specific [place] (1.003-1.030) Urine Protein (NEGATIVE) mg/dL Urine Glucose (UA) (Normal) mg/dL Urine Ketones (NEGATIVE) mg/dL Urine Blood (NEGATIVE) Urine Nitrate (NEGATIVE) Urine Bilirubin (NEGATIVE) Urine Urobilinogen (0.2-1.0) mg/dL Ur Leukocyte Esterase (Negative) Justyn/uL Urine WBC (Auto) (0-5) /hpf Urine RBC (Auto) (0-3) /hpf Ur Squamous Epith Cells (0-5) /hpf Urine Bacteria (<OCC) Hyaline Casts (0-2) /lpf Blood Type O NEGATIVE Antibody Screen Negative 04/24/18 04/24/18 Range/Units 17:04 13:22 WBC (4.8-10.8) K/uL RBC (3.80-5.20) Mil/uL Hgb (11.0-16.0) g/dL Hct (34.0-47.0) % MCV (81.0-99.0) fL MCH (27.0-31.0) pg MCHC (33.0-37.0) g/dL RDW (11.5-14.5) % Plt Count (130-400) K/uL MPV (7.2-11.7) fL Neut % (Auto) (50.0-75.0) % Lymph % (Auto) (20.0-40.0) % [place] % (Auto) (0.0-10.0) % Eos % (Auto) (0.0-4.0) % Baso % (Auto) (0.0-2.0) % Neut # (Auto) (1.8-7.0) K/uL Lymph # (Auto) (1.0-4.3) K/uL [place] # (Auto) (0.0-0.8) K/uL Eos # (Auto) (0.0-0.7) K/uL Baso # (Auto) (0.0-0.2) K/uL Neutrophils % (Manual) (50-75) % Band Neutrophils % (0-2) % Lymphocytes % (Manual) (20-40) % Reactive Lymphs % (0-0) % Monocytes % (Manual) (0-10) % Basophils % (Manual) (0-2) % Metamyelocytes % (0-0) % Myelocytes % (0-0) % Nucleated RBC % (0-0) % Differential Comment Platelet Estimate (NORMAL) Large Platelets Anisocytosis (manual) [place] Cells Smear Path Review PT (9.7-12.2) SECONDS INR APTT (21-34) SECONDS Puncture Site pCO2 (35-45) mm/Hg pO2 (80-100) mm/Hg HCO3 (21-28) mmol/L ABG pH (7.35-7.45) ABG Total CO2 (22-28) mmol/L ABG O2 Saturation (95-98) % ABG Base Excess (-2.0-3.0) mmol/L Brandon Test ABG Potassium (3.6-5.2) mmol/L A-a O2 Difference mm/Hg Respiratory Index Sodium (132-148) mmol/l Chloride (98-107) mmol/L Glucose (65-105) mg/dl Lactate (0.7-2.1) mmol/L Vent Mode Mechanical Rate FiO2 % Tidal Volume PEEP Crit Value Called To Crit Value Called By Crit Value Read Back Blood Gas Notified Time Potassium (3.6-5.2) mmol/L Carbon Dioxide (22-30) mmol/L Anion Gap (10-20) BUN (7-17) mg/dL Creatinine (0.7-1.2) mg/dL Est GFR ( Amer) Est GFR (Non-Af Amer) POC Glucose (mg/dL) 225 H 228 H (65-110) mg/dL Random Glucose (65-105) mg/dL Calcium (8.6-10.4) mg/dl Phosphorus (2.5-4.5) mg/dL Magnesium (1.6-2.3) mg/dL Total Bilirubin (0.2-1.3) mg/dL AST (14-36) U/L ALT (9-52) U/L Alkaline Phosphatase (38-126) U/L Total Protein (6.3-8.3) g/dL Albumin (3.5-5.0) g/dL Globulin (2.2-3.9) gm/dL Albumin/Globulin Ratio (1.0-2.1) Arterial Blood Potassium (3.6-5.2) mmol/L Urine Color (YELLOW) Urine Clarity (Clear) Urine pH (5.0-8.0) Ur Specific [place] (1.003-1.030) Urine Protein (NEGATIVE) mg/dL Urine Glucose (UA) (Normal) mg/dL Urine Ketones (NEGATIVE) mg/dL Urine Blood (NEGATIVE) Urine Nitrate (NEGATIVE) Urine Bilirubin (NEGATIVE) Urine Urobilinogen (0.2-1.0) mg/dL Ur Leukocyte Esterase (Negative) Justyn/uL Urine WBC (Auto) (0-5) /hpf Urine RBC (Auto) (0-3) /hpf Ur Squamous Epith Cells (0-5) /hpf Urine Bacteria (<OCC) Hyaline Casts (0-2) /lpf Blood Type Antibody Screen Laboratory Results - last 24 hr 04/24/18 04/24/18 04/25/18 13:22 17:04 04:02 WBC RBC Hgb Hct MCV MCH MCHC RDW Plt Count MPV Neut % (Auto) Lymph % (Auto) [place] % (Auto) Eos % (Auto) Baso % (Auto) Neut # (Auto) Lymph # (Auto) [place] # (Auto) Eos # (Auto) Baso # (Auto) Neutrophils % (Manual) Band Neutrophils % Lymphocytes % (Manual) Reactive Lymphs % Monocytes % (Manual) Basophils % (Manual) Metamyelocytes % Myelocytes % Nucleated RBC % Differential Comment Platelet Estimate Large Platelets Anisocytosis (manual) [place] Cells Smear Path Review PT INR APTT Puncture Site pCO2 pO2 HCO3 ABG pH ABG Total CO2 ABG O2 Saturation ABG Base Excess Brandon Test ABG Potassium A-a O2 Difference Respiratory Index Sodium Chloride Glucose Lactate Vent Mode Mechanical Rate FiO2 Tidal Volume PEEP Crit Value Called To Crit Value Called By Crit Value Read Back Blood Gas Notified Time Potassium Carbon Dioxide Anion Gap BUN Creatinine Est GFR ( Amer) Est GFR (Non-Af Amer) POC Glucose (mg/dL) 228 H 225 H 288 H Random Glucose Calcium Phosphorus Magnesium Total Bilirubin AST ALT Alkaline Phosphatase Total Protein Albumin Globulin Albumin/Globulin Ratio Arterial Blood Potassium Urine Color Urine Clarity Urine pH Ur Specific [place] Urine Protein Urine Glucose (UA) Urine Ketones Urine Blood Urine Nitrate Urine Bilirubin Urine Urobilinogen Ur Leukocyte Esterase Urine WBC (Auto) Urine RBC (Auto) Ur Squamous Epith Cells Urine Bacteria Hyaline Casts Blood Type Antibody Screen 04/25/18 04/25/18 04/25/18 04:19 05:30 10:27 WBC RBC Hgb Hct MCV MCH MCHC RDW Plt Count MPV Neut % (Auto) Lymph % (Auto) [place] % (Auto) Eos % (Auto) Baso % (Auto) Neut # (Auto) Lymph # (Auto) [place] # (Auto) Eos # (Auto) Baso # (Auto) Neutrophils % (Manual) Band Neutrophils % Lymphocytes % (Manual) Reactive Lymphs % Monocytes % (Manual) Basophils % (Manual) Metamyelocytes % Myelocytes % Nucleated RBC % Differential Comment Platelet Estimate Large Platelets Anisocytosis (manual) [place] Cells Smear Path Review PT INR APTT Puncture Site Lf pCO2 21 L pO2 91 HCO3 16.1 L ABG pH 7.36 ABG Total CO2 12.5 L ABG O2 Saturation 98.9 H ABG Base Excess -11.3 L Brandon Test Na ABG Potassium 3.7 A-a O2 Difference 311.0 Respiratory Index 3.4 Sodium 135.0 Chloride 105.0 Glucose 164 H Lactate 6.1 H* Vent Mode Prvc Mechanical Rate 25 FiO2 60.0 Tidal Volume 500 PEEP 5 Crit Value Called To Dr antoine dodge Crit Value Called By Nicole turner hadoop architect Crit Value Read Back Y Blood Gas Notified Time 1030 Potassium Carbon Dioxide Anion Gap BUN Creatinine Est GFR ( Amer) Est GFR (Non-Af Amer) POC Glucose (mg/dL) Random Glucose Calcium Phosphorus Magnesium Total Bilirubin AST ALT Alkaline Phosphatase Total Protein Albumin Globulin Albumin/Globulin Ratio Arterial Blood Potassium 3.7 Urine Color Urine Clarity Urine pH Ur Specific [place] Urine Protein Urine Glucose (UA) Urine Ketones Urine Blood Urine Nitrate Urine Bilirubin Urine Urobilinogen Ur Leukocyte Esterase Urine WBC (Auto) Urine RBC (Auto) Ur Squamous Epith Cells Urine Bacteria Hyaline Casts Blood Type O NEGATIVE Antibody Screen Negative 04/25/18 04/25/18 04/25/18 10:42 10:42 12:36 WBC 72.6 H* RBC 5.33 H Hgb 13.3 Hct 42.6 MCV 80.0 L D MCH 25.0 L MCHC 31.2 L RDW 16.3 H Plt Count 294 MPV 9.5 Neut % (Auto) 92.4 H Lymph % (Auto) 4.8 L [place] % (Auto) 1.7 Eos % (Auto) 0.4 Baso % (Auto) 0.7 Neut # (Auto) 67.1 H Lymph # (Auto) 3.5 [place] # (Auto) 1.2 H Eos # (Auto) 0.3 Baso # (Auto) 0.5 H Neutrophils % (Manual) 71 Band Neutrophils % 14 H* Lymphocytes % (Manual) 6 L Reactive Lymphs % 1 H Monocytes % (Manual) 5 Basophils % (Manual) Metamyelocytes % 3 H Myelocytes % Nucleated RBC % Differential Comment Platelet Estimate Normal Large Platelets Present Anisocytosis (manual) Slight [place] Cells Moderate Smear Path Review PT 15.2 H INR 1.4 APTT 36 H Puncture Site pCO2 pO2 HCO3 ABG pH ABG Total CO2 ABG O2 Saturation ABG Base Excess Brandon Test ABG Potassium A-a O2 Difference Respiratory Index Sodium Chloride Glucose Lactate Vent Mode Mechanical Rate FiO2 Tidal Volume PEEP Crit Value Called To Crit Value Called By Crit Value Read Back Blood Gas Notified Time Potassium Carbon Dioxide Anion Gap BUN Creatinine Est GFR ( Amer) Est GFR (Non-Af Amer) POC Glucose (mg/dL) 152 H Random Glucose Calcium Phosphorus Magnesium Total Bilirubin AST ALT Alkaline Phosphatase Total Protein Albumin Globulin Albumin/Globulin Ratio Arterial Blood Potassium Urine Color Urine Clarity Urine pH Ur Specific [place] Urine Protein Urine Glucose (UA) Urine Ketones Urine Blood Urine Nitrate Urine Bilirubin Urine Urobilinogen Ur Leukocyte Esterase Urine WBC (Auto) Urine RBC (Auto) Ur Squamous Epith Cells Urine Bacteria Hyaline Casts Blood Type Antibody Screen 04/25/18 04/25/18 04/25/18 14:54 15:13 15:41 WBC RBC Hgb Hct MCV MCH MCHC RDW Plt Count MPV Neut % (Auto) Lymph % (Auto) [place] % (Auto) Eos % (Auto) Baso % (Auto) Neut # (Auto) Lymph # (Auto) [place] # (Auto) Eos # (Auto) Baso # (Auto) Neutrophils % (Manual) Band Neutrophils % Lymphocytes % (Manual) Reactive Lymphs % Monocytes % (Manual) Basophils % (Manual) Metamyelocytes % Myelocytes % Nucleated RBC % Differential Comment Platelet Estimate Large Platelets Anisocytosis (manual) Juanita Cells Smear Path Review PT INR APTT Puncture Site Line Line pCO2 94 H* 49 H pO2 35 L* 56 L HCO3 36.6 H 5.1 L* ABG pH 7.31 L 6.88 L* ABG Total CO2 50.2 H 10.7 L ABG O2 Saturation 64.4 L 80.0 L ABG Base Excess 16.2 H -24.1 L Brandon Test Na Na ABG Potassium 4.8 4.8 A-a O2 Difference 561.0 596.0 Respiratory Index 16.0 10.6 Sodium 158.0 H 138.0 141 Chloride 108.0 H 102.0 102 Glucose 86 141 H Lactate 17.9 H* 18.3 H* Vent Mode A/c Mechanical Rate FiO2 100.0 100.0 Tidal Volume PEEP Crit Value Called To Dr chandra artis Crit Value Called By Nicole norman hadoop architect Nicole turner hadoop architect Crit Value Read Back Y Y Blood Gas Notified Time 1458 1518 Potassium 5.3 H Carbon Dioxide 12 L Anion Gap 33 H BUN 21 H Creatinine 2.1 H Est GFR ( Amer) 28 Est GFR (Non-Af Amer) 23 POC Glucose (mg/dL) Random Glucose 162 H Calcium 9.9 Phosphorus 10.7 H Magnesium 2.1 Total Bilirubin 0.3 AST 1421 H ALT 507 H D Alkaline Phosphatase 77 Total Protein 2.5 L Albumin 1.2 L D Globulin 1.3 L Albumin/Globulin Ratio 0.9 L Arterial Blood Potassium 4.8 4.8 Urine Color Urine Clarity Urine pH Ur Specific [place] Urine Protein Urine Glucose (UA) Urine Ketones Urine Blood Urine Nitrate Urine Bilirubin Urine Urobilinogen Ur Leukocyte Esterase Urine WBC (Auto) Urine RBC (Auto) Ur Squamous Epith Cells Urine Bacteria Hyaline Casts Blood Type Antibody Screen 04/25/18 04/25/18 04/25/18 15:41 16:15 17:23 WBC 57.9 H* RBC 3.40 L Hgb 8.3 L D Hct 28.8 L MCV 84.7 D MCH 24.6 L MCHC 29.0 L RDW 16.1 H Plt Count 103 L D MPV 9.0 Neut % (Auto) Lymph % (Auto) [place] % (Auto) Eos % (Auto) Baso % (Auto) Neut # (Auto) Lymph # (Auto) [place] # (Auto) Eos # (Auto) Baso # (Auto) Neutrophils % (Manual) Band Neutrophils % Lymphocytes % (Manual) Reactive Lymphs % Monocytes % (Manual) Basophils % (Manual) Metamyelocytes % Myelocytes % Nucleated RBC % Differential Comment Platelet Estimate Large Platelets Anisocytosis (manual) [place]ita Cells Smear Path Review PT INR APTT Puncture Site Line A line pCO2 45 26 L pO2 67 L 90 HCO3 5.6 L* 9.7 L* ABG pH 6.90 L* 7.12 L* ABG Total CO2 10.2 L 9.3 L ABG O2 Saturation 90.1 L 99.5 H ABG Base Excess -23.9 L -19.4 L Brandon Test Na Na ABG Potassium 4.9 4.1 A-a O2 Difference 590.0 591.0 Respiratory Index 8.8 6.6 Sodium 136.0 138.0 Chloride 103.0 104.0 Glucose 170 H 133 H Lactate 17.4 H* 16.6 H* Vent Mode A/c Prvc Mechanical Rate 30 FiO2 100.0 100.0 Tidal Volume 500 PEEP 5 Crit Value Called To Dr chandra dodge Crit Value Called By Nicole turner hadoop architect Nicole turner hadoop architect Crit Value Read Back Y Y Blood Gas Notified Time 1622 1727 Potassium Carbon Dioxide Anion Gap BUN Creatinine Est GFR ( Amer) Est GFR (Non-Af Amer) POC Glucose (mg/dL) Random Glucose Calcium Phosphorus Magnesium Total Bilirubin AST ALT Alkaline Phosphatase Total Protein Albumin Globulin Albumin/Globulin Ratio Arterial Blood Potassium 4.9 4.1 Urine Color Urine Clarity Urine pH Ur Specific [place] Urine Protein Urine Glucose (UA) Urine Ketones Urine Blood Urine Nitrate Urine Bilirubin Urine Urobilinogen Ur Leukocyte Esterase Urine WBC (Auto) Urine RBC (Auto) Ur Squamous Epith Cells Urine Bacteria Hyaline Casts Blood Type Antibody Screen 04/25/18 04/25/18 04/25/18 17:51 18:11 18:12 WBC 55.8 H* RBC 3.96 Hgb 10.4 L D Hct 33.5 L MCV 84.6 MCH 26.2 L MCHC 30.9 L RDW 15.9 H Plt Count 76 L D MPV 9.2 Neut % (Auto) Lymph % (Auto) Frontier % (Auto) Eos % (Auto) Baso % (Auto) Neut # (Auto) Lymph # (Auto) Frontier # (Auto) Eos # (Auto) Baso # (Auto) Neutrophils % (Manual) Band Neutrophils % Lymphocytes % (Manual) Reactive Lymphs % Monocytes % (Manual) Basophils % (Manual) Metamyelocytes % Myelocytes % Nucleated RBC % Differential Comment Platelet Estimate Large Platelets Anisocytosis (manual) Juanita Cells Smear Path Review PT INR APTT Puncture Site pCO2 pO2 HCO3 ABG pH ABG Total CO2 ABG O2 Saturation ABG Base Excess Brandon Test ABG Potassium A-a O2 Difference Respiratory Index Sodium Chloride Glucose Lactate Vent Mode Mechanical Rate FiO2 Tidal Volume PEEP Crit Value Called To Crit Value Called By Crit Value Read Back Blood Gas Notified Time Potassium Carbon Dioxide Anion Gap BUN Creatinine Est GFR ( Amer) Est GFR (Non-Af Amer) POC Glucose (mg/dL) 120 H Random Glucose Calcium Phosphorus Magnesium Total Bilirubin AST ALT Alkaline Phosphatase Total Protein Albumin Globulin Albumin/Globulin Ratio Arterial Blood Potassium Urine Color Yellow Urine Clarity Hazy Urine pH 6.0 Ur Specific [place] 1.011 Urine Protein 2+ H Urine Glucose (UA) 1+ Urine Ketones Negative Urine Blood 2+ H Urine Nitrate Negative Urine Bilirubin Negative Urine Urobilinogen Normal Ur Leukocyte Esterase 1+ H Urine WBC (Auto) 95 H Urine RBC (Auto) 259 H Ur Squamous Epith Cells 1 Urine Bacteria Rare Hyaline Casts 6-10 H Blood Type Antibody Screen 04/25/18 04/25/18 04/25/18 18:12 21:20 21:33 WBC RBC Hgb Hct MCV MCH MCHC RDW Plt Count MPV Neut % (Auto) Lymph % (Auto) Frontier % (Auto) Eos % (Auto) Baso % (Auto) Neut # (Auto) Lymph # (Auto) Frontier # (Auto) Eos # (Auto) Baso # (Auto) Neutrophils % (Manual) Band Neutrophils % Lymphocytes % (Manual) Reactive Lymphs % Monocytes % (Manual) Basophils % (Manual) Metamyelocytes % Myelocytes % Nucleated RBC % Differential Comment Platelet Estimate Large Platelets Anisocytosis (manual) Juanita Cells Smear Path Review PT 54.9 H* D INR 5.0 D APTT 65 H D Puncture Site A line pCO2 19 L* pO2 75 L HCO3 5.7 L* ABG pH 7.03 L* ABG Total CO2 5.6 L ABG O2 Saturation 95.6 ABG Base Excess -24.2 L Brandon Test Na ABG Potassium 4.0 A-a O2 Difference 614.0 Respiratory Index 8.2 Sodium 140 141.0 Chloride 101 106.0 Glucose 49 L Lactate > 20.0 H* Vent Mode Prvc Mechanical Rate 30 FiO2 100.0 Tidal Volume 500 PEEP 5 Crit Value Called To Dr nolasco Crit Value Called By Nicole turner hadoop architect Crit Value Read Back Y Blood Gas Notified Time 2124 Potassium 4.4 Carbon Dioxide 13 L Anion Gap 31 H BUN 24 H Creatinine 2.2 H Est GFR ( Amer) 27 Est GFR (Non-Af Amer) 22 POC Glucose (mg/dL) Random Glucose 119 H Calcium 6.1 L Phosphorus 10.3 H Magnesium 2.2 Total Bilirubin 0.8 AST 6230 H ALT 1680 H Alkaline Phosphatase 140 H D Total Protein 2.5 L Albumin 1.2 L Globulin 1.4 L Albumin/Globulin Ratio 0.9 L Arterial Blood Potassium 4.0 Urine Color Urine Clarity Urine pH Ur Specific [place] Urine Protein Urine Glucose (UA) Urine Ketones Urine Blood Urine Nitrate Urine Bilirubin Urine Urobilinogen Ur Leukocyte Esterase Urine WBC (Auto) Urine RBC (Auto) Ur Squamous Epith Cells Urine Bacteria Hyaline Casts Blood Type Antibody Screen 04/25/18 04/25/18 04/25/18 21:50 21:52 22:20 WBC RBC Hgb Hct MCV MCH MCHC RDW Plt Count MPV Neut % (Auto) Lymph % (Auto) Frontier % (Auto) Eos % (Auto) Baso % (Auto) Neut # (Auto) Lymph # (Auto) Frontier # (Auto) Eos # (Auto) Baso # (Auto) Neutrophils % (Manual) Band Neutrophils % Lymphocytes % (Manual) Reactive Lymphs % Monocytes % (Manual) Basophils % (Manual) Metamyelocytes % Myelocytes % Nucleated RBC % Differential Comment Platelet Estimate Large Platelets Anisocytosis (manual) Juanita Cells Smear Path Review PT INR APTT Puncture Site pCO2 pO2 HCO3 ABG pH ABG Total CO2 ABG O2 Saturation ABG Base Excess Brandon Test ABG Potassium A-a O2 Difference Respiratory Index Sodium Chloride Glucose Lactate Vent Mode Mechanical Rate FiO2 Tidal Volume PEEP Crit Value Called To Crit Value Called By Crit Value Read Back Blood Gas Notified Time Potassium Carbon Dioxide Anion Gap BUN Creatinine Est GFR ( Amer) Est GFR (Non-Af Amer) POC Glucose (mg/dL) 49 L 47 L 114 H Random Glucose Calcium Phosphorus Magnesium Total Bilirubin AST ALT Alkaline Phosphatase Total Protein Albumin Globulin Albumin/Globulin Ratio Arterial Blood Potassium Urine Color Urine Clarity Urine pH Ur Specific [place] Urine Protein Urine Glucose (UA) Urine Ketones Urine Blood Urine Nitrate Urine Bilirubin Urine Urobilinogen Ur Leukocyte Esterase Urine WBC (Auto) Urine RBC (Auto) Ur Squamous Epith Cells Urine Bacteria Hyaline Casts Blood Type Antibody Screen 04/25/18 04/26/18 04/26/18 23:29 00:05 00:45 WBC 60.8 H* RBC 3.23 L Hgb 8.4 L D Hct 27.7 L MCV 86.0 MCH 26.2 L MCHC 30.4 L RDW 16.2 H Plt Count 70 L MPV 12.2 H Neut % (Auto) 81.8 H Lymph % (Auto) 14.4 L Frontier % (Auto) 1.9 Eos % (Auto) 1.0 Baso % (Auto) 0.9 Neut # (Auto) 49.7 H Lymph # (Auto) 8.7 H Frontier # (Auto) 1.2 H Eos # (Auto) 0.6 Baso # (Auto) 0.6 H Neutrophils % (Manual) 55 Band Neutrophils % 12 H* Lymphocytes % (Manual) 16 L Reactive Lymphs % Monocytes % (Manual) 8 Basophils % (Manual) 1 Metamyelocytes % 7 H Myelocytes % 1 H Nucleated RBC % 3 H Differential Comment Platelet Estimate Decreased L Large Platelets Anisocytosis (manual) [place] Cells Smear Path Review PT INR APTT Puncture Site pCO2 pO2 HCO3 ABG pH ABG Total CO2 ABG O2 Saturation ABG Base Excess [place] Test ABG Potassium A-a O2 Difference Respiratory Index Sodium Chloride Glucose Lactate Vent Mode Mechanical Rate FiO2 Tidal Volume PEEP Crit Value Called To Crit Value Called By Crit Value Read Back Blood Gas Notified Time Potassium Carbon Dioxide Anion Gap BUN Creatinine Est GFR ( Amer) Est GFR (Non-Af Amer) POC Glucose (mg/dL) 98 97 Random Glucose Calcium Phosphorus Magnesium Total Bilirubin AST ALT Alkaline Phosphatase Total Protein Albumin Globulin Albumin/Globulin Ratio Arterial Blood Potassium Urine Color Urine Clarity Urine pH Ur Specific [place] Urine Protein Urine Glucose (UA) Urine Ketones Urine Blood Urine Nitrate Urine Bilirubin Urine Urobilinogen Ur Leukocyte Esterase Urine WBC (Auto) Urine RBC (Auto) Ur Squamous Epith Cells Urine Bacteria Hyaline Casts Blood Type Antibody Screen 04/26/18 04/26/18 04/26/18 00:45 05:36 06:04 WBC RBC Hgb Hct MCV MCH MCHC RDW Plt Count MPV Neut % (Auto) Lymph % (Auto) Frontier % (Auto) Eos % (Auto) Baso % (Auto) Neut # (Auto) Lymph # (Auto) Frontier # (Auto) Eos # (Auto) Baso # (Auto) Neutrophils % (Manual) Band Neutrophils % Lymphocytes % (Manual) Reactive Lymphs % Monocytes % (Manual) Basophils % (Manual) Metamyelocytes % Myelocytes % Nucleated RBC % Differential Comment Platelet Estimate Large Platelets Anisocytosis (manual) [place] Cells Smear Path Review PT INR APTT Puncture Site A-ine pCO2 22 L pO2 72 L HCO3 ABG pH < 6.80 L* ABG Total CO2 ABG O2 Saturation 94.2 L ABG Base Excess [place] Test Na ABG Potassium 6.4 H* A-a O2 Difference 614.0 Respiratory Index 8.5 Sodium 143 139.0 Chloride 103 105.0 Glucose 113 H Lactate > 20.0 H* Vent Mode Prvc Mechanical Rate 30 FiO2 100.0 Tidal Volume 500 PEEP 5 Crit Value Called To Karen tomlin agricultural extension officer Crit Value Called By Aretha marrufo rt Crit Value Read Back Y Blood Gas Notified Time 549 Potassium 4.5 Carbon Dioxide 7 L* D Anion Gap 37 H BUN 20 H Creatinine 2.3 H Est GFR ( Amer) 26 Est GFR (Non-Af Amer) 21 POC Glucose (mg/dL) 71 Random Glucose 142 H Calcium 5.7 L* Phosphorus 9.8 H Magnesium 2.0 Total Bilirubin 0.9 AST 9376 H ALT 1993 H Alkaline Phosphatase 143 H Total Protein 2.2 L Albumin 1.0 L Globulin 1.2 L Albumin/Globulin Ratio 0.9 L Arterial Blood Potassium 6.4 H* Urine Color Urine Clarity Urine pH Ur Specific [place] Urine Protein Urine Glucose (UA) Urine Ketones Urine Blood Urine Nitrate Urine Bilirubin Urine Urobilinogen Ur Leukocyte Esterase Urine WBC (Auto) Urine RBC (Auto) Ur Squamous Epith Cells Urine Bacteria Hyaline Casts Blood Type Antibody Screen 04/26/18 04/26/18 06:22 06:22 WBC 52.0 H* RBC 2.20 L Hgb 5.7 L* D Hct 20.4 L MCV 92.8 D MCH 25.8 L MCHC 27.8 L RDW 17.4 H Plt Count 34 L D MPV 13.1 H Neut % (Auto) Lymph % (Auto) [place] % (Auto) Eos % (Auto) Baso % (Auto) Neut # (Auto) Lymph # (Auto) [place] # (Auto) Eos # (Auto) Baso # (Auto) Neutrophils % (Manual) Band Neutrophils % Lymphocytes % (Manual) Reactive Lymphs % Monocytes % (Manual) Basophils % (Manual) Metamyelocytes % Myelocytes % Nucleated RBC % Differential Comment Platelet Estimate Large Platelets Anisocytosis (manual) [place] Cells Smear Path Review PT INR APTT Puncture Site pCO2 pO2 HCO3 ABG pH ABG Total CO2 ABG O2 Saturation ABG Base Excess [place] Test ABG Potassium A-a O2 Difference Respiratory Index Sodium 143 Chloride 107 Glucose Lactate Vent Mode Mechanical Rate FiO2 Tidal Volume PEEP Crit Value Called To Crit Value Called By Crit Value Read Back Blood Gas Notified Time Potassium 6.4 H* D Carbon Dioxide 5 L* D Anion Gap 38 H BUN 17 Creatinine 2.5 H Est GFR ( Amer) 23 Est GFR (Non-Af Amer) 19 POC Glucose (mg/dL) Random Glucose 113 H Calcium 5.2 L* Phosphorus 12.0 H Magnesium 2.0 Total Bilirubin 0.6 AST 8636 H ALT 1632 H Alkaline Phosphatase 109 Total Protein 2.0 L Albumin 1.0 L Globulin 1.0 L Albumin/Globulin Ratio 1.0 Arterial Blood Potassium Urine Color Urine Clarity Urine pH Ur Specific [place] Urine Protein Urine Glucose (UA) Urine Ketones Urine Blood Urine Nitrate Urine Bilirubin Urine Urobilinogen Ur Leukocyte Esterase Urine WBC (Auto) Urine RBC (Auto) Ur Squamous Epith Cells Urine Bacteria Hyaline Casts Blood Type Antibody Screen Fingerstick Blood Sugar Results: 97 Critical Care Progress Note - Nutrition Nutrition: Nutrition Category Date Time Status NPO Diet [DIET] Diets 04/25/18 Breakfast Active Assessment/Plan - Assessment and Plan (Free Text) Assessment: Asystole - Pt treated as per ACLS protocol - ROSC was unable to be achieved - Pt was pronounced at 07:41
[2018-04-26 08:46] LABS: LYMPH # 4.2 K/uL (1.0-4.3); NEUT # 46.2 K/uL (1.8-7.0)
[2018-04-26 08:47] LABS: EOS # 0.5 K/uL (0.0-0.7); MONO # 1.1 K/uL (0.0-0.8)
[2018-04-26 08:51] LABS: LYMPHOCYTE 13 % (20-40); METAMYELOCYTE 5 % (0-0); MONOCYTE 2 % (0-10); MYELOCYTE 13 % (0-0); NUCLEATED RED BLOOD CELL 1 % (0-0); PROMYELOCYTE 3 % (0-0); TOTAL CELLS COUNTED 100
[2018-04-26 08:54] LABS: PLATELET ESTIMATE MARKEDLY DECREASED (NORMAL)
[2018-04-26 08:55] LABS: ANISOCYTOSIS SLIGHT; HYPOCHROMIC MODERATE; TOXIC GRANULATION PRESENT
[2018-04-26 08:56] LABS: BURR CELLS MODERATE; NEUTROPHIL 52 % (50-75)
[2018-04-26 09:58] LABS: BANDS 12 % (0-2)
--- NOTE | 2018-04-27 14:00 | CARD ---
APPROVED REPORT Date of service: 04/24/2018 EKG Measurement Heart [id number] <Conclusion> Sinus tachycardia Moderate voltage criteria for LVH, may be normal variant Nonspecific ST abnormality Abnormal ECG
== END 2018-04-26 07:41 | DRG 853 ==
LOC: C.ER 08:14 → C.9E 12:33 → C.3T 13:15 → C.9E 15:17 → C.6T 15:36 → C.9I 04-25 05:01
PROVIDERS: ADMIT Internal Medicine Nephrology; ATTEND Internal Medicine Nephrology
PROC: 0BH17EZ Insertion of Endotracheal Airway into Trachea, Via Natural or Artificial Opening (ICD-10-PCS; 2018-04-25)
PROC: 5A1945Z Respiratory Ventilation, 24-96 Consecutive Hours (ICD-10-PCS; 2018-04-25)
PROC: 0DTE0ZZ Resection of Large Intestine, Open Approach (ICD-10-PCS; principal; 2018-04-25 10:15)
DX: A41.9 Sepsis, unspecified organism (principal); J96.00 Acute respiratory failure, unspecified whether with hypoxia or hypercapnia; R65.21 Severe sepsis with septic shock; K51.00 Ulcerative (chronic) pancolitis without complications; K52.1 Toxic gastroenteritis and colitis; E87.2 Acidosis; N17.9 Acute kidney failure, unspecified; E87.5 Hyperkalemia; E87.6 Hypokalemia; F02.80 Dementia in other diseases classified elsewhere, unspecified severity, without behavioral disturbance, psychotic disturbance, mood disturbance, and anxiety; G30.9 Alzheimer's disease, unspecified; I10 Essential (primary) hypertension; K66.0 Peritoneal adhesions (postprocedural) (postinfection); Z85.048 Personal history of other malignant neoplasm of rectum, rectosigmoid junction, and anus; Z92.3 Personal history of irradiation